=== PATIENT | female | born 1975 | race Caucasian/White ===

== ENCOUNTER 2018-11-29 16:47 | Emergency (ER) | payer OTHER, SELFPAY ==
--- NOTE | 2018-11-29 17:02 | ED.FEMALEGU ---
HPI - Female Genitourinary <Dena Teresa PA-C - Last Filed: 11/29/18 21:38> General Chief complaint: Urogenital-Female Stated complaint: possible kidney stones on right side Time Seen by Provider: 11/29/18 16:56 Source: patient Mode of arrival: ambulatory Limitations: no limitations History of Present Illness HPI Narrative: This 42-year-old female comes to ED due to worsening right flank pain since yesterday and concern for recurrent kidney stone. She had a kidney stone about a year ago which she was advised would pass on its own, and pain did resolve. She states that current pain is similar in quality. She has also had some hematuria and dysuria as well as urgency and frequency, increased for about 4 days. She states that she has known bladder prolapse with surgery pending for that. She states that she was told symptoms may very well be due to this. She is feeling a little bit nauseous now, has not had any vomiting. She has not had fever, chills, sweats. She denies pain elsewhere in the abdomen. She denies any recent change in exercise or injury. She denies any chest pain or dyspnea. She states that the pain is achy but also like a dull knife. Maybe worse with sitting and to a lesser degree standing, no other exacerbating or alleviating features. Related Data Previous Rx's Medication Instructions Recorded hydrocodone-acetaminophen [Poyen] 1 tab PO Q6H PRN #8 tab 11/29/18 tamsulosin [Flomax] 0.4 mg PO DAILY #5 cap 11/29/18 Allergies Allergy/AdvReac Type Severity Reaction Status Date / Time No Known Drug Allergies Allergy Verified 11/29/18 17:03 Review of Systems <Dena Teresa PA-C - Last Filed: 11/29/18 21:38> Review of Systems ROS Unobtainable: All systems reviewed & are unremarkable except as noted in HPI and below PFSH <Dena Teresa PA-C - Last Filed: 11/29/18 21:38> Medical History Bladder prolapse, female, acquired (Chronic) History of renal calculi (Resolved) Surgical History Status post cholecystectomy (Resolved) Status post hysterectomy (Resolved) Social History Smoking Status: Never smoker Social History Smoking Status: Never smoker Exam <Dena Teresa PA-C - Last Filed: 11/29/18 21:38> Narrative Exam Narrative: GENERAL APPEARANCE: Patient sitting comfortably, in no distress. HEENT: PERRL, EOMI, no scleral icterus NECK: Supple, no masses LUNGS: Clear to auscultation bilaterally. HEART: Rate and rhythm regular, normal S1 and S2, no S3 or S4. ABDOMEN: Soft, nondistended, bowel sounds present x 4 quadrants, no masses palpable, no hepatosplenomegaly. Tender at the R. posteriorlateral costal margin, no L. CVAT or TTP elsewhere over the abdomen EXTREMITIES: No edema, no cyanosis DERMATOLOGIC: No jaundice or exanthem NEUROLOGIC: Alert and oriented with normal speech and coordination Initial Vital Signs Initial Vital Signs: Vital Signs Temperature 98.0 F 11/29/18 17:03 Pulse Rate 83 11/29/18 17:03 Respiratory Rate 14 11/29/18 17:03 Blood Pressure 129/67 11/29/18 17:03 Pulse Oximetry 100 11/29/18 17:03 <Donell Dixon DO - Last Filed: 11/29/18 23:13> Initial Vital Signs Initial Vital Signs: Vital Signs Temperature 98.0 F 11/29/18 17:03 Pulse Rate 83 11/29/18 17:03 Respiratory Rate 14 11/29/18 17:03 Blood Pressure 129/67 11/29/18 17:03 Pulse Oximetry 100 11/29/18 17:03 Course <Dena Teresa PA-C - Last Filed: 11/29/18 21:38> Additional Information: Reviewed with patient lab findings and CT findings. She does have a tiny stone on the right side. No other acute findings Patient is feeling considerably improved after medications. She has not had any vomiting and is tolerating oral fluids. She does not feel like she needs more pain medication tonight, was given a dose of tamsulosin and has a prepack of Zofran at home. 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 She agreed to return if any acutely wo. rsening symptoms. Orders Ordered: ED Orders 11/29/18 16:57 Urinalysis and Microscopic Stat 11/29/18 17:17 CT kidney ureter bladder (KUB) Stat 11/29/18 18:05 Complete Blood Count AUTO DIFF Stat Comprehensive Metabolic Panel Stat Lipase Stat Discontinued Medications Hydrocodone Bitart/Acetaminophen (Poyen 5/325) 1 tab PO NOW ONE Stop: 11/29/18 19:08 Last Admin: 11/29/18 19:21 Dose: 1 tab Hydromorphone HCl (Dilaudid) 0.5 mg IV NOW ONE Stop: 11/29/18 20:02 Last Admin: 11/29/18 20:11 Dose: 0.5 mg Sodium Chloride (Normal Saline 0.9%) 1,000 mls @ 1,000 mls/hr IV BOLUS ONE Stop: 11/29/18 18:13 Last Infusion: 11/29/18 20:03 Dose: 0 mls/hr Admin: 11/29/18 17:51 Dose: 1,000 mls/hr Ketorolac Tromethamine (Toradol) 30 mg IV NOW ONE Stop: 11/29/18 17:18 Last Admin: 11/29/18 17:51 Dose: 30 mg Ondansetron HCl (Zofran) 4 mg IV NOW ONE Stop: 11/29/18 17:18 Last Admin: 11/29/18 17:51 Dose: 4 mg Ondansetron HCl (Zofran Odt Prepack) 1 bottle MISC SEEINSTR ONE Stop: 11/29/18 20:56 Last Admin: 11/29/18 21:03 Dose: 1 bottle Tamsulosin HCl (Flomax) 0.4 mg PO NOW ONE Stop: 11/29/18 20:14 Last Admin: 11/29/18 20:18 Dose: 0.4 mg Vital Signs - 8 hr 11/29/18 17:03 11/29/18 19:45 11/29/18 20:43 Temperature 98.0 F Pulse Rate 83 71 72 Respiratory Rate 14 17 18 Blood Pressure 129/67 Blood Pressure [Left Arm] 117/67 111/67 Pulse Oximetry 100 99 97 <Donell Dixon DO - Last Filed: 11/29/18 23:13> Orders Ordered: ED Orders 11/29/18 16:57 Urinalysis and Microscopic Stat 11/29/18 17:17 CT kidney ureter bladder (KUB) Stat 11/29/18 18:05 Complete Blood Count AUTO DIFF Stat Comprehensive Metabolic Panel Stat Lipase Stat Discontinued Medications Hydrocodone Bitart/Acetaminophen (Poyen 5/325) 1 tab PO NOW ONE Stop: 11/29/18 19:08 Last Admin: 11/29/18 19:21 Dose: 1 tab Hydromorphone HCl (Dilaudid) 0.5 mg IV NOW ONE Stop: 11/29/18 20:02 Last Admin: 11/29/18 20:11 Dose: 0.5 mg Sodium Chloride (Normal Saline 0.9%) 1,000 mls @ 1,000 mls/hr IV BOLUS ONE Stop: 11/29/18 18:13 Last Infusion: 11/29/18 20:03 Dose: 0 mls/hr Admin: 11/29/18 17:51 Dose: 1,000 mls/hr Ketorolac Tromethamine (Toradol) 30 mg IV NOW ONE Stop: 11/29/18 17:18 Last Admin: 11/29/18 17:51 Dose: 30 mg Ondansetron HCl (Zofran) 4 mg IV NOW ONE Stop: 11/29/18 17:18 Last Admin: 11/29/18 17:51 Dose: 4 mg Ondansetron HCl (Zofran Odt Prepack) 1 bottle MISC SEEINSTR ONE Stop: 11/29/18 20:56 Last Admin: 11/29/18 21:03 Dose: 1 bottle Tamsulosin HCl (Flomax) 0.4 mg PO NOW ONE Stop: 11/29/18 20:14 Last Admin: 11/29/18 20:18 Dose: 0.4 mg Vital Signs - 8 hr 11/29/18 17:03 11/29/18 19:45 11/29/18 20:43 Temperature 98.0 F Pulse Rate 83 71 72 Respiratory Rate 14 17 18 Blood Pressure 129/67 Blood Pressure [Left Arm] 117/67 111/67 Pulse Oximetry 100 99 97 MDM - Female Genitourinary <Dena Teresa PA-C - Last Filed: 11/29/18 21:38> Lab Data Result diagrams: 11/29/18 18:05 11/29/18 18:05 Lab Results 11/29/18 11/29/18 11/29/18 Range/Units 16:57 18:05 18:05 WBC 9.0 (4.5-11.0) X10^3/uL RBC 4.36 (4.0-5.2) X10^6/uL Hgb 13.4 (12.0-16.0) g/dL Hct 39.9 (36-46) % MCV 91.6 (80-100) fL MCH 30.7 (26-34) PG MCHC 33.5 (30-36) % RDW 12.8 (11.6-14.8) % Plt Count 205 (150-400) X10^3/uL Neut % (Auto) 67.3 (50-75) % Lymph % (Auto) 22.3 L (25-40) % Curry % (Auto) 6.5 (3-14) % Eos % (Auto) 3.0 (2-4) % Baso % (Auto) 0.9 (0-2) % Neut # (Auto) 6100 (5784-4760) /uL Lymph # (Auto) 2000 (7130-3033) /uL Curry # (Auto) 600 (0-900) /uL Eos # (Auto) 300 (0-450) /uL Baso # (Auto) 100 (0-100) /uL Sodium 142 (137-145) mmol/L Potassium 3.9 (3.4-5.1) mmol/L Chloride 102 (98-107) mmol/L Carbon Dioxide 28 (22-32) mmol/L BUN 15 (7-17) mg/dL Creatinine 0.80 (0.52-1.04) mg/dL Estimated GFR > 60.0 (>60) mL/min BUN/Creatinine Ratio 18.8 (6-22) Glucose 77 (70-100) mg/dL Calcium 10.0 (8.4-10.2) mg/dL Total Bilirubin 0.2 (0.2-1.3) mg/dL AST 27 (14-36) IU/L ALT 29 (9-52) IU/L Alkaline Phosphatase 66 (38-126) U/L Total Protein 8.1 (6.3-8.2) g/dL Albumin 5.0 (3.5-5.0) g/dL Globulin 3.1 (1.7-4.1) g/dL Albumin/Globulin Ratio 1.6 (1.0-2.8) Lipase 52 (23-300) U/L Urine Color Yellow Urine Appearance Clear Urine pH 7.5 (4.5-8.0) Ur Specific [place] 1.015 (1.000-1.035) Urine Protein Negative (Negative) Urine Glucose (UA) Negative (Negative) g/dL Urine Ketones Negative (NEGATIVE) Urine Occult Blood Negative (Negative) Urine Nitrate Negative (Negative) Urine Bilirubin Negative (NEGATIVE) Urine Urobilinogen 0.2 (0.2) E.U./dL Ur Leukocyte Esterase Negative (NEGATIVE) Urine RBC None seen (0-5/HPF) Urine WBC 0-1/hpf (0-5/HPF) Ur Squamous Epith Cells 1-5 /hpf Amorphous Sediment 2+ Urine Bacteria None seen (None) Ur Culture Indicated? Cult not indicated Urine Dip Bedside Urine Glucose Negative Bedside Urine Bilirubin - Negative Bedside Urine Ketone - Negative Urine Specific [place] 1.015 Bedside Urine Occult Blood - Negative Bedside Urine pH 7.5 Bedside Urine Protein - Negative Bedside Urine Urobilinogen - Negative Bedside Urine Nitrite - Negative Bedside Urine Leukocytes - Negative Esterase Imaging Data CT scan - abdomen: Radiologist's impression: [address] [address] [address] Scan Report Signed Patient: Sarah Floyd [facility]#: [id number] : 1975Acct:[id number] Age/Sex: 42 / FDate of Service: 11/29/18 Loc: ED Accession Number: [id number] Procedure: CT kidney ureter bladder (KUB) Ordering Provider: Dena Teresa P.A-C PROCEDURE: CT KIDNEY URETER BLADDER (KUB) INDICATIONS: R. flank pain, h/o stone TECHNIQUE: Noncontrast 5 mm thick sections acquired from the diaphragms to the symphysis. 5 mm thick coronal and sagittal reformats were then performed. For radiation dose reduction, the following was used: automated exposure control, adjustment of mA and/or kV according to patient size. COMPARISON: None. FINDINGS: Image quality: Excellent. Lung bases: Lung bases are clear. Heart size is normal. Urinary system: Both kidneys are normal in size. 1 mm nonobstructing stone is noted in the inferior pole of the right kidney. No hydronephrosis or perinephric fat stranding. Both ureters appear non-dilated throughout their expected courses. Bladder wall thickness is normal; no calcified bladder stones. Multiple small phleboliths noted in the lower pelvis. Other solid organs: Liver is normal in size. Gallbladder is absent. Pancreas is normal in contours. Spleen is normal in size. No adrenal nodules. Peritoneum and bowel: Unenhanced bowel loops demonstrate normal wall thickness and caliber. No free fluid or air. The appendix is normal. Nodes and vessels: No retroperitoneal or mesenteric adenopathy by size criteria. Aorta and inferior vena cava are normal in caliber. Abdominal wall: No ventral hernias. Pelvis: No free pelvic fluid. No inguinal hernias or adenopathy. The uterus is absent. Bones: No suspicious bony lesions. No vertebral body compression fractures. Spine degenerative disease and facet arthropathy noted. IMPRESSION: 1. 1 mm nonobstructing right renal stone. 2. No hydronephrosis. 3. No free fluid or free air. 4. No dilated loops of bowel. 5. The appendix is normal. Dictated by: Galilea Lopez MD, PhD on 11/29/2018 at 17:49 Approved by: Galilea Lopez MD, PhD on 11/29/2018 at 17:55 <Donell Dixon, - Last Filed: 11/29/18 23:13> Lab Data Lab Results 11/29/18 11/29/18 11/29/18 Range/Units 16:57 18:05 18:05 WBC 9.0 (4.5-11.0) X10^3/uL RBC 4.36 (4.0-5.2) X10^6/uL Hgb 13.4 (12.0-16.0) g/dL Hct 39.9 (36-46) % MCV 91.6 (80-100) fL MCH 30.7 (26-34) PG MCHC 33.5 (30-36) % RDW 12.8 (11.6-14.8) % Plt Count 205 (150-400) X10^3/uL Neut % (Auto) 67.3 (50-75) % Lymph % (Auto) 22.3 L (25-40) % Curry % (Auto) 6.5 (3-14) % Eos % (Auto) 3.0 (2-4) % Baso % (Auto) 0.9 (0-2) % Neut # (Auto) 6100 (7102-9466) /uL Lymph # (Auto) 2000 (8826-6434) /uL Curry # (Auto) 600 (0-900) /uL Eos # (Auto) 300 (0-450) /uL Baso # (Auto) 100 (0-100) /uL Sodium 142 (137-145) mmol/L Potassium 3.9 (3.4-5.1) mmol/L Chloride 102 (98-107) mmol/L Carbon Dioxide 28 (22-32) mmol/L BUN 15 (7-17) mg/dL Creatinine 0.80 (0.52-1.04) mg/dL Estimated GFR > 60.0 (>60) mL/min BUN/Creatinine Ratio 18.8 (6-22) Glucose 77 (70-100) mg/dL Calcium 10.0 (8.4-10.2) mg/dL Total Bilirubin 0.2 (0.2-1.3) mg/dL AST 27 (14-36) IU/L ALT 29 (9-52) IU/L Alkaline Phosphatase 66 (38-126) U/L Total Protein 8.1 (6.3-8.2) g/dL Albumin 5.0 (3.5-5.0) g/dL Globulin 3.1 (1.7-4.1) g/dL Albumin/Globulin Ratio 1.6 (1.0-2.8) Lipase 52 (23-300) U/L Urine Color Yellow Urine Appearance Clear Urine pH 7.5 (4.5-8.0) Ur Specific [place] 1.015 (1.000-1.035) Urine Protein Negative (Negative) Urine Glucose (UA) Negative (Negative) g/dL Urine Ketones Negative (NEGATIVE) Urine Occult Blood Negative (Negative) Urine Nitrate Negative (Negative) Urine Bilirubin Negative (NEGATIVE) Urine Urobilinogen 0.2 (0.2) E.U./dL Ur Leukocyte Esterase Negative (NEGATIVE) Urine RBC None seen (0-5/HPF) Urine WBC 0-1/hpf (0-5/HPF) Ur Squamous Epith Cells 1-5 /hpf Amorphous Sediment 2+ Urine Bacteria None seen (None) Ur Culture Indicated? Cult not indicated Urine Dip Bedside Urine Glucose Negative Bedside Urine Bilirubin - Negative Bedside Urine Ketone - Negative Urine Specific [place] 1.015 Bedside Urine Occult Blood - Negative Bedside Urine pH 7.5 Bedside Urine Protein - Negative Bedside Urine Urobilinogen - Negative Bedside Urine Nitrite - Negative Bedside Urine Leukocytes - Negative Esterase Discharge Plan Departure Patient Disposition: Home Clinical Impression: Kidney stone on right side Discharge Date/Time: 11/29/18 21:25 Interventions: ED Discharge Assessment Last Done: 11/29/18 21:25 Instructions: DI for Kidney Stones Activity Restrictions/Additional Instructions: You have a very small kidney stone on the right side that should pass on its own. You do not appear to have a urinary infection with this. Since you are feeling better you can rest at home. Drink plenty of fluids. Take ibuprofen 800 mg every 8 hr. You can take the prescription pain medicine if needed but remember it can make you drowsy and not to drive. Take another dose of tamsulosin each evening until you pass the stone (we have given you a dose tonight). 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 Return here if you have any acutely worsening symptoms, i.e. more severe pain, vomiting, fever, etc Prescriptions: New hydrocodone-acetaminophen [Poyen] 5-325 mg tablet 1 tab PO Q6H PRN (Reason: acute kidney stone pain) Qty: 8 RF: 0 tamsulosin [Flomax] 0.4 mg capsule 0.4 mg PO DAILY Qty: 5 RF: 0 <Donell Dixon DO - Last Filed: 11/29/18 23:13> Mikaela ED Attending Bhargavi Attestation: I was available for consultation during this patient's emergency department encounter
[2018-11-29 17:03] VITALS: BP 129/67; PULSE 83; RESP 14; TEMP 36.7; O2SAT 100; BMI 25.1
[2018-11-29 17:06] LABS: Bacteria Urine None Seen; RBC Urine None Seen (0-5/HPF)
[2018-11-29 17:08] LABS: Appearance Urine UA CLEAR; Bilirubin Urine UA NEGATIVE (NEGATIVE); Color Urine UA YELLOW; Glucose Urine UA NEGATIVE (Negative); Ketones Urine UA NEGATIVE (NEGATIVE); Leukocyte Esterase Urine UA NEGATIVE (NEGATIVE); Nitrite Urine UA NEGATIVE (Negative); Occult Blood Urine UA NEGATIVE (Negative); Protein Urine UA NEGATIVE (Negative); Specific Gravity Urine UA 1.015 (1.000-1.035); Urobilinogen Urine UA 0.2 E.U./dL (0.2); pH Urine UA 7.5 (4.5-8.0)
[2018-11-29 17:14] LABS: Amorphous Sediment Urine 2+; Squamous Epithelial Cell Urine 1-5 /HPF; WBC Urine 0-1/HPF (0-5/HPF)
[2018-11-29 17:15] LABS: Culture Indicated Urine Cult Not Indicated
--- NOTE | 2018-11-29 17:18 | ED_ITS ---
HPI - Female Genitourinary <Dena Teresa PA-C - Last Filed: 11/29/18 21:38> General Chief complaint: Urogenital-Female Stated complaint: possible kidney stones on right side Time Seen by Provider: 11/29/18 16:56 Source: patient Mode of arrival: ambulatory Limitations: no limitations History of Present Illness HPI Narrative: This 42-year-old female comes to ED due to worsening right flank pain since yesterday and concern for recurrent kidney stone. She had a kidney stone about a year ago which she was advised would pass on its own, and pain did resolve. She states that current pain is similar in quality. She has also had some hematuria and dysuria as well as urgency and frequency, increased for about 4 days. She states that she has known bladder prolapse with surgery pending for that. She states that she was told symptoms may very well be due to this. She is feeling a little bit nauseous now, has not had any vomiting. She has not had fever, chills, sweats. She denies pain elsewhere in the abdomen. She denies any recent change in exercise or injury. She denies any chest pain or dyspnea. She states that the pain is achy but also like a dull knife. Maybe worse with sitting and to a lesser degree standing, no other exacerbating or alleviating features. Related Data Previous Rx's Medication Instructions Recorded hydrocodone-acetaminophen [[place]] 1 tab PO Q6H PRN #8 tab 11/29/18 tamsulosin [Flomax] 0.4 mg PO DAILY #5 cap 11/29/18 Allergies Allergy/AdvReac Type Severity Reaction Status Date / Time No Known Drug Allergies Allergy Verified 11/29/18 17:03 Review of Systems <Dena Teresa PA-C - Last Filed: 11/29/18 21:38> Review of Systems ROS Unobtainable: All systems reviewed & are unremarkable except as noted in HPI and below PFSH <Dena Teresa PA-C - Last Filed: 11/29/18 21:38> Medical History Bladder prolapse, female, acquired (Chronic) History of renal calculi (Resolved) Surgical History Status post cholecystectomy (Resolved) Status post hysterectomy (Resolved) Social History Smoking Status: Never smoker Social History Smoking Status: Never smoker Exam <Dena Teresa PA-C - Last Filed: 11/29/18 21:38> Narrative Exam Narrative: GENERAL APPEARANCE: Patient sitting comfortably, in no distress. HEENT: PERRL, EOMI, no scleral icterus NECK: Supple, no masses LUNGS: Clear to auscultation bilaterally. HEART: Rate and rhythm regular, normal S1 and S2, no S3 or S4. ABDOMEN: Soft, nondistended, bowel sounds present x 4 quadrants, no masses palpable, no hepatosplenomegaly. Tender at the R. posteriorlateral costal margin, no L. CVAT or TTP elsewhere over the abdomen EXTREMITIES: No edema, no cyanosis DERMATOLOGIC: No jaundice or exanthem NEUROLOGIC: Alert and oriented with normal speech and coordination Initial Vital Signs Initial Vital Signs: Vital Signs Temperature 98.0 F 11/29/18 17:03 Pulse Rate 83 11/29/18 17:03 Respiratory Rate 14 11/29/18 17:03 Blood Pressure 129/67 11/29/18 17:03 Pulse Oximetry 100 11/29/18 17:03 <Donell Dixon DO - Last Filed: 11/29/18 23:13> Initial Vital Signs Initial Vital Signs: Vital Signs Temperature 98.0 F 11/29/18 17:03 Pulse Rate 83 11/29/18 17:03 Respiratory Rate 14 11/29/18 17:03 Blood Pressure 129/67 11/29/18 17:03 Pulse Oximetry 100 11/29/18 17:03 Course <Dena Teresa PA-C - Last Filed: 11/29/18 21:38> Additional Information: Reviewed with patient lab findings and CT findings. She does have a tiny stone on the right side. No other acute findings Patient is feeling considerably improved after medications. She has not had any vomiting and is tolerating oral fluids. She does not feel like she needs more pain medication tonight, was given a dose of tamsulosin and has a prepack of Zofran at home. 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 She agreed to return if any acutely wo. rsening symptoms. Orders Ordered: ED Orders 11/29/18 16:57 Urinalysis and Microscopic Stat 11/29/18 17:17 CT kidney ureter bladder (KUB) Stat 11/29/18 18:05 Complete Blood Count AUTO DIFF Stat Comprehensive Metabolic Panel Stat Lipase Stat Discontinued Medications Hydrocodone Bitart/Acetaminophen ([place] 5/325) 1 tab PO NOW ONE Stop: 11/29/18 19:08 Last Admin: 11/29/18 19:21 Dose: 1 tab Hydromorphone HCl (Dilaudid) 0.5 mg IV NOW ONE Stop: 11/29/18 20:02 Last Admin: 11/29/18 20:11 Dose: 0.5 mg Sodium Chloride (Normal Saline 0.9%) 1,000 mls @ 1,000 mls/hr IV BOLUS ONE Stop: 11/29/18 18:13 Last Infusion: 11/29/18 20:03 Dose: 0 mls/hr Admin: 11/29/18 17:51 Dose: 1,000 mls/hr Ketorolac Tromethamine (Toradol) 30 mg IV NOW ONE Stop: 11/29/18 17:18 Last Admin: 11/29/18 17:51 Dose: 30 mg Ondansetron HCl (Zofran) 4 mg IV NOW ONE Stop: 11/29/18 17:18 Last Admin: 11/29/18 17:51 Dose: 4 mg Ondansetron HCl (Zofran Odt Prepack) 1 bottle MISC SEEINSTR ONE Stop: 11/29/18 20:56 Last Admin: 11/29/18 21:03 Dose: 1 bottle Tamsulosin HCl (Flomax) 0.4 mg PO NOW ONE Stop: 11/29/18 20:14 Last Admin: 11/29/18 20:18 Dose: 0.4 mg Vital Signs - 8 hr 11/29/18 17:03 11/29/18 19:45 11/29/18 20:43 Temperature 98.0 F Pulse Rate 83 71 72 Respiratory Rate 14 17 18 Blood Pressure 129/67 Blood Pressure [Left Arm] 117/67 111/67 Pulse Oximetry 100 99 97 <Donell Dixon DO - Last Filed: 11/29/18 23:13> Orders Ordered: ED Orders 11/29/18 16:57 Urinalysis and Microscopic Stat 11/29/18 17:17 CT kidney ureter bladder (KUB) Stat 11/29/18 18:05 Complete Blood Count AUTO DIFF Stat Comprehensive Metabolic Panel Stat Lipase Stat Discontinued Medications Hydrocodone Bitart/Acetaminophen ([place] 5/325) 1 tab PO NOW ONE Stop: 11/29/18 19:08 Last Admin: 11/29/18 19:21 Dose: 1 tab Hydromorphone HCl (Dilaudid) 0.5 mg IV NOW ONE Stop: 11/29/18 20:02 Last Admin: 11/29/18 20:11 Dose: 0.5 mg Sodium Chloride (Normal Saline 0.9%) 1,000 mls @ 1,000 mls/hr IV BOLUS ONE Stop: 11/29/18 18:13 Last Infusion: 11/29/18 20:03 Dose: 0 mls/hr Admin: 11/29/18 17:51 Dose: 1,000 mls/hr Ketorolac Tromethamine (Toradol) 30 mg IV NOW ONE Stop: 11/29/18 17:18 Last Admin: 11/29/18 17:51 Dose: 30 mg Ondansetron HCl (Zofran) 4 mg IV NOW ONE Stop: 11/29/18 17:18 Last Admin: 11/29/18 17:51 Dose: 4 mg Ondansetron HCl (Zofran Odt Prepack) 1 bottle MISC SEEINSTR ONE Stop: 11/29/18 20:56 Last Admin: 11/29/18 21:03 Dose: 1 bottle Tamsulosin HCl (Flomax) 0.4 mg PO NOW ONE Stop: 11/29/18 20:14 Last Admin: 11/29/18 20:18 Dose: 0.4 mg Vital Signs - 8 hr 11/29/18 17:03 11/29/18 19:45 11/29/18 20:43 Temperature 98.0 F Pulse Rate 83 71 72 Respiratory Rate 14 17 18 Blood Pressure 129/67 Blood Pressure [Left Arm] 117/67 111/67 Pulse Oximetry 100 99 97 MDM - Female Genitourinary <Dena Teresa PA-C - Last Filed: 11/29/18 21:38> Lab Data Result diagrams: 11/29/18 18:05 11/29/18 18:05 Lab Results 11/29/18 11/29/18 11/29/18 Range/Units 16:57 18:05 18:05 WBC 9.0 (4.5-11.0) X10^3/uL RBC 4.36 (4.0-5.2) X10^6/uL Hgb 13.4 (12.0-16.0) g/dL Hct 39.9 (36-46) % MCV 91.6 (80-100) fL MCH 30.7 (26-34) PG MCHC 33.5 (30-36) % RDW 12.8 (11.6-14.8) % Plt Count 205 (150-400) X10^3/uL Neut % (Auto) 67.3 (50-75) % Lymph % (Auto) 22.3 L (25-40) % [place] % (Auto) 6.5 (3-14) % Eos % (Auto) 3.0 (2-4) % Baso % (Auto) 0.9 (0-2) % Neut # (Auto) 6100 (9127-9658) /uL Lymph # (Auto) 2000 (5307-1683) /uL [place] # (Auto) 600 (0-900) /uL Eos # (Auto) 300 (0-450) /uL Baso # (Auto) 100 (0-100) /uL Sodium 142 (137-145) mmol/L Potassium 3.9 (3.4-5.1) mmol/L Chloride 102 (98-107) mmol/L Carbon Dioxide 28 (22-32) mmol/L BUN 15 (7-17) mg/dL Creatinine 0.80 (0.52-1.04) mg/dL Estimated GFR > 60.0 (>60) mL/min BUN/Creatinine Ratio 18.8 (6-22) Glucose 77 (70-100) mg/dL Calcium 10.0 (8.4-10.2) mg/dL Total Bilirubin 0.2 (0.2-1.3) mg/dL AST 27 (14-36) IU/L ALT 29 (9-52) IU/L Alkaline Phosphatase 66 (38-126) U/L Total Protein 8.1 (6.3-8.2) g/dL Albumin 5.0 (3.5-5.0) g/dL Globulin 3.1 (1.7-4.1) g/dL Albumin/Globulin Ratio 1.6 (1.0-2.8) Lipase 52 (23-300) U/L Urine Color Yellow Urine Appearance Clear Urine pH 7.5 (4.5-8.0) Ur Specific [place] 1.015 (1.000-1.035) Urine Protein Negative (Negative) Urine Glucose (UA) Negative (Negative) g/dL Urine Ketones Negative (NEGATIVE) Urine Occult Blood Negative (Negative) Urine Nitrate Negative (Negative) Urine Bilirubin Negative (NEGATIVE) Urine Urobilinogen 0.2 (0.2) E.U./dL Ur Leukocyte Esterase Negative (NEGATIVE) Urine RBC None seen (0-5/HPF) Urine WBC 0-1/hpf (0-5/HPF) Ur Squamous Epith Cells 1-5 /hpf Amorphous Sediment 2+ Urine Bacteria None seen (None) Ur Culture Indicated? Cult not indicated Urine Dip Bedside Urine Glucose Negative Bedside Urine Bilirubin - Negative Bedside Urine Ketone - Negative Urine Specific [place] 1.015 Bedside Urine Occult Blood - Negative Bedside Urine pH 7.5 Bedside Urine Protein - Negative Bedside Urine Urobilinogen - Negative Bedside Urine Nitrite - Negative Bedside Urine Leukocytes - Negative Esterase Imaging Data CT scan - abdomen: Radiologist's impression: [address] [address] [address] Scan Report Signed Patient: [facility]#: [id number] : 1975Acct:[id number] Age/Sex: 42 / FDate of Service: 11/29/18 Loc: ED Accession Number: [id number] Procedure: CT kidney ureter bladder (KUB) Ordering Provider: Dena Teresa P.A-C PROCEDURE: CT KIDNEY URETER BLADDER (KUB) INDICATIONS: R. flank pain, h/o stone TECHNIQUE: Noncontrast 5 mm thick sections acquired from the diaphragms to the symphysis. 5 mm thick coronal and sagittal reformats were then performed. For radiation dose reduction, the following was used: automated exposure control, adjustment of mA and/or kV according to patient size. COMPARISON: None. FINDINGS: Image quality: Excellent. Lung bases: Lung bases are clear. Heart size is normal. Urinary system: Both kidneys are normal in size. 1 mm nonobstructing stone is noted in the inferior pole of the right kidney. No hydronephrosis or perinephric fat stranding. Both ureters appear non-dilated throughout their expected courses. Bladder wall thickness is normal; no calcified bladder stones. Multiple small phleboliths noted in the lower pelvis. Other solid organs: Liver is normal in size. Gallbladder is absent. Pancreas is normal in contours. Spleen is normal in size. No adrenal nodules. Peritoneum and bowel: Unenhanced bowel loops demonstrate normal wall thickness and caliber. No free fluid or air. The appendix is normal. Nodes and vessels: No retroperitoneal or mesenteric adenopathy by size criteria. Aorta and inferior vena cava are normal in caliber. Abdominal wall: No ventral hernias. Pelvis: No free pelvic fluid. No inguinal hernias or adenopathy. The uterus is absent. Bones: No suspicious bony lesions. No vertebral body compression fractures. Spine degenerative disease and facet arthropathy noted. IMPRESSION: 1. 1 mm nonobstructing right renal stone. 2. No hydronephrosis. 3. No free fluid or free air. 4. No dilated loops of bowel. 5. The appendix is normal. Dictated by: Galilea Lopez MD, PhD on 11/29/2018 at 17:49 Approved by: Galilea Lopez MD, PhD on 11/29/2018 at 17:55 <Donell Dixon, - Last Filed: 11/29/18 23:13> Lab Data Lab Results 11/29/18 11/29/18 11/29/18 Range/Units 16:57 18:05 18:05 WBC 9.0 (4.5-11.0) X10^3/uL RBC 4.36 (4.0-5.2) X10^6/uL Hgb 13.4 (12.0-16.0) g/dL Hct 39.9 (36-46) % MCV 91.6 (80-100) fL MCH 30.7 (26-34) PG MCHC 33.5 (30-36) % RDW 12.8 (11.6-14.8) % Plt Count 205 (150-400) X10^3/uL Neut % (Auto) 67.3 (50-75) % Lymph % (Auto) 22.3 L (25-40) % [place] % (Auto) 6.5 (3-14) % Eos % (Auto) 3.0 (2-4) % Baso % (Auto) 0.9 (0-2) % Neut # (Auto) 6100 (4888-9600) /uL Lymph # (Auto) 2000 (6656-9637) /uL [place] # (Auto) 600 (0-900) /uL Eos # (Auto) 300 (0-450) /uL Baso # (Auto) 100 (0-100) /uL Sodium 142 (137-145) mmol/L Potassium 3.9 (3.4-5.1) mmol/L Chloride 102 (98-107) mmol/L Carbon Dioxide 28 (22-32) mmol/L BUN 15 (7-17) mg/dL Creatinine 0.80 (0.52-1.04) mg/dL Estimated GFR > 60.0 (>60) mL/min BUN/Creatinine Ratio 18.8 (6-22) Glucose 77 (70-100) mg/dL Calcium 10.0 (8.4-10.2) mg/dL Total Bilirubin 0.2 (0.2-1.3) mg/dL AST 27 (14-36) IU/L ALT 29 (9-52) IU/L Alkaline Phosphatase 66 (38-126) U/L Total Protein 8.1 (6.3-8.2) g/dL Albumin 5.0 (3.5-5.0) g/dL Globulin 3.1 (1.7-4.1) g/dL Albumin/Globulin Ratio 1.6 (1.0-2.8) Lipase 52 (23-300) U/L Urine Color Yellow Urine Appearance Clear Urine pH 7.5 (4.5-8.0) Ur Specific [place] 1.015 (1.000-1.035) Urine Protein Negative (Negative) Urine Glucose (UA) Negative (Negative) g/dL Urine Ketones Negative (NEGATIVE) Urine Occult Blood Negative (Negative) Urine Nitrate Negative (Negative) Urine Bilirubin Negative (NEGATIVE) Urine Urobilinogen 0.2 (0.2) E.U./dL Ur Leukocyte Esterase Negative (NEGATIVE) Urine RBC None seen (0-5/HPF) Urine WBC 0-1/hpf (0-5/HPF) Ur Squamous Epith Cells 1-5 /hpf Amorphous Sediment 2+ Urine Bacteria None seen (None) Ur Culture Indicated? Cult not indicated Urine Dip Bedside Urine Glucose Negative Bedside Urine Bilirubin - Negative Bedside Urine Ketone - Negative Urine Specific [place] 1.015 Bedside Urine Occult Blood - Negative Bedside Urine pH 7.5 Bedside Urine Protein - Negative Bedside Urine Urobilinogen - Negative Bedside Urine Nitrite - Negative Bedside Urine Leukocytes - Negative Esterase Discharge Plan Departure Patient Disposition: Home Clinical Impression: Kidney stone on right side Discharge Date/Time: 11/29/18 21:25 Interventions: ED Discharge Assessment Last Done: 11/29/18 21:25 Instructions: DI for Kidney Stones Activity Restrictions/Additional Instructions: You have a very small kidney stone on the right side that should pass on its own. You do not appear to have a urinary infection with this. Since you are feeling better you can rest at home. Drink plenty of fluids. Take ibuprofen 800 mg every 8 hr. You can take the prescription pain medicine if needed but remember it can make you drowsy and not to drive. Take another dose of tamsulo sin each evening until you pass the stone (we have given you a dose tonight). 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 Return here if you have any acutely worsening symptoms, i.e. more severe pain, vomiting, fever, etc Prescriptions: New hydrocodone-acetaminophen [[place]] 5-325 mg tablet 1 tab PO Q6H PRN (Reason: acute kidney stone pain) Qty: 8 RF: 0 tamsulosin [Flomax] 0.4 mg capsule 0.4 mg PO DAILY Qty: 5 RF: 0 <Donell Dixon DO - Last Filed: 11/29/18 23:13> Mikaela ED Attending Bhargavi Attestation: I was available for consultation during this patient's emergency department encounter
[2018-11-29] MEDS: ONDANSETRON 4 MG/2 ML INJ IV (17:51)
[2018-11-29] MEDS: SODIUM CHLORIDE 0.9% 1,000 ML 1000 ML IV (17:51)
[2018-11-29] MEDS: KETOROLAC 60 MG/2 ML VIAL 30 MG IV (17:51)
[2018-11-29 18:13] LABS: Add Manual Diff / Slide Review NO; Basophils Absolute Auto 100 /uL (0-100); Basophils Percent Auto 0.9 % (0-2); Eosinophils Absolute Auto 300 /uL (0-450); Hematocrit 39.9 % (36-46); Hemoglobin 13.4 g/dL (12.0-16.0); Lymphocytes Absolute Auto 2000 /uL (1100-4500); Lymphocytes Percent Auto 22.3 % (25-40); Mean Corpuscular HGB Conc 33.5 % (30-36); Mean Corpuscular Hemoglobin 30.7 PG (26-34); Mean Corpuscular Volume 91.6 fL (80-100); Monocytes Absolute Auto 600 /uL (0-900); Monocytes Percent Auto 6.5 % (3-14); Neutrophils Absolute Auto 6100 /uL (1500-7000); Neutrophils Percent Auto 67.3 % (50-75); Platelet Count 205 X10^3/uL (150-400); Red Blood Cell Count 4.36 X10^6/uL (4.0-5.2); Red Cell Distribution Width 12.8 % (11.6-14.8)
[2018-11-29 18:24] LABS: Alanine Aminotransferase 29 IU/L (9-52); Albumin Globulin Ratio 1.6 (1.0-2.8); Alkaline Phosphatase 66 U/L (38-126); Aspartate Aminotransferase 27 IU/L (14-36); BUN Creatinine Ratio 18.8 (6-22); Bilirubin Total 0.2 mg/dL (0.2-1.3); Blood Urea Nitrogen 15 mg/dL (7-17); Carbon Dioxide 28 mmol/L (22-32); Chloride 102 mmol/L (98-107); Estimated Glomerular Filt Rate > 60.0 mL/min (>60); Globulin 3.1 g/dL (1.7-4.1); Glucose 77 mg/dL (70-100); HEMOLYSIS 16 (0-50); Lipase 52 U/L (23-300); Potassium 3.9 mmol/L (3.4-5.1); Sodium 142 mmol/L (137-145); Total Protein 8.1 g/dL (6.3-8.2)
[2018-11-29] MEDS: HYDROCODONE/ACET 5/325 TABLET 1 TAB PO (19:21)
[2018-11-29 19:45] VITALS: BP 117/67; PULSE 71; RESP 17; O2SAT 99
[2018-11-29] MEDS: HYDROMORPHONE 1 MG INJ 0.5 MG IV (20:11)
[2018-11-29] MEDS: TAMSULOSIN 0.4 MG CAPSULE PO (20:18)
[2018-11-29 20:43] VITALS: BP 111/67; PULSE 72; RESP 18; O2SAT 97
[2018-11-29] MEDS: ONDANSETRON 4 MG ODT PREPACK 1 BOTTLE MISC (21:03)
== END 2018-11-29 21:25 | disposition home or self-care (01) ==
PROVIDERS: Emergency Provider Internal Medicine
DX: N20.0 Calculus of kidney (principal)
CPT/HCPCS: 36591; 74176; 80053; 81001; 81003; 83690; 85025; 96361; 96374; 96375; 99283; 99284; J1170; J1885; J2405

== ENCOUNTER 2019-05-09 16:42 | Emergency (ER) | payer OTHER, SELFPAY ==
[2019-05-09 16:46] VITALS: BP 114/71; PULSE 60; RESP 20; TEMP 36.7; O2SAT 98; BMI 25.7
--- NOTE | 2019-05-09 17:24 | DI.US.S_ITS ---
PROCEDURE: US PELVIC COMPLETE INDICATIONS: RIGHT LOWER QUADRANT PAIN TECHNIQUE: Real-time scanning was performed of the pelvic organs, with image documentation. Additional endovaginal scanning was necessary due to incomplete visualization of the adnexal and endometrial structures by transabdominal scanning. COMPARISON: None. FINDINGS: Transabdominal scanning: Limited scanning through the kidneys shows no hydronephrosis. No pathologic free abdominal or pelvic fluid. Endovaginal scanning: Uterus: Status post hysterectomy Ovaries: The ovaries were not visualized on today's study. The appendix is not visualized on today's examination. No free fluid or adenopathy. IMPRESSION: Status post hysterectomy. Nonvisualization of the bilateral ovaries. Nonvisualization of the appendix. No free fluid or adenopathy seen. Dictated by: Jesus Cortez M.D. on 05/09/2019 at 18:59 Approved by: Jesus Cortez M.D. on 05/09/2019 at 19:01
--- NOTE | 2019-05-09 17:30 | ED_ITS ---
HPI - Abdominal Pain General Chief Complaint: Abdominal Pain Stated Complaint: sharp right side stomach pain couple of days Time Seen by Provider: 05/09/19 17:10 Source: patient Mode of arrival: ambulatory Limitations: no limitations History of Present Illness HPI narrative: 43-year-old female comes to the emergency department with complaint of right lower quadrant pain. Patient states it has been for a couple days it has been slowly increasing. She states it does not radiate to her flank or back. She has had some low-grade temperatures of 99 F, patient has had nausea but no vomiting. She has not been eating much in the way of food. She has not had any dysuria, new urgency or frequency. She does have some sense of frequency but had a bladder repair the year 2 ago. She states this is not new. Patient has had kidney stones in the past. She states that this does not feel the same. Patient has had a little bit of diarrhea for the last 24 hours. She states she has noted some blood but she has hemorrhoids so this is not uncommon for her. She has had a cholecystectomy. She also takes medication for fibromyalgia. Denies any allergies to medications, no tobacco, she does drink alcohol occasionally. Occasional THC. Her primary care is Dr. Encinas. Related Data Home Medications Medication Instructions Recorded Confirmed fluoxetine 40 mg PO DAILY 05/09/19 05/14/19 gabapentin 900 mg PO TID 05/09/19 05/14/19 levothyroxine 75 mcg PO DAILY 05/09/19 05/14/19 multivitamin 1 tab PO DAILY 05/09/19 05/14/19 tizanidine 4 mg PO BID 05/09/19 05/14/19 Previous Rx's Medication Instructions Recorded hydromorphone [Dilaudid] 2 mg PO Q4H PRN #20 tab 05/15/19 Allergies Allergy/AdvReac Type Severity Reaction Status Date / Time No Known Drug Allergies Allergy Verified 05/19/19 16:21 Review of Systems Review of Systems ROS Unobtainable: All systems reviewed & are unremarkable except as noted in HPI and below Constitutional Denies chills, Reports fever(s) (Ninety-nine F), Denies lethargy and Denies weakness Cardiovascular Denies chest pain and Denies dyspnea Respiratory Denies dyspnea Gastrointestinal Gastrointestinal: Reports abdominal pain (Right lower quadrant), Denies melena, Reports hematochezia (Noted with stool. Patient states hemorrhoids.), Denies change in bowel habits, Denies constipation, Reports diarrhea, Reports nausea and Denies vomiting Genitourinary Denies hematuria, Reports urinary frequency (No new change), Denies dysuria, Denies flank pain, Denies urinary incontinence and Denies urinary urgency Musculoskeletal Denies back pain Neurologic Denies weakness [facility] Medical History Bladder prolapse, female, acquired (Chronic) History of renal calculi (Resolved) Surgical History (Updated 05/19/19 @ 18:03 by Noreen Verde DO) Status post appendectomy (Acute) Status post cholecystectomy (Resolved) Status post hysterectomy (Resolved) Social History household members: spouse Smoking Status: Former smoker alcohol intake: current substance use type: marijuana Social History household members: spouse Smoking Status: Former smoker alcohol intake: current substance use type: marijuana Exam Narrative Exam Narrative: GENERAL: Alert and oriented x three, well-nourished, well-appearing female in to moderate distress. HEENT: Head normocephalic, atraumatic, EOMI, pupils reactive, face symmetric, moist mucous membranes NECK: Supple, full range of motion CARDIOVASCULAR: Regular rate and rhythm without murmurs, rubs or gallops. RESPIRATORY: Breath sounds equal bilaterally, no wheezes rales or rhonchi. ABDOMEN: Soft, positive for right lower quadrant tenderness. Normoactive bowel sounds all 4 quadrants. Mild guarding, no rebound, no rigidity, no mass. Patient does feel more comfortable holding her right lower quadrant when she tries to walk. : No CVA tenderness EXTREMITIES: Normal range of motion, no clubbing or edema. Neurovascularly intact NEUROLOGICAL: Cranial nerves II through XII grossly intact. Moving all extremities SKIN: Warm, dry, no petechiae, no rashes or lesions. Initial Vital Signs Initial Vital Signs: Vital Signs Temperature 98.1 F 05/09/19 16:46 Pulse Rate 60 05/09/19 16:46 Respiratory Rate 20 05/09/19 16:46 Blood Pressure 114/71 05/09/19 16:46 Pulse Oximetry 98 05/09/19 16:46 Course Orders Ordered: Discontinued Medications Ciprofloxacin (Cipro) 500 mg PO NOW ONE Stop: 05/09/19 19:25 Last Admin: 05/09/19 19:47 Dose: 500 mg Ketorolac Tromethamine (Toradol) 30 mg IV NOW ONE Stop: 05/09/19 18:16 Last Admin: 05/09/19 18:09 Dose: 30 mg Morphine Sulfate (Morphine) 2 mg IV NOW ONE Stop: 05/09/19 18:36 Last Admin: 05/09/19 18:43 Dose: 2 mg Ondansetron HCl (Zofran) 4 mg IV NOW ONE Stop: 05/09/19 17:35 Last Admin: 05/09/19 18:09 Dose: 4 mg Ondansetron HCl (Zofran) 4 mg IV NOW ONE Stop: 05/09/19 18:36 Last Admin: 05/09/19 18:43 Dose: 4 mg Vital Signs - 8 hr 05/09/19 16:46 05/09/19 19:07 Temperature 98.1 F Pulse Rate 60 57 L Respiratory Rate 20 Blood Pressure 114/71 Blood Pressure [Right Arm] 125/78 Pulse Oximetry 98 98 MDM - Abdominal Pain Lab Data Attestation: I reviewed the patient's lab results. Result diagrams: 05/09/19 17:11 05/09/19 17:11 Lab Results 05/09/19 05/09/19 05/09/19 Range/Units 17:11 17:11 17:11 WBC 9.5 (4.5-11.0) X10^3/uL RBC 4.11 (4.0-5.2) X10^6/uL Hgb 12.7 (12.0-16.0) g/dL Hct 38.0 (36-46) % MCV 92.3 (80-100) fL MCH 30.9 (26-34) PG MCHC 33.5 (30-36) % RDW 13.8 (11.6-14.8) % Plt Count 214 (150-400) X10^3/uL Neut % (Auto) 71.9 (50-75) % Lymph % (Auto) 18.2 L (25-40) % [place] % (Auto) 7.0 (3-14) % Eos % (Auto) 2.5 (2-4) % Baso % (Auto) 0.4 (0-2) % Neut # (Auto) 6800 (0916-6224) /uL Lymph # (Auto) 1700 (2051-5243) /uL [place] # (Auto) 700 (0-900) /uL Eos # (Auto) 200 (0-450) /uL Baso # (Auto) 0 (0-100) /uL PT 10.8 (10.1-12.7) SECONDS INR 0.9 (0.9-1.3) APTT 31 (26.4-36.2) SECONDS Sodium 141 (137-145) mmol/L Potassium 3.8 (3.4-5.1) mmol/L Chloride 106 (98-107) mmol/L Carbon Dioxide 26 (22-32) mmol/L BUN 15 (7-17) mg/dL Creatinine 0.80 (0.52-1.04) mg/dL Estimated GFR > 60.0 (>60) mL/min BUN/Creatinine Ratio 18.8 (6-22) Glucose 86 (70-100) mg/dL Calcium 9.5 (8.4-10.2) mg/dL Total Bilirubin 0.5 (0.2-1.3) mg/dL AST 32 (14-36) IU/L ALT 20 (9-52) IU/L Alkaline Phosphatase 77 (38-126) U/L Total Protein 7.6 (6.3-8.2) g/dL Albumin 4.8 (3.5-5.0) g/dL Globulin 2.8 (1.7-4.1) g/dL Albumin/Globulin Ratio 1.7 (1.0-2.8) Lipase 45 (23-300) U/L Urine RBC (0-5/HPF) Urine WBC (0-5/HPF) Ur Squamous Epith Cells (0-5/HPF) Urine Bacteria (None) Ur Culture Indicated? 05/09/19 Range/Units 17:40 WBC (4.5-11.0) X10^3/uL RBC (4.0-5.2) X10^6/uL Hgb (12.0-16.0) g/dL Hct (36-46) % MCV (80-100) fL MCH (26-34) PG MCHC (30-36) % RDW (11.6-14.8) % Plt Count (150-400) X10^3/uL Neut % (Auto) (50-75) % Lymph % (Auto) (25-40) % [place] % (Auto) (3-14) % Eos % (Auto) (2-4) % Baso % (Auto) (0-2) % Neut # (Auto) (3959-9641) /uL Lymph # (Auto) (6842-0265) /uL [place] # (Auto) (0-900) /uL Eos # (Auto) (0-450) /uL Baso # (Auto) (0-100) /uL PT (10.1-12.7) SECONDS INR (0.9-1.3) APTT (26.4-36.2) SECONDS Sodium (137-145) mmol/L Potassium (3.4-5.1) mmol/L Chloride (98-107) mmol/L Carbon Dioxide (22-32) mmol/L BUN (7-17) mg/dL Creatinine (0.52-1.04) mg/dL Estimated GFR (>60) mL/min BUN/Creatinine Ratio (6-22) Glucose (70-100) mg/dL Calcium (8.4-10.2) mg/dL Total Bilirubin (0.2-1.3) mg/dL AST (14-36) IU/L ALT (9-52) IU/L Alkaline Phosphatase (38-126) U/L Total Protein (6.3-8.2) g/dL Albumin (3.5-5.0) g/dL Globulin (1.7-4.1) g/dL Albumin/Globulin Ratio (1.0-2.8) Lipase (23-300) U/L Urine RBC 0-1/hpf (0-5/HPF) Urine WBC 10-30/hpf H (0-5/HPF) Ur Squamous Epith Cells 1-5 /hpf (0-5/HPF) Urine Bacteria Occasional (0-1) (None) Ur Culture Indicated? Specimen cultured Point of care testing: Point of Care Testing Test Results Negative Urine Dip Bedside Urine Glucose Negative Bedside Urine Bilirubin - Negative Bedside Urine Ketone - Negative Urine Specific [place] 1.010 Bedside Urine Occult Blood +/- Bedside Urine pH 6.5 Bedside Urine Protein - Negative Bedside Urine Urobilinogen - Negative Bedside Urine Nitrite - Negative Bedside Urine Leukocytes +++ [address] scan - abdomen: Radiologist's impression: ew scant colonic diverticula with minimal pericolonic stranding in the sigmoid colon. Findings may represent early inflammatory changes/diverticulitis versus volume averaging with small amount of adjacent pelvic free fluid. No organized fluid collection or free air. 2. Mild circumferential wall thickening of the distal colon favored to represent incomplete distention. Consider further evaluation with direct visualization as an outpatient to exclude underlying neoplastic process. 3. Normal appendix. 4. Status post hysterectomy. Dictated by: Jesus Cortez M.D. on 05/09/2019 19:05 Approved by: Jesus Cortez M.D. on 05/09/2019 at 19:15 MDM Narrative Medical decision making narrative: Discussed with patient I would suspect that she has possibly appendicitis, kidney stone, pyelonephritis, ovarian cyst, possibly a colitis or diverticulitis that on the right side. Discussed with patient plan for lab work. Would like to start with ultrasound to see if we can evaluate her appendix. Lab work does not show any acute changes to CBC or CMP, lipase. UA shows leuks and hematuria. Urine is negative. US was not able to identify the appendix. They were not able to visualize any other changes concerning for ovarian cyst or renal causes. I discussed with patient she is more uncomfortable after the ultrasound. She was given 2 mg of morphine and some additional Zofran as she had 1 more episode of vomiting. Patient and I discussed in CT of the abdomen pelvis was ordered. CT shows few diverticula with some stranding in the sigmoid could be early inflammatory changes/diverticulitis. No organized fluid collection or free air. Mild circumferential wall thickening of the distal colon fevers represent incomplete distention. Consider further evaluate direct visualizations outpatient exclude underlying neoplastic process. Appendix is noted normal. Discussed with patient she is feeling a little bit better after the Zofran and morphine. Patient's urine does show 10-30 WBCs with occasional bacteria and sent for culture. We discussed she could have a UTI/early pyelo. She does have some mild thickening and diverticuli but it is more on the sigmoid and distal colon which I would expect would be more centralized and left-sided pain. D iscussed with patient I would like to start her on antibiotics, we discussed doing a single antibiotic versus coverage for like colitis/diverticulitis. We discussed the risks versus benefits and she likes to start with angled type of antibiotic. Given 1st dose of antibiotics here in the department to confirm she can tolerate oral antibiotics. Discharge Plan Departure Patient Disposition: Home Clinical Impression: UTI (urinary tract infection) Discharge Date/Time: 05/09/19 20:30 Interventions: ED Discharge Assessment Last Done: 05/09/19 20:29 Instructions: DI for Urinary Tract Infection (UTI) Activity Restrictions/Additional Instructions: Follow up with primary care in the next 2-3 days for recheck if you are not feeling significantly better. Her urine is concerning for UTI your CT scan shows some mild thickening which could be a possible colitis but is not consi stent with the location of your pain. Take antibiotics until completely gone. Take zofran sublingually every 6 hours as needed for nausea. Take Noble 1 tablet every 6-8 hours as needed for pain. This medication can make you nauseous take a Zofran 20 minutes prior to taking Noble. Return to the emergency department for fevers greater than 100.4 F, worsening abdominal pain, flank pain, persistent vomiting, if you are unable to keep down your antibiotics worsening diarrhea or bloody stools or other new or concerning symptoms. Prescriptions: No Action fluoxetine 40 mg capsule 40 mg PO DAILY RF: 0 tizanidine 2 mg tablet 4 mg PO BID RF: 0 levothyroxine 75 mcg tablet 75 mcg PO DAILY RF: 0 gabapentin 300 mg capsule 900 mg PO TID RF: 0 multivitamin Tablet 1 tab PO DAILY RF: 0 hydromorphone [Dilaudid] 2 mg tablet 2 mg PO Q4H PRN (Reason: pain) Qty: 20 RF: 0
[2019-05-09 17:41] LABS: Add Manual Diff / Slide Review NO; Basophils Absolute Auto 0 /uL (0-100); Basophils Percent Auto 0.4 % (0-2); Eosinophils Absolute Auto 200 /uL (0-450); Eosinophils Percent Auto 2.5 % (2-4); Hemoglobin 12.7 g/dL (12.0-16.0); INR 0.9 (0.9-1.3); Lymphocytes Absolute Auto 1700 /uL (1100-4500); Lymphocytes Percent Auto 18.2 % (25-40); Mean Corpuscular HGB Conc 33.5 % (30-36); Mean Corpuscular Hemoglobin 30.9 PG (26-34); Mean Corpuscular Volume 92.3 fL (80-100); Monocytes Absolute Auto 700 /uL (0-900); Neutrophils Absolute Auto 6800 /uL (1500-7000); Neutrophils Percent Auto 71.9 % (50-75); Platelet Count 214 X10^3/uL (150-400); Prothrombin Time 10.8 SECONDS (10.1-12.7); Red Blood Cell Count 4.11 X10^6/uL (4.0-5.2); Red Cell Distribution Width 13.8 % (11.6-14.8); White Blood Cell Count 9.5 X10^3/uL (4.5-11.0)
[2019-05-09 17:44] LABS: PTT Partial Thromboplastin Tim 31 SECONDS (26.4-36.2)
[2019-05-09 17:45] LABS: Alanine Aminotransferase 20 IU/L (9-52); Albumin 4.8 g/dL (3.5-5.0); Albumin Globulin Ratio 1.7 (1.0-2.8); Alkaline Phosphatase 77 U/L (38-126); Aspartate Aminotransferase 32 IU/L (14-36); BUN Creatinine Ratio 18.8 (6-22); Bilirubin Total 0.5 mg/dL (0.2-1.3); Blood Urea Nitrogen 15 mg/dL (7-17); Calcium 9.5 mg/dL (8.4-10.2); Carbon Dioxide 26 mmol/L (22-32); Chloride 106 mmol/L (98-107); Estimated Glomerular Filt Rate > 60.0 mL/min (>60); Globulin 2.8 g/dL (1.7-4.1); Glucose 86 mg/dL (70-100); HEMOLYSIS < 15 (0-50); Lipase 45 U/L (23-300); Potassium 3.8 mmol/L (3.4-5.1); Sodium 141 mmol/L (137-145); Total Protein 7.6 g/dL (6.3-8.2)
[2019-05-09] MEDS: ONDANSETRON 4 MG/2 ML INJ IV ×2 (18:09→18:43)
[2019-05-09] MEDS: KETOROLAC 60 MG/2 ML VIAL 30 MG IV (18:09)
--- NOTE | 2019-05-09 18:33 | DI.CT.S_ITS ---
PROCEDURE: CT ABDOMEN PELVIS W CON INDICATIONS: RLQ pain, ? appendicitis TECHNIQUE: After the administration of intravenous contrast, 5 mm thick sections acquired from the diaphragm to the symphysis. 5 mm coronal and sagittal reformats were acquired. For radiation dose reduction, the following was used: automated exposure control, adjustment of mA and/or kV according to patient size. COMPARISON: [facility], CT, CT KIDNEY URETER BLADDER ([facility]), 11/29/2018, 17:21. FINDINGS: Image quality: Excellent. ABDOMEN: Lung bases: Mild bibasilar atelectasis. Heart size is normal. Solid organs: Liver is normal in size and enhancement. Gallbladder is not visualized as before presumably surgically removed. Biliary system is non dilated. Pancreas enhances normally. Spleen is normal in size and enhancement. No adrenal nodules. Kidneys demonstrate normal size and enhancement, without hydronephrosis. Peritoneum and bowel: The appendix is normal. No evidence for bowel obstruction. Scattered colonic diverticulosis involving the sigmoid colon with minimal pericolonic stranding possibly related to early inflammatory change versus volume averaging with small amount of adjacent pelvic free fluid. Distal colon is decompressed with mild circumferential wall thickening which is favored to represent sequela of incomplete distention. No asymmetric wall thickening. No organized fluid collection or free air. Nodes and vessels: No retroperitoneal or mesenteric adenopathy by size criteria. Aorta and inferior vena cava are normal in size. Miscellaneous: No ventral hernias. PELVIS: Genitourinary: Bladder wall thickness is normal. Status post hysterectomy. Visualized ovary/adnexa appear unremarkable in CT appearance. Miscellaneous: No inguinal hernias or adenopathy. Bones: No suspicious bony lesions. No acute vertebral body compression fractures. Multilevel spondylitic changes. IMPRESSION: 1. A few scant colonic diverticula with minimal pericolonic stranding in the sigmoid colon. Findings may represent early inflammatory changes/diverticulitis versus volume averaging with small amount of adjacent pelvic free fluid. No organized fluid collection or free air. 2. Mild circumferential wall thickening of the distal colon favored to represent incomplete distention. Consider further evaluation with direct visualization as an outpatient to exclude underlying neoplastic process. 3. Normal appendix. 4. Status post hysterectomy. Dictated by: Jesus Cortez M.D. on 05/09/2019 19:05 Approved by: Jesus Cortez M.D. on 05/09/2019 at 19:15
[2019-05-09] MEDS: MORPHINE 2 MG/ML INJ IV (18:43)
[2019-05-09 19:07] VITALS: BP 125/78; PULSE 57; O2SAT 98
[2019-05-09 19:14] LABS: Bacteria Urine Occasional (0-1); Culture Indicated Urine Specimen Cultured; RBC Urine 0-1/HPF (0-5/HPF); Squamous Epithelial Cell Urine 1-5 /HPF (0-5/HPF); WBC Urine 10-30/HPF (0-5/HPF)
[2019-05-09] MEDS: CIPROFLOXACIN 500 MG TABLET PO (19:47)
[2019-05-09 20:29] VITALS: BP 121/70; PULSE 56; RESP 12; O2SAT 99
== END 2019-05-09 20:30 | disposition home or self-care (01) ==
PROVIDERS: Emergency Provider Emergency Medicine
DX: N39.0 Urinary tract infection, site not specified (principal)
CPT/HCPCS: 36591; 74177; 76830; 76856; 80053; 81003; 81015; 81025; 83690; 85025; 85610; 85730; 87086; 93005; 93010; 96374; 96375; 96376; 99282; 99285; J1885; J2270; J2405; Q9967

== ENCOUNTER 2019-05-13 18:44 | Observation (INO) | payer OTHER, SELFPAY ==
[2019-05-13 18:51] VITALS: BP 113/63; PULSE 81; RESP 18; TEMP 37.4; O2SAT 100
[2019-05-13 19:11] LABS: Add Manual Diff / Slide Review NO; Basophils Absolute Auto 0 /uL (0-100); Basophils Percent Auto 0.4 % (0-2); Eosinophils Absolute Auto 200 /uL (0-450); Hematocrit 38.8 % (36-46); Lymphocytes Absolute Auto 2000 /uL (1100-4500); Lymphocytes Percent Auto 19.3 % (25-40); Mean Corpuscular HGB Conc 33.5 % (30-36); Mean Corpuscular Hemoglobin 30.6 PG (26-34); Mean Corpuscular Volume 91.4 fL (80-100); Monocytes Absolute Auto 600 /uL (0-900); Monocytes Percent Auto 5.7 % (3-14); Neutrophils Absolute Auto 7400 /uL (1500-7000); Neutrophils Percent Auto 72.6 % (50-75); Platelet Count 207 X10^3/uL (150-400); Red Blood Cell Count 4.25 X10^6/uL (4.0-5.2); Red Cell Distribution Width 13.9 % (11.6-14.8); White Blood Cell Count 10.2 X10^3/uL (4.5-11.0)
--- NOTE | 2019-05-13 19:15 | ED.ABDPAIN ---
HPI - Abdominal Pain General Chief Complaint: Abdominal Pain Stated Complaint: RIGHT SIDE PAIN Time Seen by Provider: 05/13/19 18:50 Source: patient and family Mode of arrival: ambulatory Limitations: no limitations History of Present Illness HPI narrative: 43-year-old female nonsmoker presents with family in the chief complaint of worsening pelvic and right lower quadrant pain over the past few days. She was initially seen in our emergency department a few days ago with right lower quadrant pain and concerns for appendicitis. She had some nausea and decreased appetite along with this pain and urinary complaints including dysuria, urgency and frequency. She had a very thorough physical examination and lab workup including ultrasound and CT. In the end she was diagnosed with a urinary tract infection and the possibility of colitis, and was placed on Cipro. She took the medications as directed and when her symptoms started worsening yesterday she went to her primary care provider's office. She started becoming increasingly nauseated and had a temporizing to 100? F. She states her pain is worse with motion and improves with rest. She denies vomiting but feels quite nauseated. She denies any vaginal bleeding but states that she has had a small amount of vaginal discharge that she had a bladder sling a few months ago. She has been using Premarin cream to help. complaint: abdominal pain Onset (ago): day(s) Pain Consistency: constant Location: RLQ Severity: severe Quality: cramping Radiation: none Migration to: no migration Relieving factors: rest Exacerbating factors: movement Associated symptoms: nausea Related Data Home Medications Medication Instructions Recorded Confirmed fluoxetine 40 mg PO DAILY 05/09/19 05/14/19 gabapentin 900 mg PO TID 05/09/19 05/14/19 levothyroxine 75 mcg PO DAILY 05/09/19 05/14/19 multivitamin 1 tab PO DAILY 05/09/19 05/14/19 tizanidine 4 mg PO BID 05/09/19 05/14/19 Previous Rx's Medication Instructions Recorded ciprofloxacin HCl 500 mg PO BID #20 tab 05/09/19 hydrocodone-acetaminophen [[place]] 1 tab PO Q6H PRN #7 tab 05/09/19 ondansetron HCl [Zofran] 4 mg PO Q6H PRN #5 tab 05/09/19 Allergies Allergy/AdvReac Type Severity Reaction Status Date / Time No Known Drug Allergies Allergy Verified 05/13/19 18:54 Review of Systems Constitutional Denies chills, Denies fever(s), Denies lethargy and Denies weakness Eyes Denies change in vision, Denies eye discharge, Denies irritation and Denies loss of vision ENT Ears, Nose, Mouth, and Throat: Denies change in voice, Denies neck pain and Denies sore throat Cardiovascular Denies chest pain, Denies irregular heart rhythm, Denies lightheadedness, Denies palpitations, Denies dyspnea, Denies dyspnea on exertion and Denies orthopnea Respiratory Denies cough, Denies dyspnea, Denies dyspnea on exertion and Denies wheezing Gastrointestinal Gastrointestinal: Reports abdominal pain, Denies change in bowel habits, Denies diarrhea, Reports nausea and Denies vomiting Genitourinary Denies hematuria, Reports pelvic pain, Denies flank pain, Denies urinary incontinence, Denies urinary urgency and Reports vaginal discharge Musculoskeletal Denies neck pain Integumentary/Breasts Denies pruritus, Denies erythema, Denies rash and Denies wounds Neurologic Denies confusion, Denies loss of vision and Denies weakness Psychiatric Denies anxiety, Denies confusion, Denies depression, Denies homicidal ideation and Denies suicidal ideation Endocrine Denies palpitations Hematologic/Lymphatic Denies easy bruising Allergic/Immunologic Denies wheezing PFSH Medical History Bladder prolapse, female, acquired (Chronic) History of renal calculi (Resolved) Surgical History Status post cholecystectomy (Resolved) Status post hysterectomy (Resolved) Social History (Updated 05/09/19 @ 17:28 by Yaneli Polanco DO) household members: spouse Smoking Status: Former smoker alcohol intake: current substance use type: marijuana Social History household members: spouse Smoking Status: Former smoker alcohol intake: current substance use type: marijuana Exam Narrative Exam Narrative: GENERAL: [43] year old patient appears stated age. Well-nourished, well-developed patient, in severe distress, obviously in significant pain, rubbing her lower abdomen, tearful, holding an emesis bag HEAD: Atraumatic. Normocephalic. EYES: Pupils equal round and reactive. Extraocular motions intact. No scleral icterus. No injection or drainage. ENT: Nose without bleeding, purulent drainage. Throat without erythema, tonsillar hypertrophy or exudate. Airway patent. NECK: Trachea midline. Non tender CARDIOVASCULAR: Regular rate and rhythm without murmurs, gallops, or rubs. RESPIRATORY: Clear to auscultation. Breath sounds equal bilaterally. No wheezes, rales, or rhonchi. GASTROINTESTINAL: Abdomen soft, tender in the right lower quadrant, nondistended. PELVIC: mild yellowish discharge from vaginal cuff with area of erythematous tissue EXTREMITIES: No edema or joint tenderness. BACK: Nontender without deformity or crepitance. No flank tenderness. NEURO: AOx3. SKIN: No rash or erythema of visible areas Initial Vital Signs Initial Vital Signs: Vital Signs Temperature 99.4 F 05/13/19 18:51 Pulse Rate 81 05/13/19 18:51 Respiratory Rate 18 05/13/19 18:51 Blood Pressure 113/63 05/13/19 18:51 Pulse Oximetry 100 05/13/19 18:51 Course Orders Ordered: ED Orders 05/13/19 21:45 Urine Chlamydia Gonorrhea PCR Stat Urine Culture Stat Urine Microscopic Stat 05/13/19 23:05 Genital Culture Stat JUANCARLOS Prep Stat Sodium Chloride (Normal Saline 0.9%) 1,000 mls @ 125 mls/hr IV CONT NAFISA Last Admin: 05/14/19 01:15 Dose: 125 mls/hr Morphine Sulfate (Morphine) 2 mg IV Q4HR PRN PRN Reason: Pain, Severe (7-10) Last Admin: 05/14/19 05:03 Dose: 2 mg Admin: 05/14/19 01:16 Dose: 2 mg Ondansetron HCl (Zofran) 4 mg IV Q4HR PRN PRN Reason: Nausea And Vomiting Last Admin: 05/14/19 01:32 Dose: 4 mg Sodium Chloride (Normal Saline 0.9% Flush) 10 ml IV PRN PRN PRN Reason: Flush Discontinued Medications Hydromorphone HCl (Dilaudid) 0.5 mg IV NOW ONE Stop: 05/13/19 19:43 Last Admin: 05/13/19 19:51 Dose: 0.5 mg Hydromorphone HCl (Dilaudid) 0.5 mg IV NOW ONE Stop: 05/13/19 20:26 Last Admin: 05/13/19 20:28 Dose: 0.5 mg Hydromorphone HCl (Dilaudid) 1 mg IV NOW ONE Stop: 05/13/19 21:05 Last Admin: 05/13/19 21:11 Dose: 1 mg Hydromorphone HCl (Dilaudid) 1 mg IV NOW ONE Stop: 05/13/19 23:54 Last Admin: 05/13/19 23:57 Dose: 1 mg Ketorolac Tromethamine (Toradol) 15 mg IV NOW ONE Stop: 05/13/19 23:08 Last Admin: 05/13/19 23:15 Dose: 15 mg Ondansetron HCl (Zofran) 4 mg IV NOW ONE Stop: 05/13/19 18:55 Last Admin: 05/13/19 19:33 Dose: 4 mg Ondansetron HCl (Zofran) 4 mg IV NOW ONE Stop: 05/13/19 20:16 Last Admin: 05/13/19 20:22 Dose: 4 mg Consultations Consultation #1: call to Dr. Bustos whom is happy to have on her service Vital Signs - 8 hr 05/13/19 22:55 05/14/19 00:00 05/14/19 00:27 Temperature 98.5 F Pulse Rate 63 54 L 57 L Respiratory Rate 18 Blood Pressure 133/66 Blood Pressure [Right Arm] 122/52 L 113/58 L Pulse Oximetry 96 96 97 05/14/19 04:40 Temperature 98.6 F Pulse Rate 57 L Respiratory Rate 18 Blood Pressure 113/70 Blood Pressure [Right Arm] Pulse Oximetry MDM - Abdominal Pain Lab Data Result diagrams: 05/13/19 19:00 05/13/19 19:00 Lab Results 05/13/19 05/13/19 05/13/19 Range/Units 19:00 19:00 19:00 WBC 10.2 (4.5-11.0) X10^3/uL RBC 4.25 (4.0-5.2) X10^6/uL Hgb 13.0 (12.0-16.0) g/dL Hct 38.8 (36-46) % MCV 91.4 (80-100) fL MCH 30.6 (26-34) PG MCHC 33.5 (30-36) % RDW 13.9 (11.6-14.8) % Plt Count 207 (150-400) X10^3/uL Neut % (Auto) 72.6 (50-75) % Lymph % (Auto) 19.3 L (25-40) % [place] % (Auto) 5.7 (3-14) % Eos % (Auto) 2.0 (2-4) % Baso % (Auto) 0.4 (0-2) % Neut # (Auto) 7400 H (1280-2717) /uL Lymph # (Auto) 2000 (5915-7910) /uL [place] # (Auto) 600 (0-900) /uL Eos # (Auto) 200 (0-450) /uL Baso # (Auto) 0 (0-100) /uL PT 10.9 (10.1-12.7) SECONDS INR 1.0 (0.9-1.3) APTT 31 (26.4-36.2) SECONDS Sodium 141 (137-145) mmol/L Potassium 3.7 (3.4-5.1) mmol/L Chloride 104 (98-107) mmol/L Carbon Dioxide 26 (22-32) mmol/L BUN 11 (7-17) mg/dL Creatinine 0.90 (0.52-1.04) mg/dL Estimated GFR > 60.0 (>60) mL/min BUN/Creatinine Ratio 12.2 (6-22) Glucose 112 H (70-100) mg/dL Calcium 10.0 (8.4-10.2) mg/dL Total Bilirubin 0.6 (0.2-1.3) mg/dL AST 27 (14-36) IU/L ALT 19 (9-52) IU/L Alkaline Phosphatase 71 (38-126) U/L Total Protein 7.9 (6.3-8.2) g/dL Albumin 4.9 (3.5-5.0) g/dL Globulin 3.0 (1.7-4.1) g/dL Albumin/Globulin Ratio 1.6 (1.0-2.8) Lipase 34 (23-300) U/L Urine RBC (0-5/HPF) Urine WBC (0-5/HPF) Ur Squamous Epith Cells (0-5/HPF) Amorphous Sediment Urine Bacteria (None) Ur Culture Indicated? Ur Chlamydia DNA (PCR) N gonorrhoeae DNA (PCR) 05/13/19 05/13/19 Range/Units 21:45 21:45 WBC (4.5-11.0) X10^3/uL RBC (4.0-5.2) X10^6/uL Hgb (12.0-16.0) g/dL Hct (36-46) % MCV (80-100) fL MCH (26-34) PG MCHC (30-36) % RDW (11.6-14.8) % Plt Count (150-400) X10^3/uL Neut % (Auto) (50-75) % Lymph % (Auto) (25-40) % [place] % (Auto) (3-14) % Eos % (Auto) (2-4) % Baso % (Auto) (0-2) % Neut # (Auto) (1511-3421) /uL Lymph # (Auto) (2910-1816) /uL [place] # (Auto) (0-900) /uL Eos # (Auto) (0-450) /uL Baso # (Auto) (0-100) /uL PT (10.1-12.7) SECONDS INR (0.9-1.3) APTT (26.4-36.2) SECONDS Sodium (137-145) mmol/L Potassium (3.4-5.1) mmol/L Chloride (98-107) mmol/L Carbon Dioxide (22-32) mmol/L BUN (7-17) mg/dL Creatinine (0.52-1.04) mg/dL Estimated GFR (>60) mL/min BUN/Creatinine Ratio (6-22) Glucose (70-100) mg/dL Calcium (8.4-10.2) mg/dL Total Bilirubin (0.2-1.3) mg/dL AST (14-36) IU/L ALT (9-52) IU/L Alkaline Phosphatase (38-126) U/L Total Protein (6.3-8.2) g/dL Albumin (3.5-5.0) g/dL Globulin (1.7-4.1) g/dL Albumin/Globulin Ratio (1.0-2.8) Lipase (23-300) U/L Urine RBC 0-1/hpf (0-5/HPF) Urine WBC 1-5/hpf (0-5/HPF) Ur Squamous Epith Cells 1-5 /hpf (0-5/HPF) Amorphous Sediment 1+ Urine Bacteria Few (2-10) H (None) Ur Culture Indicated? Specimen cultured Ur Chlamydia DNA (PCR) Not detected N gonorrhoeae DNA (PCR) Not detected Point of care testing: Urine Dip Bedside Urine Glucose Negative Bedside Urine Bilirubin - Negative Bedside Urine Ketone - Negative Urine Specific [place] 1.010 Bedside Urine Occult Blood +/- Bedside Urine pH 7.0 Bedside Urine Protein - Negative Bedside Urine Urobilinogen - Negative Bedside Urine Nitrite - Negative Bedside Urine Leukocytes + 70 Esterase Imaging Data US - abdomen: Radiologist's impression: [address] [id number] Ultrasound Report Signed Patient: Sarah Floyd [facility]#: [id number] : 1975Acct:[id number] Age/Sex: 43 / FDate of Service: 05/13/19 Loc: ED Accession Number: [id number] Procedure: US pelvic complete Ordering Provider: Donis Lawrence D.O. PROCEDURE: US PELVIC COMPLETE INDICATIONS: RIGHT PELVIC PAIN TECHNIQUE: Real-time scanning was performed of the pelvic organs, with image documentation. Additional endovaginal scanning was necessary due to incomplete visualization of the adnexal and endometrial structures by transabdominal scanning. COMPARISON: [facility], CT, CT ABDOMEN PELVIS W CON, 05/13/2019, 21:15. [facility], US, US PELVIC COMPLETE, 05/09/2019, 18:12. FINDINGS: Transabdominal scanning: Limited scanning through the kidneys shows no hydronephrosis. No pathologic free abdominal or pelvic fluid. Endovaginal scanning: Uterus: Uterus has been removed. Ovaries: Ovaries are nonvisualized. Miscellaneous: Mild fluid is noted present within the mid pelvis and right adnexal region. IMPRESSION: 1. Nonvisualization of the ovaries. 2. Mild free fluid within the lower pelvis as well as the right adnexal region. Dictated by: Anne Khan M.D. on 05/13/2019 at 21:37 Approved by: Anne Khan M.D. on 05/13/2019 at 21:41 CT scan - abdomen: Radiologist's impression: [address] [address] [address] Scan Report Signed Patient: Sarah Floyd [facility]#: [id number] : 1975Acct:[id number] Age/Sex: 43 / FDate of Service: 05/13/19 Loc: ED Accession Number: [id number] Procedure: CT abdomen pelvis w con Ordering Provider: Donis Lawrence D.O. PROCEDURE: CT ABDOMEN PELVIS W CON INDICATIONS: severe abdominal pain, sent by PCP for repeat TECHNIQUE: After the administration of intravenous contrast, 5 mm thick sections acquired from the diaphragm to the symphysis. 5 mm coronal and sagittal reformats were acquired. For radiation dose reduction, the following was used: automated exposure control, adjustment of mA and/or kV according to patient size. COMPARISON: [facility], US, US PELVIC COMPLETE, 05/13/2019, 20:39. [facility], CT, CT ABDOMEN PELVIS W CON, 05/09/2019, 18:51. FINDINGS: Image quality: Excellent. ABDOMEN: Lung bases: Lung bases are clear. Heart size is normal. Solid organs: Liver is steatosis.. Gallbladder is not visualized. Biliary system is non dilated. Pancreas enhances normally. Spleen is normal in size and enhancement. No adrenal nodules. Kidneys demonstrate normal size and enhancement, without hydronephrosis. Punctate low attenuation lower pole renal foci too small to definitively characterize likely cysts. These are unchanged. Peritoneum and bowel: Bowel loops demonstrate normal wall thickness and caliber. No free fluid or air. Appendix is unremarkable. Minimal scattered diverticula are present. Nodes and vessels: No retroperitoneal or mesenteric adenopathy by size criteria. Aorta and inferior vena cava are normal in size. Miscellaneous: No ventral hernias. PELVIS: Genitourinary: Bladder wall thickness is normal. Miscellaneous: No inguinal hernias or adenopathy. Bones: No suspicious bony lesions. No vertebral body compression fractures. IMPRESSION: 1. Stable interval exam without visualized acute abdominal or pelvic process. 2. Diverticulosis. MDM Narrative Medical decision making narrative: 43-year-old female returns for evaluation of worsening lower abdominal pain. Repeat imaging demonstrates no appendicitis or other obvious source of pain. Labs are unremarkable. Patient requires multiple doses of IV pain medication. She is unfit for discharge as her pain is not controlled and there is need for ongoing abdominal exams to further characterize her condition Discharge Plan Departure Patient Disposition: Admitted as Observation Clinical Impression: Pelvic pain Discharge Date/Time: 05/14/19 00:31 Interventions: ED Discharge Assessment Last Done: 05/14/19 00:13 Admit Date/Time: 05/13/19 23:37 Admit Provider: Surekha Bustos
[2019-05-13 19:16] LABS: Prothrombin Time 10.9 SECONDS (10.1-12.7)
[2019-05-13 19:18] LABS: PTT Partial Thromboplastin Tim 31 SECONDS (26.4-36.2)
[2019-05-13 19:20] LABS: Alanine Aminotransferase 19 IU/L (9-52); Albumin 4.9 g/dL (3.5-5.0); Albumin Globulin Ratio 1.6 (1.0-2.8); Alkaline Phosphatase 71 U/L (38-126); Aspartate Aminotransferase 27 IU/L (14-36); BUN Creatinine Ratio 12.2 (6-22); Bilirubin Total 0.6 mg/dL (0.2-1.3); Blood Urea Nitrogen 11 mg/dL (7-17); Carbon Dioxide 26 mmol/L (22-32); Chloride 104 mmol/L (98-107); Estimated Glomerular Filt Rate > 60.0 mL/min (>60); Glucose 112 mg/dL (70-100); HEMOLYSIS < 15 (0-50); Lipase 34 U/L (23-300); Potassium 3.7 mmol/L (3.4-5.1); Sodium 141 mmol/L (137-145); Total Protein 7.9 g/dL (6.3-8.2)
[2019-05-13] MEDS: ONDANSETRON 4 MG/2 ML INJ IV ×2 (19:33→20:22)
--- NOTE | 2019-05-13 19:41 | DI.US.S_ITS ---
PROCEDURE: US PELVIC COMPLETE INDICATIONS: RIGHT PELVIC PAIN TECHNIQUE: Real-time scanning was performed of the pelvic organs, with image documentation. Additional endovaginal scanning was necessary due to incomplete visualization of the adnexal and endometrial structures by transabdominal scanning. COMPARISON: [facility], CT, CT ABDOMEN PELVIS W CON, 05/13/2019, 21:15. [facility], US, US PELVIC COMPLETE, 05/09/2019, 18:12. FINDINGS: Transabdominal scanning: Limited scanning through the kidneys shows no hydronephrosis. No pathologic free abdominal or pelvic fluid. Endovaginal scanning: Uterus: Uterus has been removed. Ovaries: Ovaries are nonvisualized. Miscellaneous: Mild fluid is noted present within the mid pelvis and right adnexal region. IMPRESSION: 1. Nonvisualization of the ovaries. 2. Mild free fluid within the lower pelvis as well as the right adnexal region. Dictated by: Anne Khan M.D. on 05/13/2019 at 21:37 Approved by: Anne Khan M.D. on 05/13/2019 at 21:41
[2019-05-13] MEDS: HYDROMORPHONE 0.5 MG INJ IV ×2 (19:51→20:28)
[2019-05-13 19:52] VITALS: BP 117/61; PULSE 56; RESP 16; O2SAT 98
[2019-05-13 20:00] VITALS: BP 122/59; PULSE 55; RESP 18; O2SAT 96
--- NOTE | 2019-05-13 21:05 | DI.CT.S_ITS ---
PROCEDURE: CT ABDOMEN PELVIS W CON INDICATIONS: severe abdominal pain, sent by PCP for repeat TECHNIQUE: After the administration of intravenous contrast, 5 mm thick sections acquired from the diaphragm to the symphysis. 5 mm coronal and sagittal reformats were acquired. For radiation dose reduction, the following was used: automated exposure control, adjustment of mA and/or kV according to patient size. COMPARISON: [facility], US, US PELVIC COMPLETE, 05/13/2019, 20:39. [facility], CT, CT ABDOMEN PELVIS W CON, 05/09/2019, 18:51. FINDINGS: Image quality: Excellent. ABDOMEN: Lung bases: Lung bases are clear. Heart size is normal. Solid organs: Liver is steatosis.. Gallbladder is not visualized. Biliary system is non dilated. Pancreas enhances normally. Spleen is normal in size and enhancement. No adrenal nodules. Kidneys demonstrate normal size and enhancement, without hydronephrosis. Punctate low attenuation lower pole renal foci too small to definitively characterize likely cysts. These are unchanged. Peritoneum and bowel: Bowel loops demonstrate normal wall thickness and caliber. No free fluid or air. Appendix is unremarkable. Minimal scattered diverticula are present. Nodes and vessels: No retroperitoneal or mesenteric adenopathy by size criteria. Aorta and inferior vena cava are normal in size. Miscellaneous: No ventral hernias. PELVIS: Genitourinary: Bladder wall thickness is normal. Miscellaneous: No inguinal hernias or adenopathy. Bones: No suspicious bony lesions. No vertebral body compression fractures. IMPRESSION: 1. Stable interval exam without visualized acute abdominal or pelvic process. 2. Diverticulosis. Dictated by: Anne Khan M.D. on 05/13/2019 at 21:44 Approved by: Anne Khan M.D. on 05/13/2019 at 21:47
[2019-05-13] MEDS: HYDROMORPHONE 1 MG INJ IV (21:11)
[2019-05-13 21:12] VITALS: BP 141/76; PULSE 68; O2SAT 96
[2019-05-13 22:07] LABS: RBC Urine 0-1/HPF (0-5/HPF); Squamous Epithelial Cell Urine 1-5 /HPF (0-5/HPF); WBC Urine 1-5/HPF (0-5/HPF)
[2019-05-13 22:08] LABS: Amorphous Sediment Urine 1+; Bacteria Urine Few (2-10); Culture Indicated Urine Specimen Cultured
[2019-05-13 22:14] VITALS: BP 122/52; PULSE 85; RESP 18; O2SAT 95
[2019-05-13 22:55] VITALS: BP 122/52; PULSE 63; O2SAT 96
--- NOTE | 2019-05-13 22:56 | PC.NURSE ---
Pt c/o 07/[address] Lawrence notified. No knew orders at this time. Pt notified of waiting for pelvic exam
[2019-05-13] MEDS: KETOROLAC 60 MG/2 ML VIAL 15 MG IV (23:15)
--- NOTE | 2019-05-13 23:30 | ED_ITS ---
HPI - Abdominal Pain General Chief Complaint: Abdominal Pain Stated Complaint: RIGHT SIDE PAIN Time Seen by Provider: 05/13/19 18:50 Source: patient and family Mode of arrival: ambulatory Limitations: no limitations History of Present Illness HPI narrative: 43-year-old female nonsmoker presents with family in the chief complaint of worsening pelvic and right lower quadrant pain over the past few days. She was initially seen in our emergency department a few days ago with right lower quadrant pain and concerns for appendicitis. She had some nausea and decreased appetite along with this pain and urinary complaints including dysuria, urgency and frequency. She had a very thorough physical examination and lab workup including ultrasound and CT. In the end she was diagnosed with a urinary tract infection and the possibility of colitis, and was placed on Cipro. She took the medications as directed and when her symptoms started worsening yesterday she went to her primary care provider's office. She started becoming increasingly nauseated and had a temporizing to 100? F. She states her pain is worse with motion and improves with rest. She denies vomiting but feels quite nauseated. She denies any vaginal bleeding but states that she has had a small amount of vaginal discharge that she had a bladder sling a few months ago. She has been using Premarin cream to help. complaint: abdominal pain Onset (ago): day(s) Pain Consistency: constant Location: RLQ Severity: severe Quality: cramping Radiation: none Migration to: no migration Relieving factors: rest Exacerbating factors: movement Associated symptoms: nausea Related Data Home Medications Medication Instructions Recorded Confirmed fluoxetine 40 mg PO DAILY 05/09/19 05/14/19 gabapentin 900 mg PO TID 05/09/19 05/14/19 levothyroxine 75 mcg PO DAILY 05/09/19 05/14/19 multivitamin 1 tab PO DAILY 05/09/19 05/14/19 tizanidine 4 mg PO BID 05/09/19 05/14/19 Previous Rx's Medication Instructions Recorded ciprofloxacin HCl 500 mg PO BID #20 tab 05/09/19 hydrocodone-acetaminophen [[place]] 1 tab PO Q6H PRN #7 tab 05/09/19 ondansetron HCl [Zofran] 4 mg PO Q6H PRN #5 tab 05/09/19 Allergies Allergy/AdvReac Type Severity Reaction Status Date / Time No Known Drug Allergies Allergy Verified 05/13/19 18:54 Review of Systems Constitutional Denies chills, Denies fever(s), Denies lethargy and Denies weakness Eyes Denies change in vision, Denies eye discharge, Denies irritation and Denies loss of vision ENT Ears, Nose, Mouth, and Throat: Denies change in voice, Denies neck pain and Denies sore throat Cardiovascular Denies chest pain, Denies irregular heart rhythm, Denies lightheadedness, Denies palpitations, Denies dyspnea, Denies dyspnea on exertion and Denies orthopnea Respiratory Denies cough, Denies dyspnea, Denies dyspnea on exertion and Denies wheezing Gastrointestinal Gastrointestinal: Reports abdominal pain, Denies change in bowel habits, Denies diarrhea, Reports nausea and Denies vomiting Genitourinary Denies hematuria, Reports pelvic pain, Denies flank pain, Denies urinary incontinence, Denies urinary urgency and Reports vaginal discharge Musculoskeletal Denies neck pain Integumentary/Breasts Denies pruritus, Denies erythema, Denies rash and Denies wounds Neurologic Denies confusion, Denies loss of vision and Denies weakness Psychiatric Denies anxiety, Denies confusion, Denies depression, Denies homicidal ideation and Denies suicidal ideation Endocrine Denies palpitations Hematologic/Lymphatic Denies easy bruising Allergic/Immunologic Denies wheezing PFSH Medical History Bladder prolapse, female, acquired (Chronic) History of renal calculi (Resolved) Surgical History Status post cholecystectomy (Resolved) Status post hysterectomy (Resolved) Social History (Updated 05/09/19 @ 17:28 by Yaneli Polanco DO) household members: spouse Smoking Status: Former smoker alcohol intake: current substance use type: marijuana Social History household members: spouse Smoking Status: Former smoker alcohol intake: current substance use type: marijuana Exam Narrative Exam Narrative: GENERAL: [43] year old patient appears stated age. Well- nourished, well-developed patient, in severe distress, obviously in significant pain, rubbing her lower abdomen, tearful, holding an emesis bag HEAD: Atraumatic. Normocephalic. EYES: Pupils equal round and reactive. Extraocular motions intact. No scleral icterus. No injection or drainage. ENT: Nose without bleeding, purulent drainage. Throat without erythema, tonsillar hypertrophy or exudate. Airway patent. NECK: Trachea midline. Non tender CARDIOVASCULAR: Regular rate and rhythm without murmurs, gallops, or rubs. RESPIRATORY: Clear to auscultation. Breath sounds equal bilaterally. No wheezes, rales, or rhonchi. GASTROINTESTINAL: Abdomen soft, tender in the right lower quadrant, nondistended. PELVIC: mild yellowish discharge from vaginal cuff with area of erythematous tissue EXTREMITIES: No edema or joint tenderness. BACK: Nontender without deformity or crepitance. No flank tenderness. NEURO: AOx3. SKIN: No rash or erythema of visible areas Initial Vital Signs Initial Vital Signs: Vital Signs Temperature 99.4 F 05/13/19 18:51 Pulse Rate 81 05/13/19 18:51 Respiratory Rate 18 05/13/19 18:51 Blood Pressure 113/63 05/13/19 18:51 Pulse Oximetry 100 05/13/19 18:51 Course Orders Ordered: ED Orders 05/13/19 21:45 Urine Chlamydia Gonorrhea PCR Stat Urine Culture Stat Urine Microscopic Stat 05/13/19 23:05 Genital Culture Stat JUANCARLOS Prep Stat Sodium Chloride (Normal Saline 0.9%) 1,000 mls @ 125 mls/hr IV CONT NAFISA Last Admin: 05/14/19 01:15 Dose: 125 mls/hr Morphine Sulfate (Morphine) 2 mg IV Q4HR PRN PRN Reason: Pain, Severe (7-10) Last Admin: 05/14/19 05:03 Dose: 2 mg Admin: 05/14/19 01:16 Dose: 2 mg Ondansetron HCl (Zofran) 4 mg IV Q4HR PRN PRN Reason: Nausea And Vomiting Last Admin: 05/14/19 01:32 Dose: 4 mg Sodium Chloride (Normal Saline 0.9% Flush) 10 ml IV PRN PRN PRN Reason: Flush Discontinued Medications Hydromorphone HCl (Dilaudid) 0.5 mg IV NOW ONE Stop: 05/13/19 19:43 Last Admin: 05/13/19 19:51 Dose: 0.5 mg Hydromorphone HCl (Dilaudid) 0.5 mg IV NOW ONE Stop: 05/13/19 20:26 Last Admin: 05/13/19 20:28 Dose: 0.5 mg Hydromorphone HCl (Dilaudid) 1 mg IV NOW ONE Stop: 05/13/19 21:05 Last Admin: 05/13/19 21:11 Dose: 1 mg Hydromorphone HCl (Dilaudid) 1 mg IV NOW ONE Stop: 05/13/19 23:54 Last Admin: 05/13/19 23:57 Dose: 1 mg Ketorolac Tromethamine (Toradol) 15 mg IV NOW ONE Stop: 05/13/19 23:08 Last Admin: 05/13/19 23:15 Dose: 15 mg Ondansetron HCl (Zofran) 4 mg IV NOW ONE Stop: 05/13/19 18:55 Last Admin: 05/13/19 19:33 Dose: 4 mg Ondansetron HCl (Zofran) 4 mg IV NOW ONE Stop: 05/13/19 20:16 Last Admin: 05/13/19 20:22 Dose: 4 mg Consultations Consultation #1: call to Dr. Bustos whom is happy to have on her service Vital Signs - 8 hr 05/13/19 22:55 05/14/19 00:00 05/14/19 00:27 Temperature 98.5 F Pulse Rate 63 54 L 57 L Respiratory Rate 18 Blood Pressure 133/66 Blood Pressure [Right Arm] 122/52 L 113/58 L Pulse Oximetry 96 96 97 05/14/19 04:40 Temperature 98.6 F Pulse Rate 57 L Respiratory Rate 18 Blood Pressure 113/70 Blood Pressure [Right Arm] Pulse Oximetry MDM - Abdominal Pain Lab Data Result diagrams: 05/13/19 19:00 05/13/19 19:00 Lab Results 05/13/19 05/13/19 05/13/19 Range/Units 19:00 19:00 19:00 WBC 10.2 (4.5-11.0) X10^3/uL RBC 4.25 (4.0-5.2) X10^6/uL Hgb 13.0 (12.0-16.0) g/dL Hct 38.8 (36-46) % MCV 91.4 (80-100) fL MCH 30.6 (26-34) PG MCHC 33.5 (30-36) % RDW 13.9 (11.6-14.8) % Plt Count 207 (150-400) X10^3/uL Neut % (Auto) 72.6 (50-75) % Lymph % (Auto) 19.3 L (25-40) % [place] % (Auto) 5.7 (3-14) % Eos % (Auto) 2.0 (2-4) % Baso % (Auto) 0.4 (0-2) % Neut # (Auto) 7400 H (3923-8774) /uL Lymph # (Auto) 2000 (3151-9833) /uL [place] # (Auto) 600 (0-900) /uL Eos # (Auto) 200 (0-450) /uL Baso # (Auto) 0 (0-100) /uL PT 10.9 (10.1-12.7) SECONDS INR 1.0 (0.9-1.3) APTT 31 (26.4-36.2) SECONDS Sodium 141 (137-145) mmol/L Potassium 3.7 (3.4-5.1) mmol/L Chloride 104 (98-107) mmol/L Carbon Dioxide 26 (22-32) mmol/L BUN 11 (7-17) mg/dL Creatinine 0.90 (0.52-1.04) mg/dL Estimated GFR > 60.0 (>60) mL/min BUN/Creatinine Ratio 12.2 (6-22) Glucose 112 H (70-100) mg/dL Calcium 10.0 (8.4-10.2) mg/dL Total Bilirubin 0.6 (0.2-1.3) mg/dL AST 27 (14-36) IU/L ALT 19 (9-52) IU/L Alkaline Phosphatase 71 (38-126) U/L Total Protein 7.9 (6.3-8.2) g/dL Albumin 4.9 (3.5-5.0) g/dL Globulin 3.0 (1.7-4.1) g/dL Albumin/Globulin Ratio 1.6 (1.0-2.8) Lipase 34 (23-300) U/L Urine RBC (0-5/HPF) Urine WBC (0-5/HPF) Ur Squamous Epith Cells (0-5/HPF) Amorphous Sediment Urine Bacteria (None) Ur Culture Indicated? Ur Chlamydia DNA (PCR) N gonorrhoeae DNA (PCR) 05/13/19 05/13/19 Range/Units 21:45 21:45 WBC (4.5-11.0) X10^3/uL RBC (4.0-5.2) X10^6/uL Hgb (12.0-16.0) g/dL Hct (36-46) % MCV (80-100) fL MCH (26-34) PG MCHC (30-36) % RDW (11.6-14.8) % Plt Count (150-400) X10^3/uL Neut % (Auto) (50-75) % Lymph % (Auto) (25-40) % [place] % (Auto) (3-14) % Eos % (Auto) (2-4) % Baso % (Auto) (0-2) % Neut # (Auto) (3283-3781) /uL Lymph # (Auto) (2968-5205) /uL [place] # (Auto) (0-900) /uL Eos # (Auto) (0-450) /uL Baso # (Auto) (0-100) /uL PT (10.1-12.7) SECONDS INR (0.9-1.3) APTT (26.4-36.2) SECONDS Sodium (137-145) mmol/L Potassium (3.4-5.1) mmol/L Chloride (98-107) mmol/L Carbon Dioxide (22-32) mmol/L BUN (7-17) mg/dL Creatinine (0.52-1.04) mg/dL Estimated GFR (>60) mL/min BUN/Creatinine Ratio (6-22) Glucose (70-100) mg/dL Calcium (8.4-10.2) mg/dL Total Bilirubin (0.2-1.3) mg/dL AST (14-36) IU/L ALT (9-52) IU/L Alkaline Phosphatase (38-126) U/L Total Protein (6.3-8.2) g/dL Albumin (3.5-5.0) g/dL Globulin (1.7-4.1) g/dL Albumin/Globulin Ratio (1.0-2.8) Lipase (23-300) U/L Urine RBC 0-1/hpf (0-5/HPF) Urine WBC 1-5/hpf (0-5/HPF) Ur Squamous Epith Cells 1-5 /hpf (0-5/HPF) Amorphous Sediment 1+ Urine Bacteria Few (2-10) H (None) Ur Culture Indicated? Specimen cultured Ur Chlamydia DNA (PCR) Not detected N gonorrhoeae DNA (PCR) Not detected Point of care testing: Urine Dip Bedside Urine Glucose Negative Bedside Urine Bilirubin - Negative Bedside Urine Ketone - Negative Urine Specific [place] 1.010 Bedside Urine Occult Blood +/- Bedside Urine pH 7.0 Bedside Urine Protein - Negative Bedside Urine Urobilinogen - Negative Bedside Urine Nitrite - Negative Bedside Urine Leukocytes + 70 Esterase Imaging Data US - abdomen: Radiologist's impression: [address] [address] Ultrasound Report Signed Patient: Sarah Floyd [facility]#: [id number] : 1975Acct:[id number] Age/Sex: 43 / FDate of Service: 05/13/19 Loc: ED Accession Number: [id number] Procedure: US pelvic complete Ordering Provider: Donis Lawrence D.O. PROCEDURE: US PELVIC COMPLETE INDICATIONS: RIGHT PELVIC PAIN TECHNIQUE: Real-time scanning was performed of the pelvic organs, with image documentation. Additional endovaginal scanning was necessary due to incomplete visualization of the adnexal and endometrial structures by transabdominal scanning. COMPARISON: [facility], CT, CT ABDOMEN PELVIS W CON, 05/13/2019, 21:15. [facility], US, US PELVIC COMPLETE, 05/09/2019, 18:12. FINDINGS: Transabdominal scanning: Limited scanning through the kidneys shows no hydronephrosis. No pathologic free abdominal or pelvic fluid. Endovaginal scanning: Uterus: Uterus has been removed. Ovaries: Ovaries are nonvisualized. Miscellaneous: Mild fluid is noted present within the mid pelvis and right adnexal region. IMPRESSION: 1. Nonvisualization of the ovaries. 2. Mild free fluid within the lower pelvis as well as the right adnexal region. Dictated by: Anne Khan M.D. on 05/13/2019 at 21:37 Approved by: Anne Khan M.D. on 05/13/2019 at 21:41 CT scan - abdomen: Radiologist's impression: [address] [address] [address] Scan Report Signed Patient: Sarah Floyd [facility]#: [id number] : 1975Acct:[id number] Age/Sex: 43 / FDate of Service: 05/13/19 Loc: ED Accession Number: [id number] Procedure: CT abdomen pelvis w con Ordering Provider: Donis Lawrence D.O. PROCEDURE: CT ABDOMEN PELVIS W CON INDICATIONS: severe abdominal pain, sent by PCP for repeat TECHNIQUE: After the administration of intravenous contrast, 5 mm thick sections acquired from the diaphragm to the symphysis. 5 mm coronal and sagittal reformats were acquired. For radiation dose reduction, the following was used: automated exposure control, adjustment of mA and/or kV according to patient size. COMPARISON: [facility], US, US PELVIC COMPLETE, 05/13/2019, 20:39. [facility], CT, CT ABDOMEN PELVIS W CON, 05/09/2019, 18:51. FINDINGS: Image quality: Excellent. ABDOMEN: Lung bases: Lung bases are clear. Heart size is normal. Solid organs: Liver is steatosis.. Gallbladder is not visualized. Biliary system is non dilated. Pancreas enhances normally. Spleen is normal in size and enhancement. No adrenal nodules. Kidneys demonstrate normal size and enhancement, without hydronephrosis. Punctate low attenuation lower pole renal foci too small to definitively characterize likely cysts. These are unchanged. Peritoneum and bowel: Bowel loops demonstrate normal wall thickness and caliber. No free fluid or air. Appendix is unremarkable. Minimal scattered diverticula are present. Nodes and vessels: No retroperitoneal or mesenteric adenopathy by size criteria. Aorta and inferior vena cava are normal in size. Miscellaneous: No ventral hernias. PELVIS: Genitourinary: Bladder wall thickness is normal. Miscellaneous: No inguinal hernias or adenopathy. Bones: No suspicious bony lesions. No vertebral body compression fractures. IMPRESSION: 1. Stable interval exam without visualized acute abdominal or pelvic process. 2. Diverticulosis. MDM Narrative Medical decision making narrative: 43-year-old female returns for evaluation of worsening lower abdominal pain. Repeat imaging demonstrates no appendicitis or other obvious source of pain. Labs are unremarkable. Patient requires multiple doses of IV pain medication. She is unfit for discharge as her pain is not controlled and there is need for ongoing abdominal exams to further characterize her condition Discharge Plan Departure Patient Disposition: Admitted as Observation Clinical Impression: Pelvic pain Discharge Date/Time: 05/14/19 00:31 Interventions: ED Discharge Assessment Last Done: 05/14/19 00:13 Admit Date/Time: 05/13/19 23:37 Admit Provider: Surekha Bustos
[2019-05-13] MEDS: HYDROMORPHONE 0.5 MG INJ 1 MG IV (23:57)
[2019-05-14] VITALS (20 sets, daily range): BP systolic 89–137; BP diastolic 33–82; PULSE 51–107; RESP 16–26; TEMP 36.1–37.1; O2SAT 92–99; BMI 25.7
--- NOTE | 2019-05-14 | PATH_ITS ---
[facility] Accession Number: [id number] . 01 Material submitted: . appendix - APPENDIX . 02 Diagnosis: Appendix: Changes consistent with very early acute appendicitis. MRV/05/16/2019 . 02 Electronically signed: . Mike Yan MD, Pathologist NPI- [id number] . 01 Gross description: . Received in formalin, labeled appendix, is an intact appendix (length-6.8 cm, diameter-0.6 cm) with celis-frank smooth and shiny serosa and attached mesoappendix (up to 1.5 cm in depth). The resection margin is received stapled. The lumen contains brown solid soft material. The wall is up to 0.1 cm thick. No nodules, masses or lesions are identified. The resection margin is inked black. The appendix is serially sectioned and entirely submitted proximal to distal in cassettes A1-A3 with the tip bivalved and entirely submitted in cassette A4. ([id number]) /[facility] . 02 Microscopic: . Sections are of the appendix. The entire appendix has been embedded. In the distal portions of the appendix, there is acute inflammatory debris within the lumen and these acute inflammatory cells focally extend into the adjacent superficial appendiceal mucosa. In these areas, there is also very prominent lymphoid hyperplasia with large germinal centers with frequent mitotic figures and numerous tingible bodies. The changes are considered consistent with very early acute appendicitis. There is no evidence for neoplasm. . 02 Pathologist provided ICD-10: K35.80 . 02 CPT . 979004 Performed at: 01 [facility] [address] [place] [address], [place], [place] [id number] MD Irwin Candelario MD Phone: [phone] Performed at: 02 [facility] [place] [address] [place] [id number] MD Dayami Kapoor MD Phone: [phone]
[2019-05-14] MEDS: SODIUM CHLORIDE 0.9% 1,000 ML 125 ML IV ×2 (01:15→09:00)
[2019-05-14] MEDS: MORPHINE 2 MG/ML INJ IV ×3 (01:16→08:57)
[2019-05-14] MEDS: ONDANSETRON 4 MG/2 ML INJ IV ×5 (01:32→21:38)
--- NOTE | 2019-05-14 01:47 | PC.ADMIT ---
Addendum entered by Michael Stuart R.N. 05/14/19 02:06: Pt is still nauseated Zofran given at 0130 Addendum entered by Michael Stuart R.N. 05/14/19 02:02: Pt was NPO at 0000 Original Note: Safe handoff from ED. Pt arrived on floor at 0027. Pt arrived via wheelchair and ambulated to the bed. Pt has some lower right quadrant pain and nausea. Pt states that her pain is 8/10, medicated w/ morphine Q4. VSS except pulse is [place] in the 50's.Lung sounds clear bilaterally, pain upon palpitation of R quadrant and some guarding. Bowel sounds are hypoactive. Daughter is by the bedside and rooming in. Explained the use of call light. Bed is low and locked and pt has call light at hand. [address] Admission Note: The patient,Sarah Floyd,43 y/o, was given written information regarding hospital policies, unit procedures and contact persons. Patient's smoking status: Former smoker. Vital Signs - 8 hr 05/13/19 18:51 05/13/19 19:52 05/13/19 20:00 Temperature 99.4 F Pulse Rate 81 56 L 55 L Respiratory Rate 18 16 18 Blood Pressure 113/63 Blood Pressure [Right Arm] 117/61 122/59 L Pulse Oximetry 100 98 96 05/13/19 21:12 05/13/19 22:14 05/13/19 22:55 Temperature Pulse Rate 68 85 63 Respiratory Rate 18 Blood Pressure Blood Pressure [Right Arm] 141/76 H 122/52 L 122/52 L Pulse Oximetry 96 95 96 05/14/19 00:00 Temperature Pulse Rate 54 L Respiratory Rate Blood Pressure Blood Pressure [Right Arm] 113/58 L Pulse Oximetry 96
[2019-05-14 02:12] LABS: Urine N gonorrhoeae NOT DETECTED
[2019-05-14 02:15] LABS: Urine Chlamydia NOT DETECTED
--- NOTE | 2019-05-14 11:43 | PC.NURSE ---
DAY shift: Pt off unit per Dr Bustos instructions for 1145 appointment in office. Pt taken in WC by LING Reynolds. Pt accompanied by daughter. Pt still has nausea and pain but did not want the Zofran or Morphine because she feels it does not make anything better at this time.
--- NOTE | 2019-05-14 13:15 | PC.NURSE ---
DAY SHIFT: Pt remains off unit. Per Pt's daughter Mai the Pt is down in pre-op to try to figure things out. Mai has all Pt's person items (purse and cell phone and everything in purse).
--- NOTE | 2019-05-14 13:37 | P.CONS_ITS ---
History of Present Illness Date Patient Seen: 05/14/19 Time Patient Seen: 12:30 Chief complaint: RIGHT SIDE PAIN Reason for consult: RLQ pain Narrative: 43 yo woman HD2 admitted to [facility] service for R sided pelvic pain. PT is s/p vaginal histerectomy w/o oophorectomy presented with significant right lower quadrant pain. Pain began approximately 6 days ago was periumbilical and achy 5 days ago localized to the right lower quadrant and became much more severe there is associated nausea. She was seen in the emergency department where CT scan visualized the appendix and was not notable for inflammation or fat stranding in the area. Her UA had =10- 30 WBCs per high-power field, her urine culture ultimately was contaminated. She was started on ciprofloxacin and sent home. She did not improve. And re-presented yesterday to the hospital or repeat CT imaging again did not demonstrate dilated appendix -a my review of imaging there was small amount of free fluid within the right dependent pelvis. The appendix is not dilated there is no adjacent fat stranding and there is air within the tip of the appendix. Patient was admitted to the OBGYN service for pain control -she is status post bio prosthetic mesh placement within the pelvis -during the course of her workup there was some concern for synthetic mesh erosion -it is now clear however patient has never had synthetic mesh within her pelvis. Patient was carefully examined by [employer] which noted some granulation tissue at her vaginal cuff but no erosions into her vaginal mucosa. Patient's pain has been unchanged for the last day -still quite significant The patient has not eaten in days PFSH Medical History Bladder prolapse, female, acquired (Chronic) History of renal calculi (Resolved) Surgical History Status post cholecystectomy (Resolved) Status post hysterectomy (Resolved) Social History (Updated 05/09/19 @ 17:28 by Yaneli Polanco DO) household members: spouse Smoking Status: Former smoker alcohol intake: current substance use type: marijuana Social History household members: spouse Smoking Status: Former smoker alcohol intake: current substance use type: marijuana Meds Home Medications Medication Instructions Recorded Confirmed Type ciprofloxacin HCl 500 mg PO BID #20 tab 05/09/19 05/14/19 Rx fluoxetine 40 mg PO DAILY 05/09/19 05/14/19 History gabapentin 900 mg PO TID 05/09/19 05/14/19 History levothyroxine 75 mcg PO DAILY 05/09/19 05/14/19 History multivitamin 1 tab PO DAILY 05/09/19 05/14/19 History ondansetron HCl [Zofran] 4 mg PO Q6H PRN #5 tab 05/09/19 05/14/19 Rx tizanidine 4 mg PO BID 05/09/19 05/14/19 History Allergies Allergy/AdvReac Type Severity Reaction Status Date / Time No Known Drug Allergies Allergy Verified 05/14/19 13:40 Review of Systems Constitutional Constitutional: Denies fever(s) Eyes Eyes: Denies bulging eyes ENT Ears, Nose, Mouth, and Throat: No lip swelling Cardiovascular Cardiovascular: Denies generalize swelling Respiratory Respiratory: Denies stridor Gastrointestinal Gastrointestinal: Denies coffee ground emesis Musculoskeletal Musculoskeletal: Denies loss of height Integumentary/Breasts Skin/Breast: Denies wounds Neurologic Neurologic: Denies abnormal speech and Denies confusion Psychiatric Psychiatric: Denies confusion Endocrine Endocrine: Denies deepening of the voice Hematologic/Lymphatic Hematologic/Lymphatic: Denies lymphadenopathy Allergic/Immunologic Allergic/Immunologic: Denies lip swelling Exam Vital Signs (past 8 hours): - 05/14/19 07:53 05/14/19 11:28 05/14/19 13:25 Temperature 97.8 F 98.5 F 97.9 F Pulse Rate 53 L 51 L 55 L Respiratory Rate 16 18 16 Blood Pressure 130/77 137/73 126/65 Pulse Oximetry 97 99 99 Oxygen Delivery Method Room Air Const General: cooperative Orientation: alert [facility] Head: normal to inspection Nose: nares normal Mouth: oral mucosae normal and lip normal Eyes Eyelids: eyelids normal Conjunctivae: conjunctivae normal Sclera: sclerae normal Neck Neck: supple and other (No thyromegally) Chest Chest: other (LCTAB , regular respiratory effort) Cardio Rhythm: regular rhythm Heart Sounds: S1 normal, S2 normal, no gallops, no murmurs and no rubs GI Other: Multiple hypertrophic scars from port site incisions for lap cholecystectomy, abdomen is nondistended, bowel sounds present, minimally tender to percussion in the right lower quadrant. Tender to palpation at McBurney's point, no rebound no reflexive guarding, notably tender however Skin General: no rashes or lesions noted Neuro General: alert and awake Psych Appearance: grossly normal Affect: normal affect Objective Labs Result Diagrams: 05/13/19 19:00 05/13/19 19:00 Labs: Laboratory Results - last 24 hr 05/13/19 05/13/19 05/13/19 19:00 19:00 19:00 WBC 10.2 RBC 4.25 Hgb 13.0 Hct 38.8 MCV 91.4 MCH 30.6 MCHC 33.5 RDW 13.9 Plt Count 207 Neut % (Auto) 72.6 Lymph % (Auto) 19.3 L [place] % (Auto) 5.7 Eos % (Auto) 2.0 Baso % (Auto) 0.4 Neut # (Auto) 7400 H Lymph # (Auto) 2000 [place] # (Auto) 600 Eos # (Auto) 200 Baso # (Auto) 0 PT 10.9 INR 1.0 APTT 31 Sodium 141 Potassium 3.7 Chloride 104 Carbon Dioxide 26 BUN 11 Creatinine 0.90 Estimated GFR > 60.0 BUN/Creatinine Ratio 12.2 Glucose 112 H Calcium 10.0 Total Bilirubin 0.6 AST 27 ALT 19 Alkaline Phosphatase 71 Total Protein 7.9 Albumin 4.9 Globulin 3.0 Albumin/Globulin Ratio 1.6 Lipase 34 Urine RBC Urine WBC Ur Squamous Epith Cells Amorphous Sediment Urine Bacteria Ur Culture Indicated? Ur Chlamydia DNA (PCR) N gonorrhoeae DNA (PCR) 05/13/19 05/13/19 21:45 21:45 WBC RBC Hgb Hct MCV MCH MCHC RDW Plt Count Neut % (Auto) Lymph % (Auto) [place] % (Auto) Eos % (Auto) Baso % (Auto) Neut # (Auto) Lymph # (Auto) [place] # (Auto) Eos # (Auto) Baso # (Auto) PT INR APTT Sodium Potassium Chloride Carbon Dioxide BUN Creatinine Estimated GFR BUN/Creatinine Ratio Glucose Calcium Total Bilirubin AST ALT Alkaline Phosphatase Total Protein Albumin Globulin Albumin/Globulin Ratio Lipase Urine RBC 0-1/hpf Urine WBC 1-5/hpf Ur Squamous Epith Cells 1-5 /hpf Amorphous Sediment 1+ Urine Bacteria Few (2-10) H Ur Culture Indicated? Specimen cultured Ur Chlamydia DNA (PCR) Not detected N gonorrhoeae DNA (PCR) Not detected Assessment & Plan Assessment & Plan narrative: 43-year-old female now with 3rd presentation to medical providers for evaluation of right lower quadrant pain -the length of her course as well as a normal appendix on CT scan yesterday would be highly atypical for acute appendicitis, however the patient has significant pain in the right lower quadrant with free fluid without free air on most recent CT scan. Given diagnostic uncertainty in conjunction with [facility] [employer] I think it is reasonable to do a diagnostic laparoscopy. In this way both adnexa could be evaluated ovarian cyst, ovarian torsion, endometriosis all possible causes. Though unlikely this could also be an unusual form of appendiceal pain such as fibrous obliteration of the appendix, Given this plan to proceed with plastics spreading machine operator to the operating room for diagnostic laparoscopy, exam under anesthesia. I discussed with patient that even if her appendix appeared normal and less there was clearly other pathology I would most likely remove it -in this way it would no longer be part of a diagnostic possible, I also discussed that there can be subtle appendicitis that is not obvious grossly. Plan: To operating room as above Patient consented
[2019-05-14] MEDS: LACTATED RINGERS 1,000 ML 42 ML IV (14:04)
[2019-05-14] MEDS: HYDROMORPHONE 2 MG INJ 0.25 MG IV (14:19)
[2019-05-14] MEDS: CEFTRIAXONE 2 GM/50 ML FROZ.PIGGY IV (14:30)
[2019-05-14] MEDS: metroNIDAZOLE 500 MG/100 ML PIGGYBACK 100 MG IV (14:35)
--- NOTE | 2019-05-14 15:09 | CM.DANOTE ---
DCP Brief Assessment Patient is a 43 year old female who was admitted on 05/13/19 for Right Side Pain. Pt has [facility] for insurance and her PCP is not listed. EMR was reviewed. Per MD, pt admitted with consult by Dr. Bustos to determine source of pain and Surgeon Consulted to determine if surgical procedure needed. Per RN, pt still off the floor and in pre-op waiting to determine if surgery will need to happen today and supportive Dtr has been bedside. Plan: SW to follow in the morning to determine if pt needed surgery and her d/c planning needs when she arrives back to the Acute Care floor. JASMYNE Frazier
--- NOTE | 2019-05-14 15:23 | SUR.OPER ---
Lithotomy on padded OR bed, head on pillow, arms padded and tucked at sides. Legs secured in padded yellow fins stirrups.
[2019-05-14] MEDS: BUPIVACAINE 0.5% W/ EPI (PF) VIAL 30 ML INJ (15:39)
[2019-05-14] MEDS: SILVER NITRATE STICK 2 EACH TOP (15:40)
[2019-05-14] MEDS: SODIUM CHLORIDE 0.9% 9 ML, TRIAMCINOLONE 10 MG INJ (15:51)
[2019-05-14] MEDS: fentaNYL 100 MCG/2 ML INJ 50 MCG IV (16:44)
[2019-05-14] MEDS: METOCLOPRAMIDE 10 MG/2 ML INJ IV ×2 (16:54→22:25)
[2019-05-14] MEDS: HYDROMORPHONE 2 MG INJ 0.5 MG IV ×8 (17:04→17:55)
--- NOTE | 2019-05-14 18:58 | PM.OP.1 ---
Operative Date/Time/Diagnoses Date of procedure: 05/14/19 Time of procedure: 13:30 Pre-op diagnosis: Pelvic pain Post-op diagnosis: other (Right ovarian cyst, benign appearing serous fluid within the pelvis) Procedure & Clinicians Procedure: Diagnostic laparoscopy Laparoscopic appendectomy Fenestration of right ovarian simple cyst Pelvic washout Same procedure as scheduled: Yes Indications: 43-year-old woman presented to the emergency department with significant right lower quadrant pain this pain was persistent for 6 days diagnostically she did not appear to have acute appendicitis with a nondilated appendix visualized on CT scan without adjacent fat stranding. However patient had been started on ciprofloxacin several days or earlier and in addition had notable tenderness at McBurney's point with a history of periumbilical pain localizing to that area. In addition there was free fluid identified on CT scan within the right pelvis. Due to the diagnostic uncertainty decision was made to take patient to the operating room. Surgeon: Shaka Bejarano Color Print Inspector: Surekha Bustos Anesthesia Type: General Operative Notes Findings: Simple right ovarian cyst Fibrous scarring of appendix Clear free fluid within the pelvis on the right side Left adnexa appeared healthy Closure Type: primary Specimen(s): other (Appendix) Estimated Blood Loss (mL): 10 Procedure in detail: Patient was brought to the operating room she was intubated without incident she was prepped and draped in usual sterile fashion a time-out was completed Prior to my portion of the case radar engineering teacher performed a exam under anesthesia with identification and chemical cauterization of vaginal granulation tissue, a cystoscopy was also performed without lesions of the bladder mucosa Next we proceeded to perform the diagnostic laparoscopy. The abdomen was entered via Snider cutdown technique. A small vertically oriented incision was carried through the superior umbilical crown the subcutaneous tissues were spread of the linea alba was identified and elevated with a April clamp. Two retention sutures were placed on either side of it clamp was removed the sutures were brought taut in the linea alba was split with a scalpel. Entry into the peritoneum was facilitated via blunt clamp. An S retractor confirmed intra-abdominal placement was used to guide placement of the Snider trocar. The abdomen was insufflated without incident. Two 5 mm ports were then placed 1 the left lower quadrant and the other in the suprapubic region being careful to avoid the dome of the bladder. At this point proceeded to identify the right colon for I traced this inferiorly to identify the cecum the cecum was rotated laterally exposing the appendix which did not affect appear acutely inflamed however there was some fibrous scar tissue adjacent to it. I then proceeded to identify the terminal ileum and run the bowel from distal to proximal of for greater than 2 ft no diverticula of the small intestine were identified. Inspecting the pelvis there was clear yellow free fluid within it the sigmoid colon itself appeared healthy without active inflammation and no significant diverticular disease. There was almost no adhesions from the patient's previous hysterectomy. The right adnexa was then carefully inspected there was a moderately-sized simple cyst which was fenestrated releasing clear fluid. Some area of mild bleeding at the area of fenestration was cauterized without incident. The left ovary was then inspected and found to be normal. I then inspected the left pericolic gutter as well as the distal aspect of the left colon and found no evidence of colitis or active inflammation. Given the fibrous changes adjacent to the appendix decision was made to remove it. Mid appendix was grasped and gently retracted small window was created using a Danielle grasper and the mesoappendix at the level of the appendiceal cecal junction. A 3.5 mm blue load stapler was then used to divide the appendix taking with a small cuff perhaps 2 mm of cecum. Staple line was noted to be robust and hemostatic. A vascular 2.5 mm white load was then used to divide the mesoappendix -this required 2 firings of the stapler due to the length of the appendix. The staple line was also noted to be hemostatic. The area was then subsequently washed and suctioned dry. The site of cyst fenestration was inspected and found to be hemostatic At this point the cecum was rotated back into the anatomic position. The appendix was placed in Endo-Catch bag and later removed from the abdomen via the umbilical port site. 5 mm ports were then withdrawn under direct visualization the abdomen was deinsufflated than the Snider port was removed and with the appendix in the Endo-Catch bag. Fascia was then closed using a [id number] suture as well as tying together the [address] Bustos graciously completed the place was closing the skin in also excised patient's hypertrophic scars Please see separately dictated note by Dr. Bustos for further details Complications: none Condition: stable Disposition: PACU Plan for aftercare: To floor
[2019-05-14] MEDS: HYDROMORPHONE 2 MG TABLET PO (21:25)
[2019-05-14] MEDS: LACTATED RINGERS 1,000 ML 100 ML IV (21:25)
[2019-05-14] MEDS: DOCUSATE 250 MG CAPSULE PO (21:25)
[2019-05-14] MEDS: GABAPENTIN 300 MG CAPSULE 900 MG PO (21:45)
[2019-05-14] MEDS: TIZANIDINE 4 MG TABLET PO (21:45)
[2019-05-15] MEDS: KETOROLAC 30 MG/ML VIAL IV ×2 (00:26→05:59)
[2019-05-15 00:30] VITALS: BP 114/67; PULSE 61; RESP 20; TEMP 36.9; O2SAT 94
[2019-05-15 04:58] VITALS: BP 97/60; PULSE 56; RESP 16; TEMP 36.8; O2SAT 97
[2019-05-15 05:32] LABS: Add Manual Diff / Slide Review NO; Basophils Absolute Auto 0 /uL (0-100); Basophils Percent Auto 0.1 % (0-2); Eosinophils Absolute Auto 100 /uL (0-450); Eosinophils Percent Auto 0.8 % (2-4); Hematocrit 36.3 % (36-46); Lymphocytes Absolute Auto 900 /uL (1100-4500); Lymphocytes Percent Auto 7.4 % (25-40); Mean Corpuscular HGB Conc 33.1 % (30-36); Mean Corpuscular Hemoglobin 30.6 PG (26-34); Mean Corpuscular Volume 92.6 fL (80-100); Monocytes Absolute Auto 700 /uL (0-900); Monocytes Percent Auto 5.4 % (3-14); Neutrophils Absolute Auto 10700 /uL (1500-7000); Neutrophils Percent Auto 86.3 % (50-75); Platelet Count 185 X10^3/uL (150-400); Red Blood Cell Count 3.92 X10^6/uL (4.0-5.2); Red Cell Distribution Width 13.8 % (11.6-14.8); White Blood Cell Count 12.4 X10^3/uL (4.5-11.0)
[2019-05-15] MEDS: LACTATED RINGERS 1,000 ML 100 ML IV (06:04)
[2019-05-15 07:43] VITALS: BP 111/77; PULSE 52; RESP 18; TEMP 37.1; O2SAT 97
[2019-05-15] MEDS: LEVOTHYROXINE 75 MCG TABLET PO (09:45)
[2019-05-15] MEDS: HYDROMORPHONE 2 MG TABLET PO (09:45)
[2019-05-15] MEDS: GABAPENTIN 300 MG CAPSULE 900 MG PO (09:45)
[2019-05-15] MEDS: DOCUSATE 250 MG CAPSULE PO (09:45)
[2019-05-15] MEDS: TIZANIDINE 4 MG TABLET PO (09:45)
--- NOTE | 2019-05-15 09:57 | PC.NURSE ---
Discharge pt states pain controlled with PO dilaudid. She received a Rx for this at d/c. d/c instructions provided to pt. Aware to contact MD with any additional questions or concerns as well as for f/u apt on 05/29. pt states she took all belongings with her. PIV removed prior to d/c. lap sites mostly CDI with gauze, tegaderm and steri strips. One lap site (umbilical) with scant bloody drainage but not saturated. Pt left in w/c with [employer] escort.
--- NOTE | 2019-05-15 10:02 | CM.DPC ---
DCP Discharge Home Per Surgeon, pt is medically stable after appy surgery to d/c home with supportive family and no identified barriers to discharge. Per RN, pt has already left during Multidisciplinary rounds before SW could complete bedside assessment. Plan: Patient discharged home via family POV this morning and no SW needs at this time. JASMYNE Frazier
--- NOTE | 2019-05-15 12:32 | PC.NURSE ---
Spoke with Dr He, he would like pt to f/u with him as well in 2 weeks. Spoke with pt's mother Trinh on the phone and informed her of pt's apt with Dr He on 05/30/19 at 1045am. LM on voicemail of pt as well, per mother she was sleeping.
--- NOTE | 2019-05-28 20:35 | P.OP_ITS ---
Operative Date/Time/Diagnoses Date of procedure: 05/14/19 Time of procedure: 16:00 Pre-op diagnosis: RLQ pain Right ovarian cyst Post-op diagnosis: same Procedure: Procedures Operation Date: 05/14/19 14:00 Actual Procedures Side Surgeon sanket BERNARD Vaginal, Cystoscopy, Laparoscopic Appendectomy, fenestration of right ovarian cyst, excision of abdominal keloid scars, cauterization of vaginal granulation Surekha Bustos MD Indications: Right lower quadrant pain Right ovarian Surgeon: Shaka Bejarano [employer] Crewman: Surekha Bustos Anesthesia Type: General Operative Notes Findings: Right ovarian cyst measuring 1.5 cm Normal liver Normal left tube and ovary Normal uterus Five hypertrophic scars from previous laparoscopy Closure Type: primary Specimen(s): other (Appendix) Applied: catheter Procedure in detail: The previous appendectomy and right ovarian cyst excision were dictated by Dr. Bejarano. Closure: The hypertrophic skin incisions were excised in an elliptical fashion. A vertical 1 just above the umbilicus, 3 right upper quadrant scars, and 1 in fraumbilical scar. These incisions, in addition to the new laparoscopy incisions, were closed with 4 0 Biosyn in a subcuticular fashion. Steri-Strips, 2 x 2, and op site were placed. Complications: none Post-operative Condition: stable Disposition: PACU Plan for aftercare: To acute care after recovery
--- NOTE | 2019-05-28 20:47 | P.DS_ITS ---
History of Present Illness Date Patient Seen: 05/15/19 Time Patient Seen: 07:30 Chief complaint: RIGHT SIDE PAIN Narrative: Patient is a 43-year-old man who was admitted on 05/13/2019 for per sistent right lower quadrant pain with nausea and vomiting. She had a small right ovarian cyst measuring 1.5 cm on ultrasound. She had clear signs of appendicitis. She was taken to the operating room and underwent a laparoscopic appendectomy as well as excision of right ovarian cyst. Her postoperative course was unremarkable and on postop day # 1 she was tolerating a diet, her pain was improved, no nausea or vomiting. She was discharged home. Discharge Providers Date of admission: 05/13/19 23:37 Discharge Date: 05/15/19 Consults: General surgery Dr. Bejarano Discharge provider: Surekha Bustos MD Summary Discharge Diagnosis: Right lower quadrant pain Persistent nausea and vomiting Right ovarian cyst Suspected appendicitis Hospital Course: Patient was admitted from the emergency department on 05/13/2019 with her 3rd visit and persistent right lower quadrant pain with nausea and vomiting. She was admitted for observation. A consultation was obtained with General surgery. A decision was made to proceed with diagnostic laparoscopy with excision of right ovarian cyst and appendectomy. She underwent these procedures without complication. Her postoperative course was unremarkable and she was discharged home on 05/15/2019. Status at Discharge Cognitive/behavioral status at discharge: oriented Functional status at discharge: independent ambulation Overall status at discharge: patient is progressing back to baseline Time Spent with Patient Less than 30 minutes Exam Vital Signs (past 8 hours): Oxygen Delivery Method Room Air Oxygen Flow Rate 0 Narrative Exam Narrative: Generally: Patient is sitting up in bed, no acute distress Lungs: Clear to auscultation bilaterally Cardiovascular: Regular rate and rhythm Abdomen: Soft, good bowel sounds Incisions: Clean dry and intact with op site Extremities: Negative Homans, no edema Objective Labs Result Diagrams: 05/15/19 04:54 05/13/19 19:00 Discharge Plan Discharge Plan Patient Disposition: Home Discharge comment: Call with fever, chills or redness or drainage around the incisions Discharge Med Rec/Prescriptions Prescriptions: New hydromorphone [Dilaudid] 2 mg tablet 2 mg PO Q4H PRN (Reason: pain) Qty: 20 RF: 0 Continued fluoxetine 40 mg capsule 40 mg PO DAILY RF: 0 tizanidine 2 mg tablet 4 mg PO BID RF: 0 levothyroxine 75 mcg tablet 75 mcg PO DAILY RF: 0 gabapentin 300 mg capsule 900 mg PO TID RF: 0 multivitamin Tablet 1 tab PO DAILY RF: 0 Discontinued ciprofloxacin HCl 500 mg tablet 500 mg PO BID Qty: 20 RF: 0 ondansetron HCl [Zofran] 4 mg tablet 4 mg PO Q6H PRN (Reason: nausea and vomiting) Qty: 5 RF: 0 Follow up/Referrals: Surekha Bustos MD [Physician] - 2 Weeks (*appt:05/29 @ 3:[address] bustos [phone]) Provider Discharge Instructions Diet: Regular Skin/Wound/Dressing Care Report to your healthcare provider any signs of infection, such as:: chills, fever, increased pain, unusual drainage and unusual redness Dressing: Remove outer plastic dressings and guaze tomorrow after a shower Visit Report/Discharge Packet Instructions: Ovarian Cyst, DI for an Appendectomy, DI for Ovarian Cyst Removal, Ovarian Cyst Removal -- Laparoscopic Surgery Stand Alone Forms: Surgery Discharge Discharge Data Attending Provider: Surekha Bustos Admit Date/Time: 05/13/19 23:37 Discharges patient from system. Discharge Date/Time: 05/15/19 09:55 Quality VTE Deep Vein Thrombosis/Pulmonary Embolism Present on Admission: No
== END 2019-05-15 09:55 | disposition home or self-care (01) ==
LOC: ED 23:36 → AC 23:37
PROVIDERS: Admitting Provider Obstetrics & Gynecology; Emergency Provider Emergency Medicine; Visit Provider Obstetrics & Gynecology
PROC: (CPT 49320; principal; 2019-05-14 14:00)
DX: K35.80 Unspecified acute appendicitis (principal); R10.9 Unspecified abdominal pain; L91.0 Hypertrophic scar; A58 Granuloma inguinale; N83.291 Other ovarian cyst, right side
CPT/HCPCS: 44970; 52000; 11406; 57061; 49322; 36415; 36591; 74177; 76830; 76856; 80053; 81003; 81015; 83690; 85025; 85610; 85730; 87070; 87077; 87086; 87205; 87220; 87491; 87591; 96361; 96374; 96375; 96376; 99284; G0378; J0696; J1170; J1885; J2250; J2270; J2405; J2704; J2765; J3010; J3301

== ENCOUNTER 2019-05-19 16:11 | Emergency (ER) | payer OTHER, SELFPAY ==
[2019-05-14 00:44] VITALS: BMI 25.7
[2019-05-19 16:17] VITALS: BP 115/72; PULSE 72; RESP 16; TEMP 36.8; O2SAT 97; BMI 26.4
[2019-05-19] MEDS: ONDANSETRON 4 MG/2 ML INJ IV (16:57)
[2019-05-19] MEDS: KETOROLAC 60 MG/2 ML VIAL 30 MG IV (16:57)
[2019-05-19] MEDS: SODIUM CHLORIDE 0.9% 1,000 ML 1000 ML IV (16:58)
[2019-05-19] MEDS: HYDROMORPHONE 1 MG INJ IV (16:58)
[2019-05-19 17:05] LABS: Add Manual Diff / Slide Review NO; Basophils Absolute Auto 0 /uL (0-100); Basophils Percent Auto 0.6 % (0-2); Eosinophils Absolute Auto 300 /uL (0-450); Eosinophils Percent Auto 3.6 % (2-4); Hematocrit 37.6 % (36-46); Hemoglobin 12.6 g/dL (12.0-16.0); Lymphocytes Absolute Auto 1200 /uL (1100-4500); Mean Corpuscular HGB Conc 33.6 % (30-36); Mean Corpuscular Hemoglobin 30.8 PG (26-34); Mean Corpuscular Volume 91.8 fL (80-100); Monocytes Absolute Auto 700 /uL (0-900); Monocytes Percent Auto 8.9 % (3-14); Neutrophils Absolute Auto 5700 /uL (1500-7000); Neutrophils Percent Auto 71.9 % (50-75); Platelet Count 211 X10^3/uL (150-400); Red Cell Distribution Width 14.2 % (11.6-14.8); White Blood Cell Count 7.9 X10^3/uL (4.5-11.0)
[2019-05-19 17:08] VITALS: BP 121/64; PULSE 70; RESP 14; O2SAT 92
[2019-05-19 17:13] LABS: Alanine Aminotransferase 9 IU/L (9-52); Albumin 4.3 g/dL (3.5-5.0); Albumin Globulin Ratio 1.4 (1.0-2.8); Alkaline Phosphatase 50 U/L (38-126); Aspartate Aminotransferase 29 IU/L (14-36); BUN Creatinine Ratio 11.3 (6-22); Bilirubin Total 0.4 mg/dL (0.2-1.3); Blood Urea Nitrogen 9 mg/dL (7-17); Calcium 9.1 mg/dL (8.4-10.2); Carbon Dioxide 28 mmol/L (22-32); Chloride 105 mmol/L (98-107); Estimated Glomerular Filt Rate > 60.0 mL/min (>60); Glucose 93 mg/dL (70-100); HEMOLYSIS 39 (0-50); Lipase 19 U/L (23-300); Potassium 4.6 mmol/L (3.4-5.1); Sodium 140 mmol/L (137-145); Total Protein 7.3 g/dL (6.3-8.2)
--- NOTE | 2019-05-19 17:13 | ED_ITS ---
HPI - Abdominal Pain General Chief Complaint: Abdominal Pain Stated Complaint: thinks she has kidney stones Time Seen by Provider: 05/19/19 16:13 Source: patient and old records reviewed Mode of arrival: ambulatory Limitations: no limitations History of Present Illness HPI narrative: Patient is a 43-year-old female who presents with right flank pain. She has a history of kidney stones and this feels similar. It started last evening. She actually thinks she passed at least 2 at home. However the pain has continued. She actually had surgery 5 days ago. She was found have an ovarian cyst, at the time of surgery her appendix also noted to be fibrous was removed. Postop patient overall felt significantly better. She is passing stool she has not been nauseous or vomiting. Pain really started in her right flank similar to previous kidney stones. She actually had 2 CAT scans this month already and neither which noted any sort of kidney stone. She was pre initially placed on Cipro for probable UTI however she only received about 3 days of Cipro and it was stopped. MD complaint: flank pain (Right) Related Data Home Medications Medication Instructions Recorded Confirmed fluoxetine 40 mg PO DAILY 05/09/19 05/14/19 gabapentin 900 mg PO TID 05/09/19 05/14/19 levothyroxine 75 mcg PO DAILY 05/09/19 05/14/19 multivitamin 1 tab PO DAILY 05/09/19 05/14/19 tizanidine 4 mg PO BID 05/09/19 05/14/19 Previous Rx's Medication Instructions Recorded hydromorphone [Dilaudid] 2 mg PO Q4H PRN #20 tab 05/15/19 Allergies Allergy/AdvReac Type Severity Reaction Status Date / Time No Known Drug Allergies Allergy Verified 05/19/19 16:21 Review of Systems Review of Systems GENERAL: Denies chills, fatigue, malaise, fever, sweats, travel HEENT: Denies sinus pain, ear pain, sore throat, difficulty swallowing, neck pain RESPIRATORY: Denies dyspnea, cough, wheezing, hemoptysis, sputum. CARDIOVASCULAR: Denies chest pain, palpitations, orthopnea, edema GASTROINTESTINAL: Denies nausea, vomiting, abdominal pain, diarrhea, constipation, melena. : See HPI MUSCULOSKELETAL: Denies weakness, joint pain, or bony pain SKIN: No rash, no erythema, no pruritus NEUROLOGIC: Denies weakness, dizziness, headache, numbness, change in speech, confusion PSYCHIATRIC: No concerning psychosocial issues. 12 point review of systems is negative except for those stated above and HPI [facility] Medical History Bladder prolapse, female, acquired (Chronic) History of renal calculi (Resolved) Surgical History (Updated 05/19/19 @ 18:03 by Noreen Verde DO) Status post appendectomy (Acute) Status post cholecystectomy (Resolved) Status post hysterectomy (Resolved) Social History household members: spouse Smoking Status: Former smoker alcohol intake: current substance use type: marijuana Social History household members: spouse Smoking Status: Former smoker alcohol intake: current substance use type: marijuana Exam Initial Vital Signs Initial Vital Signs: Vital Signs Temperature 98.2 F 05/19/19 16:17 Pulse Rate 72 05/19/19 16:17 Respiratory Rate 16 05/19/19 16:17 Blood Pressure 115/72 05/19/19 16:17 Pulse Oximetry 97 05/19/19 16:17 GENERAL: Well-appearing, well-nourished and in no acute distress. HEENT: Head atraumatic,EOMI, pupils reactive, face symmetric, moist mucous membranes CARDIOVASCULAR: Regular rate and rhythm without murmurs, rubs or gallops. RESPIRATORY: Breath sounds equal bilaterally, no wheezes rales or rhonchi. ABDOMEN: Soft, nontender. Normoactive bowel sounds all 4 quadrants. No guarding or rebound. Incision sites noted clean and dry no erythema appear to be healing Steri-Strips in place : Right CVA tenderness EXTREMITIES: Normal range of motion, no clubbing or edema. Neurovascularly intact NEUROLOGICAL: Alert and oriented x4.Normal gait and speech. SKIN: Warm, dry, no laceration, no petechiae, no rashes or lesions. Course Orders Ordered: ED Orders 05/19/19 16:55 Complete Blood Count AUTO DIFF Stat Comprehensive Metabolic Panel Stat Lipase Stat Sodium Chloride (Normal Saline 0.9%) 1,000 mls @ 1,000 mls/hr IV CONT NAFISA Last Admin: 05/19/19 16:58 Dose: 1,000 mls/hr Discontinued Medications Hydromorphone HCl (Dilaudid) 1 mg IV NOW ONE Stop: 05/19/19 16:45 Last Admin: 05/19/19 16:58 Dose: 1 mg Ketorolac Tromethamine (Toradol) 30 mg IV NOW ONE Stop: 05/19/19 16:32 Last Admin: 05/19/19 16:57 Dose: 30 mg Ondansetron HCl (Zofran) 4 mg IV NOW ONE Stop: 05/19/19 16:32 Last Admin: 05/19/19 16:57 Dose: 4 mg Phenazopyridine HCl (Pyridium 100mg Prepack) 1 bottle MISC SEEINSTR ONE Stop: 05/19/19 17:53 Vital Signs - 8 hr 05/19/19 16:17 05/19/19 17:08 05/19/19 17:37 Temperature 98.2 F Pulse Rate 72 70 61 Respiratory Rate 16 14 Blood Pressure 115/72 Blood Pressure [Right Arm] 121/64 127/71 Pulse Oximetry 97 92 95 MDM - Abdominal Pain Lab Data Attestation: I reviewed the patient's lab results. Result diagrams: 05/19/19 16:55 05/19/19 16:55 Lab Results 05/19/19 05/19/19 Range/Units 16:55 16:55 WBC 7.9 (4.5-11.0) X10^3/uL RBC 4.10 (4.0-5.2) X10^6/uL Hgb 12.6 (12.0-16.0) g/dL Hct 37.6 (36-46) % MCV 91.8 (80-100) fL MCH 30.8 (26-34) PG MCHC 33.6 (30-36) % RDW 14.2 (11.6-14.8) % Plt Count 211 (150-400) X10^3/uL Neut % (Auto) 71.9 (50-75) % Lymph % (Auto) 15.0 L (25-40) % [place] % (Auto) 8.9 (3-14) % Eos % (Auto) 3.6 (2-4) % Baso % (Auto) 0.6 (0-2) % Neut # (Auto) 5700 (8892-7654) /uL Lymph # (Auto) 1200 (8813-8944) /uL [place] # (Auto) 700 (0-900) /uL Eos # (Auto) 300 (0-450) /uL Baso # (Auto) 0 (0-100) /uL Sodium 140 (137-145) mmol/L Potassium 4.6 (3.4-5.1) mmol/L Chloride 105 (98-107) mmol/L Carbon Dioxide 28 (22-32) mmol/L BUN 9 (7-17) mg/dL Creatinine 0.80 (0.52-1.04) mg/dL Estimated GFR > 60.0 (>60) mL/min BUN/Creatinine Ratio 11.3 (6-22) Glucose 93 (70-100) mg/dL Calcium 9.1 (8.4-10.2) mg/dL Total Bilirubin 0.4 (0.2-1.3) mg/dL AST 29 (14-36) IU/L ALT 9 (9-52) IU/L Alkaline Phosphatase 50 (38-126) U/L Total Protein 7.3 (6.3-8.2) g/dL Albumin 4.3 (3.5-5.0) g/dL Globulin 3.0 (1.7-4.1) g/dL Albumin/Globulin Ratio 1.4 (1.0-2.8) Lipase 19 L (23-300) U/L Point of care testing: Urine Dip Bedside Urine Glucose Negative Bedside Urine Bilirubin - Negative Bedside Urine Ketone - Negative Urine Specific [place] 1.015 Bedside Urine Occult Blood - Negative Bedside Urine pH 8.0 Bedside Urine Protein - Negative Bedside Urine Urobilinogen - Negative Bedside Urine Nitrite - Negative Bedside Urine Leukocytes - Negative Esterase MDM Narrative Medical decision making narrative: At this time patient does not have a UTI she has had 2 CT scans last week I do not feel it is appropriate to have another CAT scan. She is having right flank pain with painful urination. Her abdomen is overall soft nontender. She passed 2 kidney stones at home this is likely a kidney stone however she is complaining of significant burning sensation when she urinates. There is no leukocytes or nitrates in her urine at this time. Possible irritation will place her on Pyridium. However recommended that she is continuing to have symptoms she should have a repeat UA. She has pain medication and nausea medication at home from her most recent surgery. Discharge Plan Departure Patient Disposition: Home Clinical Impression: Cystitis Instructions: DI for Interstitial Cystitis Activity Restrictions/Additional Instructions: *You have been diagnosed with cystitis painful urination *What to do: At this time there is no sign of infection. Possible kidney stones however to CTs from last week did not show kidney stones. *Continue to take medications as directed Pyridium 100 mg 3 times a day only needed for painful urination for 2 days *Follow up with your primary care provider in 2-3 days *Return to ER if you should have persistent painful frequent urination increasing flank pain, inability to tolerate fluids or any new, worsening or concerning symptoms Prescriptions: No Action fluoxetine 40 mg capsule 40 mg PO DAILY RF: 0 tizanidine 2 mg tablet 4 mg PO BID RF: 0 levothyroxine 75 mcg tablet 75 mcg PO DAILY RF: 0 gabapentin 300 mg capsule 900 mg PO TID RF: 0 multivitamin Tablet 1 tab PO DAILY RF: 0 hydromorphone [Dilaudid] 2 mg tablet 2 mg PO Q4H PRN (Reason: pain) Qty: 20 RF: 0
[2019-05-19 17:37] VITALS: BP 127/71; PULSE 61; O2SAT 95
[2019-05-19] MEDS: PHENAZOPYRIDINE 100 MG PREPACK 1 BOTTLE MISC (18:13)
[2019-05-19 18:17] VITALS: BP 129/71; PULSE 70; RESP 18; O2SAT 95
== END 2019-05-19 18:23 | disposition home or self-care (01) ==
PROVIDERS: Emergency Provider Emergency Medicine
DX: N30.90 Cystitis, unspecified without hematuria (principal)
CPT/HCPCS: 36591; 80053; 81003; 83690; 85025; 96361; 96374; 96375; 99283; 99284; J1170; J1885; J2405

== ENCOUNTER 2019-07-17 12:12 | Emergency (ER) | payer OTHER, SELFPAY ==
[2019-05-14 00:44] VITALS: BMI 25.7
[2019-07-17] VITALS (7 sets, daily range): BP systolic 112–139; BP diastolic 56–90; PULSE 62–76; RESP 12–18; TEMP 36.8; O2SAT 96–100
--- NOTE | 2019-07-17 13:02 | ED.FEVER ---
HPI - Fever General Chief Complaint: Fever Stated Complaint: thinks she has meningitis Time Seen by Provider: 07/17/19 12:29 Source: patient Mode of arrival: Ambulatory Limitations: no limitations History of Present Illness HPI Narrative: Patient comes emergency department complaining of headache for 3 days, as well as muscular neck stiffness. She states it started with an upper respiratory type infection, with rhinorrhea, cough, and mild sore throat. Patient states that she developed the headache quite early in the course of illness. She states that yesterday, she also began to have vomiting. Patient states she has had temperatures up to 99 orally. Patient states she took some ibuprofen before coming here, but this has not helped. She has also taken her migraine medication at home, but this is also been unhelpful. Patient states she does have body aches, but that this is not unusual for her. She denies any abdominal or chest pain. No shortness of breath. She denies any dysuria. No back pain. No other complaints at this time. She has not been exposed to anybody with meningitis, but she is concerned that she may have meningitis, because a nurse friend told her this was a possibility. Patient states that she had a lumbar puncture about 15 years ago, and had a post tap headache which was quite bad. Patient states this headache is similar to that 1. She is concerned about the possibility of having a lumbar puncture again because of this. Related Data Home Medications Medication Instructions Recorded Confirmed fluoxetine 40 mg PO DAILY 05/09/19 07/17/19 gabapentin 900 mg PO TID 05/09/19 07/17/19 levothyroxine 75 mcg PO DAILY 05/09/19 07/17/19 multivitamin 1 tab PO DAILY 05/09/19 07/17/19 tizanidine 4 mg PO BID 05/09/19 07/17/19 rizatriptan 10 mg PO .ONCE 07/17/19 07/17/19 Previous Rx's Medication Instructions Recorded hydrocodone-acetaminophen [[place]] 1 tab PO Q4-6H PRN #14 tab 07/17/19 prochlorperazine [Compazine] 25 mg OK Q12H PRN #12 each 07/17/19 prochlorperazine maleate 10 mg PO Q6H PRN #14 tab 07/17/19 [Compazine] Allergies Allergy/AdvReac Type Severity Reaction Status Date / Time No Known Drug Allergies Allergy Verified 05/30/19 11:01 Review of Systems Constitutional Constitutional: Denies chills, Denies fatigue, Denies fever(s), Denies frequent falls, Reports headache(s), Denies lethargy and Denies weakness Eyes Eyes: Denies change in vision, Denies eye discharge, Denies irritation and Denies loss of vision ENT Ears, Nose, Mouth, and Throat: Denies change in voice, Denies dizziness, Reports headache(s), Reports nasal congestion, Denies neck pain, Reports sore throat and Denies throat swelling Cardiovascular Cardiovascular: Denies chest pain, Denies irregular heart rhythm, Denies lightheadedness, Denies palpitations, Denies dyspnea, Denies dyspnea on exertion and Denies orthopnea Respiratory Respiratory: Reports cough, Denies dyspnea, Denies dyspnea on exertion and Denies wheezing Gastrointestinal Gastrointestinal: Denies abdominal pain, Denies change in bowel habits, Denies diarrhea, Reports nausea and Reports vomiting Genitourinary Genitourinary: Denies hematuria, Denies flank pain, Denies urinary incontinence and Denies urinary urgency Musculoskeletal Musculoskeletal: Denies back pain, Denies muscle weakness, Denies neck pain, Denies numbness and Denies tingling Integumentary/Breasts Skin/Breast: Denies pruritus, Denies erythema, Denies rash and Denies wounds Neurologic Neurologic: Denies behavioral changes, Denies confusion, Denies dizziness, Denies frequent falls, Reports headache(s), Denies loss of vision, Denies numbness, Denies tingling and Denies weakness Psychiatric Psychiatric: Denies anxiety, Denies behavioral changes, Denies confusion, Denies depression, Denies homicidal ideation and Denies suicidal ideation Endocrine Endocrine: Denies fatigue, Denies flushing and Denies palpitations Hematologic/Lymphatic Hematologic/Lymphatic: Denies easy bruising Allergic/Immunologic Allergic/Immunologic: Denies urticaria, Denies throat swelling and Denies wheezing Patient History Medical History Bladder prolapse, female, acquired (Chronic) History of renal calculi (Resolved) Surgical History History of laparoscopy (Acute ~05/13/19) Status post appendectomy (Acute) Status post cholecystectomy (Resolved) Status post hysterectomy (Resolved) Social History household members: spouse Smoking Status: Former smoker alcohol intake: current substance use type: marijuana Social History household members: spouse Smoking Status: Former smoker alcohol intake: current substance use type: marijuana alcohol intake frequency: holidays/special occasions only Substance Use Type: marijuana Exam Initial Vital Signs Initial Vital Signs: Vital Signs Temperature 98.3 F 07/17/19 12:20 Pulse Rate 64 07/17/19 12:20 Respiratory Rate 18 07/17/19 12:20 Blood Pressure 139/76 07/17/19 12:20 Pulse Oximetry 99 07/17/19 12:20 Const General: cooperative and well developed Nutritional Appearance: well nourished Orientation: alert, awake, oriented x3 and not confused HENMT Head: normocephalic, atraumatic and other (Tenderness over bilateral temples and at base of skull) Ears: external ears normal Nose: external nose normal and No nasal discharge Face and sinus: face symmetric and No dry mucous membranes Mouth: oral mucosae normal and moist mucous membranes Teeth and gingiva: dentition normal Eyes General: appearance normal, both eyes and all related structures Eyelids: eyelids normal Conjunctivae: conjunctivae normal Sclera: sclerae normal Pupils: PERRL EOM: EOM intact bilaterally Neck Neck: normal visual inspection, no meningeal signs, trachea midline, No lymphadenopathy, No midline deformity, No positive Brudzinski's sign, No positive Kernig's sign and No JVD Lymphatic: No lymphedema Other: Patient has tenderness at the origins of her cervical paraspinal musculature bilaterally at the base of the skull. She has somewhat limited range of motion of her neck with flexion, though she is able to flex approximately 50% of normal expected flexion. Chest Chest: normal inspection of the chest Resp Effort & Inspection: normal respiratory effort, able to speak in complete sentences, no respiratory distress and no use of accessory muscles Auscultation: clear to auscultation bilaterally, no rales, no rhonchi and no wheezes Cardio Rate: regular rate Rhythm: regular rhythm Heart Sounds: no click, no gallops, no murmurs and no rubs Pulses: normal peripheral pulses GI Inspection: non-distended Palpation: soft, no hepatosplenomegaly, No guarding, No pulsatile mass and No tender Auscultation: normal bowel sounds Back/Spine/Pelvis Back: No CVA tenderness Cervical Spine: cervical ROM normal and No pain with cervical ROM Thoracic/Lumbar Spine: thoracic and lumbar spine normal to inspection Skin General: no rashes or lesions noted, No jaundice and No petechiae Neuro General: alert, oriented x3, gait normal and no focal motor deficits Speech: speech normal Extrem General: full ROM, no clubbing, cyanosis or edema, no pedal edema and no calf tenderness Psych Appearance: well kempt Mental Status: mental status grossly normal Attitude: cooperative Thought Content: normal and suicidality Judgment: judgment good Course Course Course Narrative: I discussed with the patient that at this point in time, I do not find clear cut evidence of meningitis. The patient reports a bad headache, but her neck stiffness seems to be more muscular than meningeal. Patient has had upper respiratory symptoms and body aches, which indicate a possible flu or flu-like illness, with which headache would be common. I have discussed with the patient that we will start with IV fluids and symptomatic treatment, as well as influenza testing and blood work. Following this, we can discuss whether lumbar puncture is something we should go forward with. The patient's workup was unremarkable, and patient was found to be feeling better after treatment IV fluids and nonnarcotic medication. I discussed with her that the white blood cell count is normal, and the patient does not have meningeal signs. It is a possibility that the patient has a viral meningitis, which could be diagnosed via LP, though even the suggestion of viral meningitis on CSF studies would not foreign exchange trader at this point in time. Patient states she really prefers not to have the lumbar puncture, which I have offered to do. She states she would prefer to manage the symptoms at home. We have discussed the usual indications for return, including changing her mind about the lumbar puncture. Orders Ordered: Discontinued Medications Dexamethasone (Decadron) 10 mg IV NOW ONE Stop: 07/17/19 13:01 Last Admin: 07/17/19 13:22 Dose: 10 mg Documented by: HEMALATHA Diphenhydramine HCl (Benadryl) 12.5 mg IV NOW ONE Stop: 07/17/19 14:18 Last Admin: 07/17/19 14:25 Dose: 12.5 mg Documented by: HOMA Hydromorphone HCl (Dilaudid) 0.5 mg IV NOW ONE Stop: 07/17/19 16:17 Last Admin: 07/17/19 16:21 Dose: 0.5 mg Documented by: BUZZ Sodium Chloride (Normal Saline 0.9%) 1,000 mls @ 1,000 mls/hr IV BOLUS ONE Stop: 07/17/19 13:34 Last Infusion: 07/17/19 14:20 Dose: 0 mls/hr Documented by: Admin: 07/17/19 13:20 Dose: 1,000 mls/hr Documented by: HEMALATHA Sodium Chloride (Normal Saline 0.9%) 1,000 mls @ 1,000 mls/hr IV BOLUS ONE Stop: 07/17/19 13:59 Last Infusion: 07/17/19 15:34 Dose: 0 mls/hr Documented by: Admin: 07/17/19 14:27 Dose: 1,000 mls/hr Documented by: HOMA Ketorolac Tromethamine (Toradol) 30 mg IV NOW ONE Stop: 07/17/19 12:36 Last Admin: 07/17/19 13:21 Dose: 30 mg Documented by: HEMALATHA Ondansetron HCl (Zofran) 4 mg IV NOW ONE Stop: 07/17/19 12:35 Last Admin: 07/17/19 13:23 Dose: 4 mg Documented by: HEMALATHA Prochlorperazine (Compazine) 10 mg IV NOW ONE Stop: 07/17/19 14:18 Last Admin: 07/17/19 14:24 Dose: 10 mg Documented by: HOMA Vital Signs Vital signs: Vital Signs - 8 hr 07/17/19 12:20 Temperature 98.3 F Pulse Rate 64 Respiratory Rate 18 Blood Pressure 139/76 Pulse Oximetry 99 MDM - Fever Medical Records Attestation: I reviewed the patient's medical records. Lab Data Attestation: I reviewed the patient's lab results. Result diagrams: 07/17/19 13:03 07/17/19 13:03 Labs: Lab Results 07/17/19 07/17/19 07/17/19 Range/Units 13:03 13:03 13:03 WBC 8.9 (4.5-11.0) X10^3/uL RBC 4.71 (4.0-5.2) X10^6/uL Hgb 14.4 (12.0-16.0) g/dL Hct 43.2 (36-46) % MCV 91.8 (80-100) fL MCH 30.7 (26-34) PG MCHC 33.4 (30-36) % RDW 13.4 (11.6-14.8) % Plt Count 219 (150-400) X10^3/uL Neut % (Auto) 72.9 (50-75) % Lymph % (Auto) 17.7 L (25-40) % Mcdonald % (Auto) 6.0 (3-14) % Eos % (Auto) 2.9 (2-4) % Baso % (Auto) 0.5 (0-2) % Neut # (Auto) 6500 (5431-5536) /uL Lymph # (Auto) 1600 (1597-2786) /uL Mcdonald # (Auto) 500 (0-900) /uL Eos # (Auto) 300 (0-450) /uL Baso # (Auto) 0 (0-100) /uL PT 10.9 (10.1-12.7) SECONDS INR 1.0 (0.9-1.3) APTT 33 D (26.4-36.2) SECONDS Sodium 142 (137-145) mmol/L Potassium 4.3 (3.4-5.1) mmol/L Chloride 104 (98-107) mmol/L Carbon Dioxide 29 (22-32) mmol/L BUN 15 (7-17) mg/dL Creatinine 0.80 (0.52-1.04) mg/dL Estimated GFR > 60.0 (>60) mL/min BUN/Creatinine Ratio 18.8 (6-22) Glucose 93 (70-100) mg/dL Calcium 10.2 (8.4-10.2) mg/dL Total Bilirubin 0.5 (0.2-1.3) mg/dL AST 27 (14-36) IU/L ALT 18 (9-52) IU/L Alkaline Phosphatase 85 (38-126) U/L Total Protein 8.2 (6.3-8.2) g/dL Albumin 5.0 (3.5-5.0) g/dL Globulin 3.2 (1.7-4.1) g/dL Albumin/Globulin Ratio 1.6 (1.0-2.8) Lipase 68 (23-300) U/L Influenza A & B (PCR) (Negative) 07/17/19 Range/Units 13:03 WBC (4.5-11.0) X10^3/uL RBC (4.0-5.2) X10^6/uL Hgb (12.0-16.0) g/dL Hct (36-46) % MCV (80-100) fL MCH (26-34) PG MCHC (30-36) % RDW (11.6-14.8) % Plt Count (150-400) X10^3/uL Neut % (Auto) (50-75) % Lymph % (Auto) (25-40) % Mcdonald % (Auto) (3-14) % Eos % (Auto) (2-4) % Baso % (Auto) (0-2) % Neut # (Auto) (7331-2247) /uL Lymph # (Auto) (7046-2607) /uL Mcdonald # (Auto) (0-900) /uL Eos # (Auto) (0-450) /uL Baso # (Auto) (0-100) /uL PT (10.1-12.7) SECONDS INR (0.9-1.3) APTT (26.4-36.2) SECONDS Sodium (137-145) mmol/L Potassium (3.4-5.1) mmol/L Chloride (98-107) mmol/L Carbon Dioxide (22-32) mmol/L BUN (7-17) mg/dL Creatinine (0.52-1.04) mg/dL Estimated GFR (>60) mL/min BUN/Creatinine Ratio (6-22) Glucose (70-100) mg/dL Calcium (8.4-10.2) mg/dL Total Bilirubin (0.2-1.3) mg/dL AST (14-36) IU/L ALT (9-52) IU/L Alkaline Phosphatase (38-126) U/L Total Protein (6.3-8.2) g/dL Albumin (3.5-5.0) g/dL Globulin (1.7-4.1) g/dL Albumin/Globulin Ratio (1.0-2.8) Lipase (23-300) U/L Influenza A & B (PCR) Negative (Negative) Urine Dip Bedside Urine Glucose Negative Bedside Urine Bilirubin - Negative Bedside Urine Ketone - Negative Urine Specific [place] 1.010 Bedside Urine Occult Blood - Negative Bedside Urine pH 6.0 Bedside Urine Protein - Negative Bedside Urine Urobilinogen - Negative Bedside Urine Nitrite - Negative Bedside Urine Leukocytes - Negative Esterase Imaging Data CT scan - head: Radiologist's impression: PROCEDURE: CT HEAD/BRAIN WO CON INDICATIONS: headache TECHNIQUE: Noncontrast 4.5 mm thick angled axial sections acquired from the foramen magnum to the vertex, with coronal and sagittal reformats. For radiation dose reduction, the following was used: automated exposure control, adjustment of mA and/or kV according to patient size. COMPARISON: None. FINDINGS: Image quality: Excellent. CSF spaces: Basal cisterns are patent. No extra-axial fluid collections. Ventricles are normal in size and shape. Brain: No midline shift. No intracranial masses or hemorrhage. Keys-white matter interface is normal. Skull and face: Calvarium and visualized facial bones are intact, without suspicious lesions. Sinuses: Visualized sinuses and mastoids are clear. IMPRESSION: Normal intracranial study. No acute intracranial hemorrhage is seen. No masses or mass effect. Dictated by: Shan Collier M.D. on 07/17/2019 at 12:43 Approved by: Shan Collier M.D. on 07/17/2019 at 12:44 Discharge Plan Departure Patient Disposition: Home Clinical Impression: Acute viral syndrome Headache Qualifiers: Headache type: unspecified Headache chronicity pattern: acute headache Intractability: not intractable Qualified Code(s): R51 - Headache Vomiting Qualifiers: Vomiting type: unspecified Vomiting Intractability: non-intractable Nausea presence: with nausea Qualified Code(s): R11.2 - Nausea with vomiting, unspecified Discharge Date/Time: 07/17/19 16:56 Instructions: DI for Viral Syndrome, DI for Vomiting -- Adult, DI for Headache Activity Restrictions/Additional Instructions: Your labs look good. Your white blood cell count is normal. Your CT scan of the also is normal. Influenza testing is negative. As we have discussed, your symptoms may be due to one many flu-like viruses that go around at the same time as influenza. It is possible that you do have viral meningitis, which can cause a bad headache and vomiting, as well as low-grade fever. Like all viruses, the source virus must be subdued by the body itself, and antibiotics are not helpful. You do not have any signs of bacterial meningitis at this time. As we have discussed, lumbar puncture is the only definitive test to determine whether not you have meningitis. At this point in time, you have declined to have this test done. If you change your mind, you may return to the emergency department and discuss the possibility of lumbar puncture with the emergency physician on duty at that time. Prescriptions: New prochlorperazine maleate [Compazine] 10 mg tablet 10 mg PO Q6H PRN (Reason: nausea and vomiting) Qty: 14 RF: 0 prochlorperazine [Compazine] 25 mg suppository 25 mg OK Q12H PRN (Reason: nausea and vomiting) Qty: 12 RF: 0 hydrocodone-acetaminophen [[place]] 5-325 mg tablet 1 tab PO Q4-6H PRN (Reason: pain) Qty: 14 RF: 0 No Action fluoxetine 40 mg capsule 40 mg PO DAILY RF: 0 tizanidine 2 mg tablet 4 mg PO BID RF: 0 levothyroxine 75 mcg tablet 75 mcg PO DAILY RF: 0 gabapentin 300 mg capsule 900 mg PO TID RF: 0 multivitamin Tablet 1 tab PO DAILY RF: 0 rizatriptan 10 mg tablet,disintegrating 10 mg PO .ONCE RF: 0 Referrals: Aroldo Hernandez DO [Primary Care Provider] -
--- NOTE | 2019-07-17 13:09 | DI.CT.S_ITS ---
PROCEDURE: CT HEAD/BRAIN WO CON INDICATIONS: headache TECHNIQUE: Noncontrast 4.5 mm thick angled axial sections acquired from the foramen magnum to the vertex, with coronal and sagittal reformats. For radiation dose reduction, the following was used: automated exposure control, adjustment of mA and/or kV according to patient size. COMPARISON: None. FINDINGS: Image quality: Excellent. CSF spaces: Basal cisterns are patent. No extra-axial fluid collections. Ventricles are normal in size and shape. Brain: No midline shift. No intracranial masses or hemorrhage. Keys-white matter interface is normal. Skull and face: Calvarium and visualized facial bones are intact, without suspicious lesions. Sinuses: Visualized sinuses and mastoids are clear. IMPRESSION: Normal intracranial study. No acute intracranial hemorrhage is seen. No masses or mass effect. Dictated by: Shan Collier M.D. on 07/17/2019 at 12:43 Approved by: Shan Collier M.D. on 07/17/2019 at 12:44
--- NOTE | 2019-07-17 13:09 | PC.NURSE ---
patient reports worse headache of her life. Has history of migraines but this doesn't feel like that. patient pain is worse with movement of neck. Saw doctor yesterday tried zofran at home with minimal to no relief. Patient has some range of motion but pain does get worse. Sensitive to light.
[2019-07-17 13:14] LABS: Add Manual Diff / Slide Review NO; Basophils Absolute Auto 0 /uL (0-100); Basophils Percent Auto 0.5 % (0-2); Eosinophils Absolute Auto 300 /uL (0-450); Eosinophils Percent Auto 2.9 % (2-4); Hematocrit 43.2 % (36-46); Hemoglobin 14.4 g/dL (12.0-16.0); Lymphocytes Absolute Auto 1600 /uL (1100-4500); Lymphocytes Percent Auto 17.7 % (25-40); Mean Corpuscular HGB Conc 33.4 % (30-36); Mean Corpuscular Hemoglobin 30.7 PG (26-34); Mean Corpuscular Volume 91.8 fL (80-100); Monocytes Absolute Auto 500 /uL (0-900); Neutrophils Absolute Auto 6500 /uL (1500-7000); Neutrophils Percent Auto 72.9 % (50-75); Platelet Count 219 X10^3/uL (150-400); Red Blood Cell Count 4.71 X10^6/uL (4.0-5.2); Red Cell Distribution Width 13.4 % (11.6-14.8); White Blood Cell Count 8.9 X10^3/uL (4.5-11.0)
[2019-07-17] MEDS: SODIUM CHLORIDE 0.9% 1,000 ML 1000 ML IV ×2 (13:20→14:27)
[2019-07-17 13:21] LABS: Prothrombin Time 10.9 SECONDS (10.1-12.7)
[2019-07-17] MEDS: KETOROLAC 60 MG/2 ML VIAL 30 MG IV (13:21)
[2019-07-17] MEDS: DEXAMETHASONE 10 MG/ML VIAL IV (13:22)
[2019-07-17] MEDS: ONDANSETRON 4 MG/2 ML INJ IV (13:23)
[2019-07-17 13:24] LABS: PTT Partial Thromboplastin Tim 33 SECONDS (26.4-36.2)
[2019-07-17 13:29] LABS: Influenza A and B by PCR Rapid Negative (Negative)
[2019-07-17 13:31] LABS: Alanine Aminotransferase 18 IU/L (9-52); Albumin Globulin Ratio 1.6 (1.0-2.8); Alkaline Phosphatase 85 U/L (38-126); Aspartate Aminotransferase 27 IU/L (14-36); BUN Creatinine Ratio 18.8 (6-22); Bilirubin Total 0.5 mg/dL (0.2-1.3); Blood Urea Nitrogen 15 mg/dL (7-17); Calcium 10.2 mg/dL (8.4-10.2); Carbon Dioxide 29 mmol/L (22-32); Chloride 104 mmol/L (98-107); Estimated Glomerular Filt Rate > 60.0 mL/min (>60); Globulin 3.2 g/dL (1.7-4.1); Glucose 93 mg/dL (70-100); HEMOLYSIS < 15 (0-50); Lipase 68 U/L (23-300); Potassium 4.3 mmol/L (3.4-5.1); Sodium 142 mmol/L (137-145); Total Protein 8.2 g/dL (6.3-8.2)
[2019-07-17] MEDS: PROCHLORPERAZINE 10 MG/2 ML VIAL IV (14:24)
[2019-07-17] MEDS: diphenhydrAMINE 50 MG/ML VIAL 12.5 MG IV (14:25)
[2019-07-17] MEDS: HYDROMORPHONE 0.5 MG INJ IV (16:21)
== END 2019-07-17 16:56 | disposition home or self-care (01) ==
PROVIDERS: Emergency Provider Emergency Medicine; PCP Family Medicine
DX: B34.9 Viral infection, unspecified (principal); R51 Headache; R11.2 Nausea with vomiting, unspecified
CPT/HCPCS: 36415; 70450; 80053; 81003; 83690; 85025; 85610; 85730; 87400; 87502; 96361; 96374; 96375; 99283; 99284; J0780; J1100; J1170; J1200; J1885; J2405

== ENCOUNTER 2019-08-14 12:17 | Emergency (ER) | payer OTHER, SELFPAY ==
[2019-05-14 00:44] VITALS: BMI 25.7
[2019-08-14 12:24] VITALS: BP 127/70; PULSE 70; RESP 18; TEMP 36.6; O2SAT 97
--- NOTE | 2019-08-14 13:59 | ED_ITS ---
HPI - Weakness General Chief complaint: Weakness Stated complaint: left side numbness all limbs have disc problems Time Seen by Provider: 08/14/19 13:37 Source: patient Mode of arrival: Ambulatory Limitations: no limitations History of Present Illness HPI Narrative: Patient is a 43-year-old female with known degenerative disc disease. Has been told several years ago that she needed surgery on her neck. She does have left-sided radiculopathy which has worsened over the past 2 weeks. Has seen her primary provider. Is scheduled to have an MRI on Monday of her cervical spine. Is currently taking medications for this. Does have an appointment with orthopedic spine after the MRI. She has also had a history of lumbar spinal stenosis. She states that 2 weeks ago she started having worsening pain radiating down her left leg. She also reports that she has numbness in the general area. Also has problems controlling her urine. Also has weakness in her left lower extremity. This also has been going on for the past 2 weeks. No fevers. No specific trauma to start the symptoms. Related Data Home Medications Medication Instructions Recorded Confirmed fluoxetine 40 mg PO DAILY 05/09/19 07/17/19 gabapentin 900 mg PO TID 05/09/19 07/17/19 levothyroxine 75 mcg PO DAILY 05/09/19 07/17/19 multivitamin 1 tab PO DAILY 05/09/19 07/17/19 tizanidine 4 mg PO BID 05/09/19 07/17/19 rizatriptan 10 mg PO .ONCE 07/17/19 07/17/19 Previous Rx's Medication Instructions Recorded hydrocodone-acetaminophen [[place]] 1 tab PO Q4-6H PRN #14 tab 07/17/19 prochlorperazine [Compazine] 25 mg TX Q12H PRN #12 each 07/17/19 prochlorperazine maleate 10 mg PO Q6H PRN #14 tab 07/17/19 [Compazine] cyclobenzaprine 10 mg PO TID PRN #12 tab 08/14/19 meloxicam [Mobic] 15 mg PO DAILY #30 tab 08/14/19 prednisone 40 mg PO DAILY 5 Days #10 tab 08/14/19 Allergies Allergy/AdvReac Type Severity Reaction Status Date / Time No Known Drug Allergies Allergy Verified 05/30/19 11:01 Review of Systems Constitutional Constitutional: Denies fatigue and Denies frequent falls ENT Ears, Nose, Mouth, and Throat: Reports neck pain Cardiovascular Cardiovascular: Denies chest pain and Denies dyspnea Respiratory Respiratory: Denies dyspnea Gastrointestinal Gastrointestinal: Denies abdominal pain, Denies nausea and Denies vomiting Genitourinary Genitourinary: Reports difficulty voiding, Denies dysuria, Reports urinary incontinence and Denies vaginal discharge Musculoskeletal Musculoskeletal: Reports back pain and Reports neck pain Neurologic Neurologic: Denies frequent falls Endocrine Endocrine: Denies fatigue Hematologic/Lymphatic Hematologic/Lymphatic: Denies easy bleeding and Denies easy bruising Patient History Medical History Bladder prolapse, female, acquired (Chronic) History of renal calculi (Resolved) Social History household members: spouse Smoking Status: Former smoker alcohol intake: current substance use type: marijuana tobacco type: cigarettes alcohol intake frequency: holidays/special occasions only Alcohol type: wine Substance Use Type: marijuana Exam Initial Vital Signs Initial Vital Signs: Vital Signs Temperature 98 F 08/14/19 12:24 Pulse Rate 70 08/14/19 12:24 Respiratory Rate 18 08/14/19 12:24 Blood Pressure 127/70 08/14/19 12:24 Pulse Oximetry 97 08/14/19 12:24 Const General: cooperative and comfortable Resp Effort & Inspection: normal respiratory effort Auscultation: clear to auscultation bilaterally Cardio Rate: regular rate Rhythm: regular rhythm GI Inspection: non-distended Palpation: soft Skin Lesions: no lesions Rashes: no rashes Neuro General: alert, awake and oriented x3 Cognition: normal cognition Speech: speech normal Other: 3/5 strength left upper extremity 5/5 right upper extremity, 3/5 strength with plantar flexion left lower extremity 5/5 with dorsiflexion. 5/5 plantar and dorsiflexion right lower extremity. Sensory deficits left upper extremity consistent with C5-C6. Left lower extremity does not follow specific nerve root pattern. Extrem General: normal to inspection and capillary refill normal Psych Appearance: grossly normal and well kempt Course Orders Ordered: ED Orders 08/14/19 14:00 MR cervical spine wo con Stat MR lumbar spine wo con Stat Discontinued Medications Hydrocodone Bitart/Acetaminophen ([place] 5/325) 1 tab PO NOW ONE Stop: 08/14/19 14:43 Last Admin: 08/14/19 14:49 Dose: 1 tab Documented by: BUZZ Vital Signs Vital signs: Vital Signs - 8 hr 08/14/19 12:24 08/14/19 17:44 Temperature 98 F Pulse Rate 70 57 L Respiratory Rate 18 16 Blood Pressure 127/70 Blood Pressure [Right Arm] 115/79 Pulse Oximetry 97 100 MDM - Weakness Imaging Data MRI cervical spine: Radiologist's impression: [address] [address] Magnetic Resonance Report Signed Patient: Sarah Floyd JMR#: [id number] : 1975Acct:[id number] Age/Sex: 43 / FDate of Service: 08/14/19 Loc: ED Accession Number: [id number] Procedure: MR cervical spine wo con Ordering Provider: Donell Dixon D.O. PROCEDURE: MR CERVICAL SPINE WO CON INDICATIONS: Left-sided numbness TECHNIQUE: Noncontrast sagittal T1 spin echo and T2 fast spin echo, sagittal STIR, foraminal oblique sagittal T2 fast spin echo, and axial gradient echo or T2 fast spin echo through the cervical spine. COMPARISON: [facility], MR, MR LUMBAR SPINE WO CON, 08/14/2019, 15:22. FINDINGS: Image quality: Diagnostic Alignment and Curvature: There is reversal of the normal cervical lordosis, with the apex at C5-C6. Bone Marrow: Marrow demonstrates normal overall signal. Spinal Cord: Visualized spinal cord has normal size and signal. No cerebellar tonsillar herniation. Paraspinous Soft Tissues: No paravertebral masses. Prevertebral soft tissues are normal in thickness. C2-C3: Normal appearance. C3-C4: The disc height is well-preserved. Loss of disc signal is seen at this level. A mild degree of generalized disc osteophyte complex is seen. There is a minimal central disc osteophyte protrusion seen. There is mild right-sided and no left-sided neural foraminal narrowing seen. Minimal central canal narrowing is seen. C4-C5: Mild loss of disc height is seen. Loss of disc signal is seen. There is mild to moderate right-sided and mild to moderate left-sided neural foraminal narrowing seen. No significant central canal narrowing is seen. C5-C6: Mild loss of disc height is seen. Loss of disc signal is seen. There is moderate to severe left-sided and minimal right-sided neural foraminal narrowing seen. Mild to moderate central canal narrowing is seen. C6-C7: Mild loss of disc height is seen. Loss of disc signal is seen. There is at least moderate left-sided and minimal right-sided neural foraminal narrowing seen. [id number] central canal narrowing is seen, with associated mass effect upon the ventral spinal cord. C7-T1: Normal appearance. IMPRESSION: Cervical spine degenerative changes are seen, which are most prominent at C5-C6, where there is moderate to severe left-sided neural foraminal narrowing. Reversal of the normal cervical lordosis is seen. This is commonly observed in patients with muscular spasm. Reversal of the normal cervical lordosis is seen. This is commonly observed in patients with muscular spasm. Dictated by: Shan Collier M.D. on 08/14/2019 at 14:51 Approved by: Shan Collier M.D. on 08/14/2019 at 14:5 MRI lumbar spine: Radiologist's impression: [place] [address] Magnetic Resonance Report Signed Patient: Sarah Floyd JMR#: [id number] : 1975Acct:[id number] Age/Sex: 43 / FDate of Service: 08/14/19 Loc: ED Accession Number: [id number] Procedure: MR lumbar spine wo con Ordering Provider: Donell Dixon D.O. PROCEDURE: MR LUMBAR SPINE WO CON INDICATIONS: Left-sided numbness, eval for cauda equina TECHNIQUE: Noncontrast sagittal T1 spin echo and T2 fast echo, sagittal STIR, axial T1 and T2 fast spin echo through the lumbar spine. In cases with scoliosis, additional coronal T2 fast spin echo may be performed. COMPARISON: [facility], CT, CT ABDOMEN PELVIS W CON, 05/09/2019, 18:51. FINDINGS: Image quality: Excellent. Alignment and Curvature: There is trace L4-L5 and L5-S1 retrolisthesis. Bones: Based on prior CT scans of the abdomen and pelvis there appears to be 6 lumbar type nonrib-bearing vertebral bodies with non-rudimentary S1-S2 disc. For purposes of this dictation the 6 lumbar type nonrib-bearing vertebral bodies will be designated L1-S1 with the last non-rudimentary disc designated S1-S2. Mild reactive endplate change is noted just at the L5-S1 disc. No acute vertebral body compression fractures. Spinal Cord: Conus medullaris terminates at the S1-2 disc level. Visualized cord demonstrates normal signal and size. Paraspinous Soft Tissues: No paravertebral masses. L1-L2: Loss of disc signal and height. Mild, diffuse disc bulge. No central stenosis. No neural foraminal narrowing. No neural compression. L2-L3: Normal appearance. L3-L4: Loss of disc signal and slight loss of disc height. Mild, diffuse disc bulge. Mild narrowing of the central canal. Mild bilateral neural foraminal narrowing. No neural compression. L4-L5: Loss of disc signal and slight loss of disc height. Mild diffuse disc bulge. Mild narrowing of the central canal. Mild bilateral neural foraminal narrowing. No neural compression. L5-S1: Loss of disc signal and height. Mild, diffuse disc bulge with small central disc protrusion. Mild bilateral facet hypertrophy. Mild to moderate narrowing of the central canal. Moderate right and mild left neural foraminal narrowing. No neural compression. S1-S2: Disc has a normal appearance. Moderate bilateral facet hypertrophy. No central stenosis. Mild bilateral neural foraminal narrowing. No neural compression. IMPRESSION: 1. Probable transitional anatomy with 6 lumbar-type [id number] vertebral bodies in non-rudimentary S1-S2 disc. Prior injury or surgical intervention correlation with plain film radiographs to confirm lumbar spine numbering is recommended. 2. Multilevel degenerative disc disease. 3. Multilevel facet arthropathy. 4. Mild L3-L4 and L4-L5 central canal narrowing. Mild to moderate L5-S1 central canal narrowing. 5. Moderate right and mild left L5-S1 neural foraminal narrowing. Mild bilateral L3-L4 and L4-L5 neural foraminal narrowing. 6. No neural compression. Dictated by: Galilea Lopez MD, PhD on 08/14/2019 at 15:48 Approved by: Galilea Lopez MD, PhD on 08/14/2019 at 16:06 [facility] Narrative Medical decision making narrative: Patient's MRI does show some degenerative disc disease however no signs of cauda equina. The cervical spine does show signs of what appears to be muscle spasm. Will send home with a short course of prednisone. Will have Mobic for after this. Also sent home with muscle rela xers. She has a follow-up with Orthopedic Spine already. No emergent consultation needed. I discussed all the findings with the patient. We discussed return precautions. She expressed understanding and agreement plan Discharge Plan Departure Patient Disposition: Home Clinical Impression: Cervical radiculopathy, Left lumbar radiculopathy Discharge Date/Time: 08/14/19 17:46 Instructions: DI for Cervical Radiculopathy, DI for Lumbar Radiculopathy Activity Restrictions/Additional Instructions: Keep all of your scheduled medical appointments. Take the medications as directed. Return to the emergency department for any new or worsening symptoms Prescriptions: New prednisone 20 mg tablet 40 mg PO DAILY 5 Days Qty: 10 RF: 0 meloxicam [Mobic] 15 mg tablet 15 mg PO DAILY Qty: 30 RF: 0 cyclobenzaprine 10 mg tablet 10 mg PO TID PRN (Reason: muscle spasm) Qty: 12 RF: 0 No Action fluoxetine 40 mg capsule 40 mg PO DAILY RF: 0 tizanidine 2 mg tablet 4 mg PO BID RF: 0 levothyroxine 75 mcg tablet 75 mcg PO DAILY RF: 0 gabapentin 300 mg capsule 900 mg PO TID RF: 0 multivitamin Tablet 1 tab PO DAILY RF: 0 rizatriptan 10 mg tablet,disintegrating 10 mg PO .ONCE RF: 0 prochlorperazine maleate [Compazine] 10 mg tablet 10 mg PO Q6H PRN (Reason: nausea and vomiting) Qty: 14 RF: 0 prochlorperazine [Compazine] 25 mg suppository 25 mg TX Q12H PRN (Reason: nausea and vomiting) Qty: 12 RF: 0 hydrocodone-acetaminophen [[place]] 5-325 mg tablet 1 tab PO Q4-6H PRN (Reason: pain) Qty: 14 RF: 0 Referrals: Aroldo Hernandez DO [Primary Care Provider] -
[2019-08-14] MEDS: HYDROCODONE/ACET 5/325 TABLET 1 TAB PO (14:49)
--- NOTE | 2019-08-14 15:57 | PC.NURSE ---
reports weakness in left lower leg, increase difficulty contorlling bladder, some numbness in genital region. Suppose to have MRI next week for these symptoms. Has been getting worse over the last two weeks
[2019-08-14 17:44] VITALS: BP 115/79; PULSE 57; RESP 16; O2SAT 100
== END 2019-08-14 17:46 | disposition home or self-care (01) ==
PROVIDERS: Emergency Provider Emergency Medicine; PCP Family Medicine
DX: M54.12 Radiculopathy, cervical region (principal); M54.16 Radiculopathy, lumbar region
CPT/HCPCS: 72141; 72148; 99282; 99283

== ENCOUNTER 2019-11-01 11:03 | Emergency (ER) | payer OTHER, SELFPAY ==
[2019-05-14 00:44] VITALS: BMI 25.7
[2019-11-01] VITALS (12 sets, daily range): BP systolic 85–148; BP diastolic 46–73; PULSE 29–58; RESP 14–24; TEMP 36.7; O2SAT 95–100; BMI 20.2
--- NOTE | 2019-11-01 11:16 | DI.RAD.S_ITS ---
PROCEDURE: XR CHEST 1V INDICATIONS: chest pain TECHNIQUE: One view of the chest was acquired. COMPARISON: None. FINDINGS: Surgical changes and devices: None. Lungs and pleura: Lungs are clear. No pleural effusions or pneumothorax. Mediastinum: Mediastinal contours appear normal. Heart size is normal. Bones and chest wall: No suspicious bony lesions. Overlying soft tissues appear unremarkable. IMPRESSION: No acute cardiopulmonary abnormality. Dictated by: Dave Nuñez M.D. on 11/01/2019 at 12:01 Approved by: Dave Nuñez M.D. on 11/01/2019 at 12:02
[2019-11-01] MEDS: SODIUM CHLORIDE 0.9% 1,000 ML 1000 ML IV (11:20)
--- NOTE | 2019-11-01 11:33 | DI.CT.S_ITS ---
PROCEDURE: CT ANGIO CHEST PE PROTOCOL INDICATIONS: so with recent neck surgery TECHNIQUE: After the administration of intravenous contrast, 2 mm thick sections acquired from the pulmonary apices to the posterior costophrenic angles. 3-dimensional maximum intensity projection (MIP) coronal and sagittal reformats were then acquired through the thorax. For radiation dose reduction, the following was used: automated exposure control, adjustment of mA and/or kV according to patient size. COMPARISON: [facility], CT, CT ABDOMEN PELVIS W CON, 05/13/2019, 21:15. FINDINGS: Image quality: Excellent. Diagnostic to the level of the subsegmental pulmonary arteries. Pulmonary arteries: Pulmonary arteries are normal in size, and demonstrate no intraluminal filling defects to suggest pulmonary embolism. Lungs and pleura: Minimal dependent atelectasis. No significant acute airspace opacity. 3 mm pulmonary nodule along the left major fissure, (5/22) likely a small intrapulmonary lymph node. No pleural effusions or pneumothorax. Central and peripheral airways are patent. Mediastinum: Heart size is normal, without pericardial effusion. No mediastinal or hilar adenopathy. Thoracic aorta is normal in caliber and enhancement. Esophagus is normal in caliber, without hiatal hernia. Bones and chest wall: ACDF. No suspicious bony lesions. Ribs and thoracic spine appear intact throughout. Thyroid gland is unremarkable. No axillary or supraclavicular adenopathy. Abdomen: Visualized upper abdominal solid organs appear normal in the early arterial phase of enhancement. Probable hepatic steatosis. IMPRESSION: 1. No pulmonary embolism. 2. No significant acute airspace opacity. Dictated by: Dave Nuñez M.D. on 11/01/2019 at 13:01 Approved by: Dave Nuñez M.D. on 11/01/2019 at 13:07
[2019-11-01 11:41] LABS: Add Manual Diff / Slide Review NO; Basophils Absolute Auto 100 /uL (0-100); Basophils Percent Auto 0.7 % (0-2); Eosinophils Absolute Auto 100 /uL (0-450); Eosinophils Percent Auto 1.9 % (2-4); Hematocrit 36.8 % (36-46); Hemoglobin 12.5 g/dL (12.0-16.0); Lymphocytes Absolute Auto 1700 /uL (1100-4500); Lymphocytes Percent Auto 22.5 % (25-40); Mean Corpuscular HGB Conc 33.9 % (30-36); Mean Corpuscular Volume 91.6 fL (80-100); Monocytes Absolute Auto 400 /uL (0-900); Neutrophils Absolute Auto 5100 /uL (1500-7000); Neutrophils Percent Auto 68.9 % (50-75); Platelet Count 218 X10^3/uL (150-400); Red Blood Cell Count 4.02 X10^6/uL (4.0-5.2); Red Cell Distribution Width 12.8 % (11.6-14.8); White Blood Cell Count 7.4 X10^3/uL (4.5-11.0)
--- NOTE | 2019-11-01 11:41 | ED.CHESTPAIN ---
HPI - Chest Pain General Chief Complaint: Chest Pain Stated Complaint: low HR, dizziness, SOB- Sent by PCP Time Seen by Provider: 11/01/19 11:21 Source: patient Mode of arrival: Ambulatory Limitations: no limitations History of Present Illness HPI narrative: Patient is a 43-year-old female who presents from a PCP office for dizziness lightheadedness and heart rate 30-40 ongoing for last 3-4 days. His actually postoperative cervical fusion about 1 month. He has been doing well she does take hydrocodone daily but has for a while. She says she feels little dizzy and lightheaded every time she stands up. She has not passed out she denies chest pain or heart palpitations no weakness numbness or tingling. She is noted have initial blood pressure 85/46 and heart rate 51 however that does decrease into the 30s. She says she is starting to feel little bit better now in the emergency department. Related Data Home Medications Medication Instructions Recorded Confirmed fluoxetine 40 mg PO DAILY 05/09/19 11/01/19 gabapentin 900 mg PO TID 05/09/19 11/01/19 levothyroxine 75 mcg PO DAILY 05/09/19 11/01/19 multivitamin 1 tab PO DAILY 05/09/19 11/01/19 tizanidine 4 mg PO BID 05/09/19 11/01/19 rizatriptan 10 mg PO .ONCE 07/17/19 11/01/19 estradiol 1 mg PO QPM 11/01/19 11/01/19 hydrocodone-acetaminophen 1 tab PO Q4H PRN 11/01/19 11/01/19 naproxen 500 mg PO BID PRN 11/01/19 11/01/19 Allergies Allergy/AdvReac Type Severity Reaction Status Date / Time No Known Drug Allergies Allergy Verified 11/01/19 11:16 Review of Systems Review of Systems ROS Unobtainable: All systems reviewed & are unremarkable except as noted in HPI and below Constitutional Constitutional: Denies chills, Denies fever(s), Denies lethargy and Denies weakness Eyes Eyes: Denies change in vision, Denies eye discharge, Denies irritation and Denies loss of vision Cardiovascular Cardiovascular: Denies chest pain, Denies irregular heart rhythm, Reports lightheadedness, Denies dyspnea and Denies dyspnea on exertion Respiratory Respiratory: Denies cough, Denies dyspnea, Denies dyspnea on exertion and Denies wheezing Gastrointestinal Gastrointestinal: Denies abdominal pain, Denies change in bowel habits, Denies diarrhea, Denies nausea and Denies vomiting Genitourinary Genitourinary: Denies hematuria, Denies flank pain, Denies urinary incontinence and Denies urinary urgency Musculoskeletal Musculoskeletal: Denies back pain, Denies muscle weakness, Denies numbness and Denies tingling Integumentary/Breasts Skin/Breast: Denies pruritus, Denies erythema, Denies rash and Denies wounds Neurologic Neurologic: Denies loss of vision, Denies numbness, Denies tingling and Denies weakness Allergic/Immunologic Allergic/Immunologic: Denies wheezing Patient History Medical History Bladder prolapse, female, acquired (Chronic) History of renal calculi (Resolved) Surgical History History of laparoscopy (Acute ~05/13/19) Status post appendectomy (Acute) Status post cholecystectomy (Resolved) Status post hysterectomy (Resolved) Social History household members: spouse Smoking Status: Former smoker alcohol intake: current substance use type: marijuana Smoking Status: Former smoker tobacco type: cigarettes alcohol intake frequency: holidays/special occasions only Alcohol type: wine Substance Use Type: marijuana Exam Initial Vital Signs Initial Vital Signs: Vital Signs Temperature 98.0 F 11/01/19 11:16 Pulse Rate 51 L 11/01/19 11:16 Respiratory Rate 16 11/01/19 11:16 Blood Pressure 85/46 L 11/01/19 11:16 Pulse Oximetry 99 11/01/19 11:16 GENERAL: Well-appearing, well-nourished and in no acute distress. HEENT: Head atraumatic,EOMI, pupils reactive, face symmetric, moist mucous membranes CARDIOVASCULAR: Regular rate and rhythm without murmurs, rubs or gallops. RESPIRATORY: Breath sounds equal bilaterally, no wheezes rales or rhonchi. ABDOMEN: Soft, nontender. Normoactive bowel sounds all 4 quadrants. No guarding or rebound. EXTREMITIES: Normal range of motion, no clubbing or edema. Neurovascularly intact NEUROLOGICAL: Alert and oriented x4.Normal gait and speech. Cranial nerves II through XII grossly intact. Good [id number], good [id number], strength equal bilaterally, no dysarthria or aphasia, sensation in tact to soft touch bilaterally, no visual changes, no facial droop SKIN: Warm, dry, no laceration, no petechiae, no rashes or lesions. Course Orders Ordered: ED Orders 11/01/19 11:15 Lactate (Lactic Acid) Stat 11/01/19 11:16 XR chest 1V Stat EKG-12 Lead Stat 11/01/19 11:20 Complete Blood Count AUTO DIFF Stat Comprehensive Metabolic Panel Stat D Dimer Stat Lipase Stat NT-proBNP (BNP-Adult 18+) Stat Partial Thromboplastin Time Stat Test Serum,Qual Stat Prothrombin Time INR Stat Thyroid Stimulating Hormone Stat Troponin & CK Cardiac Panel Stat 11/01/19 11:22 Urine Drug Screen, Rapid Stat 11/01/19 11:30 Blood Culture Stat 11/01/19 11:33 CT angio chest PE protocol Stat Sodium Chloride (Normal Saline 0.9%) 1,000 mls @ 100 mls/hr IV BOLUS ONE Stop: 11/01/19 23:37 Last Infusion: 11/01/19 15:22 Dose: 0 mls/hr Documented by: Admin: 11/01/19 13:40 Dose: 100 mls/hr Documented by: HEMALATHA Discontinued Medications Atropine Sulfate (Atropine) 0.5 mg IV NOW ONE Stop: 11/01/19 13:26 Last Admin: 11/01/19 13:27 Dose: 0.5 mg Documented by: HEMALATHA Sodium Chloride (Normal Saline 0.9%) 1,000 mls @ 1,000 mls/hr IV BOLUS ONE Stop: 11/01/19 12:20 Last Infusion: 11/01/19 12:29 Dose: 0 mls/hr Documented by: Admin: 11/01/19 11:20 Dose: 1,000 mls/hr Documented by: HEMALATHA Consultations Consultation #1: Dr. Gray cardiology updated on patient's symptoms test results , agrees with transfer to [facility] for evaluation for possible pacemaker Time: 13:32 Consultation #2: Dr. Hurt, hospitalist at [facility] updated patient's symptoms test results cardiology recommendations agrees with transfer Vital Signs Vital signs: Vital Signs - 8 hr 11/01/19 11:16 11/01/19 11:30 11/01/19 11:40 Temperature 98.0 F Pulse Rate 51 L 43 L 33 L Respiratory Rate 16 16 18 Blood Pressure 85/46 L Blood Pressure [Left Arm] 107/55 L 99/52 L Pulse Oximetry 99 100 100 11/01/19 11:50 11/01/19 12:00 11/01/19 12:15 Temperature Pulse Rate 34 L 33 L 33 L Respiratory Rate 14 16 18 Blood Pressure Blood Pressure [Left Arm] 109/57 L 107/57 L 104/55 L Pulse Oximetry 100 95 11/01/19 12:30 11/01/19 12:45 11/01/19 13:00 Temperature Pulse Rate 33 L 37 L 32 L Respiratory Rate 24 24 22 Blood Pressure Blood Pressure [Left Arm] 110/55 L 109/65 115/55 L Pulse Oximetry 96 95 95 11/01/19 13:21 11/01/19 13:36 11/01/19 15:17 Temperature Pulse Rate 29 L 58 L 44 L Respiratory Rate 15 16 22 Blood Pressure Blood Pressure [Left Arm] 100/59 L 148/73 H 139/63 Pulse Oximetry 96 96 97 MDM - Chest Pain Lab Data Attestation: I reviewed the patient's lab results. Result diagrams: 11/01/19 11:20 11/01/19 11:20 Labs: Lab Results 11/01/19 11/01/19 11/01/19 Range/Units 11:15 11:20 11:20 WBC 7.4 (4.5-11.0) X10^3/uL RBC 4.02 (4.0-5.2) X10^6/uL Hgb 12.5 (12.0-16.0) g/dL Hct 36.8 (36-46) % MCV 91.6 (80-100) fL MCH 31.0 (26-34) PG MCHC 33.9 (30-36) % RDW 12.8 (11.6-14.8) % Plt Count 218 (150-400) X10^3/uL Neut % (Auto) 68.9 (50-75) % Lymph % (Auto) 22.5 L (25-40) % Phelps % (Auto) 6.0 (3-14) % Eos % (Auto) 1.9 L (2-4) % Baso % (Auto) 0.7 (0-2) % Neut # (Auto) 5100 (6542-9267) /uL Lymph # (Auto) 1700 (8357-9018) /uL Phelps # (Auto) 400 (0-900) /uL Eos # (Auto) 100 (0-450) /uL Baso # (Auto) 100 (0-100) /uL PT 11.2 (10.1-12.7) SECONDS INR 1.0 (0.9-1.3) APTT 31 D (26.4-36.2) SECONDS D-Dimer 314 H (<230) ng/mL Sodium (137-145) mmol/L Potassium (3.4-5.1) mmol/L Chloride (98-107) mmol/L Carbon Dioxide (22-32) mmol/L BUN (7-17) mg/dL Creatinine (0.52-1.04) mg/dL Estimated GFR (>60) mL/min BUN/Creatinine Ratio (6-22) Glucose (70-100) mg/dL Lactate 0.9 (0.7-2.1) mmol/L Calcium (8.4-10.2) mg/dL Total Bilirubin (0.2-1.3) mg/dL AST (14-36) IU/L ALT (<35) IU/L Alkaline Phosphatase (38-126) U/L Total Creatine Kinase (30-135) U/L CK-MB (CK-2) CK-MB (CK-2) Rel Index Troponin I (0.01-0.034) ng/mL NT-Pro-B Natriuret Pep (<125) pg/mL Total Protein (6.3-8.2) g/dL Albumin (3.5-5.0) g/dL Globulin (1.7-4.1) g/dL Albumin/Globulin Ratio (1.0-2.8) Lipase (23-300) U/L TSH (0.47-4.68) uIU/mL Serum , Qual (Negative) 11/01/19 11/01/19 11/01/19 Range/Units 11:20 11:20 11:20 WBC (4.5-11.0) X10^3/uL RBC (4.0-5.2) X10^6/uL Hgb (12.0-16.0) g/dL Hct (36-46) % MCV (80-100) fL MCH (26-34) PG MCHC (30-36) % RDW (11.6-14.8) % Plt Count (150-400) X10^3/uL Neut % (Auto) (50-75) % Lymph % (Auto) (25-40) % Phelps % (Auto) (3-14) % Eos % (Auto) (2-4) % Baso % (Auto) (0-2) % Neut # (Auto) (3524-2112) /uL Lymph # (Auto) (9940-6892) /uL Phelps # (Auto) (0-900) /uL Eos # (Auto) (0-450) /uL Baso # (Auto) (0-100) /uL PT (10.1-12.7) SECONDS INR (0.9-1.3) APTT (26.4-36.2) SECONDS D-Dimer (<230) ng/mL Sodium 136 L (137-145) mmol/L Potassium 4.6 (3.4-5.1) mmol/L Chloride 100 (98-107) mmol/L Carbon Dioxide 25 (22-32) mmol/L BUN 14 (7-17) mg/dL Creatinine 0.70 (0.52-1.04) mg/dL Estimated GFR > 60.0 (>60) mL/min BUN/Creatinine Ratio 20.0 (6-22) Glucose 93 (70-100) mg/dL Lactate (0.7-2.1) mmol/L Calcium 10.0 (8.4-10.2) mg/dL Total Bilirubin 0.4 (0.2-1.3) mg/dL AST 30 (14-36) IU/L ALT 20 (<35) IU/L Alkaline Phosphatase 60 (38-126) U/L Total Creatine Kinase 43 (30-135) U/L CK-MB (CK-2) TNP CK-MB (CK-2) Rel Index TNP Troponin I < 0.012 (0.01-0.034) ng/mL NT-Pro-B Natriuret Pep 433 H (<125) pg/mL Total Protein 8.0 (6.3-8.2) g/dL Albumin 4.8 (3.5-5.0) g/dL Globulin 3.2 (1.7-4.1) g/dL Albumin/Globulin Ratio 1.5 (1.0-2.8) Lipase 26 (23-300) U/L TSH 1.51 (0.47-4.68) uIU/mL Serum , Qual (Negative) 11/01/19 Range/Units 11:20 WBC (4.5-11.0) X10^3/uL RBC (4.0-5.2) X10^6/uL Hgb (12.0-16.0) g/dL Hct (36-46) % MCV (80-100) fL MCH (26-34) PG MCHC (30-36) % RDW (11.6-14.8) % Plt Count (150-400) X10^3/uL Neut % (Auto) (50-75) % Lymph % (Auto) (25-40) % Phelps % (Auto) (3-14) % Eos % (Auto) (2-4) % Baso % (Auto) (0-2) % Neut # (Auto) (5044-6407) /uL Lymph # (Auto) (7517-2048) /uL Phelps # (Auto) (0-900) /uL Eos # (Auto) (0-450) /uL Baso # (Auto) (0-100) /uL PT (10.1-12.7) SECONDS INR (0.9-1.3) APTT (26.4-36.2) SECONDS D-Dimer (<230) ng/mL Sodium (137-145) mmol/L Potassium (3.4-5.1) mmol/L Chloride (98-107) mmol/L Carbon Dioxide (22-32) mmol/L BUN (7-17) mg/dL Creatinine (0.52-1.04) mg/dL Estimated GFR (>60) mL/min BUN/Creatinine Ratio (6-22) Glucose (70-100) mg/dL Lactate (0.7-2.1) mmol/L Calcium (8.4-10.2) mg/dL Total Bilirubin (0.2-1.3) mg/dL AST (14-36) IU/L ALT (<35) IU/L Alkaline Phosphatase (38-126) U/L Total Creatine Kinase (30-135) U/L CK-MB (CK-2) CK-MB (CK-2) Rel Index Troponin I (0.01-0.034) ng/mL NT-Pro-B Natriuret Pep (<125) pg/mL Total Protein (6.3-8.2) g/dL Albumin (3.5-5.0) g/dL Globulin (1.7-4.1) g/dL Albumin/Globulin Ratio (1.0-2.8) Lipase (23-300) U/L TSH (0.47-4.68) uIU/mL Serum , Qual Negative (Negative) Imaging Data Chest x-ray: Radiologist's Impression: PROCEDURE: XR CHEST 1V INDICATIONS: chest pain TECHNIQUE: One view of the chest was acquired. COMPARISON: None. FINDINGS: Surgical changes and devices: None. Lungs and pleura: Lungs are clear. No pleural effusions or pneumothorax. Mediastinum: Mediastinal contours appear normal. Heart size is normal. Bones and chest wall: No suspicious bony lesions. Overlying soft tissues appear unremarkable. IMPRESSION: No acute cardiopulmonary abnormality. Dictated by: Dave Nuñez M.D. on 11/01/2019 at 12:01 CT scan - chest: Radiologist's Impression: PROCEDURE: CT ANGIO CHEST PE PROTOCOL INDICATIONS: so with recent neck surgery TECHNIQUE: After the administration of intravenous contrast, 2 mm thick sections acquired from the pulmonary apices to the posterior costophrenic angles. 3-dimensional maximum intensity projection (MIP) coronal and sagittal reformats were then acquired through the thorax. For radiation dose reduction, the following was used: automated exposure control, adjustment of mA and/or kV according to patient size. COMPARISON: [facility], CT, CT ABDOMEN PELVIS W CON, 05/13/2019, 21:15. FINDINGS: Image quality: Excellent. Diagnostic to the level of the subsegmental pulmonary arteries. Pulmonary arteries: Pulmonary arteries are normal in size, and demonstrate no intraluminal filling defects to suggest pulmonary embolism. Lungs and pleura: Minimal dependent atelectasis. No significant acute airspace opacity. 3 mm pulmonary nodule along the left major fissure, (5/22) likely a small intrapulmonary lymph node. No pleural effusions or pneumothorax. Central and peripheral airways are patent. Mediastinum: Heart size is normal, without pericardial effusion. No mediastinal or hilar adenopathy. Thoracic aorta is normal in caliber and enhancement. Esophagus is normal in caliber, without hiatal hernia. Bones and chest wall: ACDF. No suspicious bony lesions. Ribs and thoracic spine appear intact throughout. Thyroid gland is unremarkable. No axillary or supraclavicular adenopathy. Abdomen: Visualized upper abdominal solid organs appear normal in the early arterial phase of enhancement. Probable hepatic steatosis. IMPRESSION: 1. No pulmonary embolism. 2. No significant acute airspace opacity. Dictated by: Dave Nuñez M.D. on 11/01/2019 at 13:01 ECG Data Attestation: I personally reviewed and interpreted this ECG as follows: Prior ECG tracings: not available for review Interpretation: Normal sinus rhythm rate 42 p.r. interval 201 QRS [address] elevation depression 1st degree AV block noted MDM Narrative Medical decision making narrative: Patient persistently heart rate 29 does 35. Blood pressure did improve after IV fluids. CT is negative for any pulmonary embolism. The patient continues to be symptomatic she is given 0.5 mg of atropine heart rate improved up to 51 in symptoms also improved. She appears to have a first-degree AV block only it does not appear to be a higher block. She is currently not on any medications to cause bradycardia. Repeat EKG continues to show first-degree AV block. Patient complains of pounding headache after atrophy. Patient transferred to [facility] Critical Care Time Critical Care Time Critical Care Time: Yes Total Critical Care Time: 45 Attestation: The high probability of a clinically significant, sudden or life threatening deterioration of the [cardiovascular] system(s) required my full and direct attention, intervention and personal management. The aggregate critical care time was [45] minutes. This time is in addition to time spent performing reported procedures but includes the following: [x] Data Review and interpretation [x] Patient assessment and monitoring of vital signs [x] Documentation [x] Medication orders and management Discharge Plan Departure Patient Disposition: [facility] Clinical Impression: Symptomatic bradycardia Prescriptions: No Action fluoxetine 40 mg capsule 40 mg PO DAILY RF: 0 tizanidine 2 mg tablet 4 mg PO BID RF: 0 levothyroxine 75 mcg tablet 75 mcg PO DAILY RF: 0 gabapentin 300 mg capsule 900 mg PO TID RF: 0 multivitamin Tablet 1 tab PO DAILY RF: 0 rizatriptan 10 mg tablet,disintegrating 10 mg PO .ONCE RF: 0 hydrocodone-acetaminophen 5-325 mg tablet 1 tab PO Q4H PRN (Reason: Pain, Severe) RF: 0 estradiol 1 mg tablet 1 mg PO QPM RF: 0 naproxen 500 mg tablet,delayed release (DR/EC) 500 mg PO BID PRN (Reason: PAIN) RF: 0 Referrals: Aroldo Hernandez DO [Primary Care Provider] -
--- NOTE | 2019-11-01 11:44 | PC.NURSE ---
c/o shortness of breath, light headed and dizzy I have to hold onto mallory to walk x 3 days. Apple watch alarming that her heart rate was below 40. Went to doctor today who sent to ED for further evaluation.
[2019-11-01 11:53] LABS: Lactate (Lactic Acid) 0.9 mmol/L (0.7-2.1)
[2019-11-01 11:54] LABS: Alanine Aminotransferase 20 IU/L (<35); Albumin 4.8 g/dL (3.5-5.0); Albumin Globulin Ratio 1.5 (1.0-2.8); Alkaline Phosphatase 60 U/L (38-126); Aspartate Aminotransferase 30 IU/L (14-36); Bilirubin Total 0.4 mg/dL (0.2-1.3); Blood Urea Nitrogen 14 mg/dL (7-17); Carbon Dioxide 25 mmol/L (22-32); Chloride 100 mmol/L (98-107); Creatine Kinase 43 U/L (30-135); Estimated Glomerular Filt Rate > 60.0 mL/min (>60); Globulin 3.2 g/dL (1.7-4.1); Glucose 93 mg/dL (70-100); HEMOLYSIS 20 (0-50); Lipase 26 U/L (23-300); Potassium 4.6 mmol/L (3.4-5.1); Sodium 136 mmol/L (137-145)
[2019-11-01 11:56] LABS: Prothrombin Time 11.2 SECONDS (10.1-12.7)
[2019-11-01 11:59] LABS: D Dimer 314 ng/mL (<230); PTT Partial Thromboplastin Tim 31 SECONDS (26.4-36.2)
[2019-11-01 12:03] LABS: NT-proBNP (BNP-Adult 18+) 433 pg/mL (<125)
[2019-11-01 12:05] LABS: Troponin I < 0.012 ng/mL (0.01-0.034)
[2019-11-01 12:33] LABS: Thyroid Stimulating Hormone 1.51 uIU/mL (0.47-4.68)
[2019-11-01 13:02] LABS: Pregnancy Test Serum,Qual Negative (Negative)
[2019-11-01] MEDS: ATROPINE 1 MG/10 ML SYRINGE 0.5 MG IV (13:27)
[2019-11-01] MEDS: SODIUM CHLORIDE 0.9% 1,000 ML 100 ML IV (13:40)
== END 2019-11-01 15:31 | disposition short-term general hospital (02) ==
PROVIDERS: Emergency Provider Emergency Medicine; PCP Family Medicine
DX: R00.1 Bradycardia, unspecified (principal); R07.9 Chest pain, unspecified
CPT/HCPCS: 36415; 71045; 71275; 80053; 82550; 83605; 83690; 83880; 84443; 84484; 84703; 85025; 85379; 85610; 85730; 87040; 93005; 96361; 96374; 99285; 99291; J0461

== ENCOUNTER → 2020-04-07 16:12 | Outpatient (CLI) | payer BC, SELFPAY ==
[2019-05-14 00:44] VITALS: BMI 25.7
[2020-04-10 18:11] LABS: COVID19 Sendout Not Detected (Not Detected)
== END ==
PROVIDERS: PCP Family Medicine; Visit Provider Physician Assistant
DX: R05 Cough (principal); R51 Headache
CPT/HCPCS: 87635

== ENCOUNTER → 2020-05-23 11:34 | Outpatient (CLI) | payer BC, SELFPAY ==
[2020-05-23 10:37] VITALS: BMI 25.7
[2020-05-26 07:36] LABS: COVID19 Sendout Not Detected (Not Detected)
== END ==
PROVIDERS: PCP Family Medicine; Visit Provider Nurse Practitioner
DX: R06.02 Shortness of breath (principal); R50.9 Fever, unspecified; R52 Pain, unspecified
CPT/HCPCS: 87635

== ENCOUNTER 2020-05-27 14:58 | Emergency (ER) | payer BC, SELFPAY ==
[2020-05-23 10:37] VITALS: BMI 25.7
[2020-05-27] VITALS (7 sets, daily range): BP systolic 104–131; BP diastolic 53–60; PULSE 66–80; RESP 14–24; TEMP 36.9; O2SAT 94–100; BMI 21.2
[2020-05-27] MEDS: SODIUM CHLORIDE 0.9% 1,000 ML 1000 ML IV (16:00)
[2020-05-27] MEDS: METOCLOPRAMIDE 10 MG/2 ML INJ IV (16:00)
[2020-05-27] MEDS: KETOROLAC 60 MG/2 ML VIAL 30 MG IV (16:00)
[2020-05-27] MEDS: diphenhydrAMINE 50 MG/ML VIAL 25 MG IV (16:01)
--- NOTE | 2020-05-27 16:02 | ED_ITS ---
HPI - Neuro Symptoms/Deficit <DENYS RajputBC - Last Filed: 05/27/20 19:25> General Chief Complaint: Neuro Symptoms/Deficit Stated Complaint: migraine past wk, thinks she had a stroke Time Seen by Provider: 05/27/20 15:27 Source: patient Mode of arrival: Ambulatory Limitations: no limitations History of Present Illness HPI Narrative: The patient is a 44-year-old female former smoker with history of chronic pain who presents with a chief complaint of a migraine for the past week. She states it started on , gradual onset, no thunderclap sensation. She took her Triptan on , but has not take and it since. She has tried p.o. Dilaudid. She complains of photophobia and phonophobia, she states she feels as though it is ?hard to think,and that her vision is off. She denies focal weakness. Denies any slurred speech but states that sometimes she feels like she is talking slow. She does have a history of migraines and feels as though this is a bad one. She states she called her primary care provider to be seen, was told that he would not see her without a coronavirus test, so she was tested at the respiratory clinic and then got the negative result today. She states she called her PCM back, but he said he is concerned she is having a stroke. On Anticoagulants: No Related Data Home Medications Medication Instructions Recorded Confirmed fluoxetine 40 mg PO DAILY 05/09/19 11/01/19 gabapentin 900 mg PO TID 05/09/19 11/01/19 levothyroxine 75 mcg PO DAILY 05/09/19 11/01/19 multivitamin 1 tab PO DAILY 05/09/19 11/01/19 tizanidine 4 mg PO BID 05/09/19 11/01/19 rizatriptan 10 mg PO .ONCE 07/17/19 11/01/19 estradiol 1 mg PO QPM 11/01/19 11/01/19 hydrocodone-acetaminophen 1 tab PO Q4H PRN 11/01/19 11/01/19 naproxen 500 mg PO BID PRN 11/01/19 11/01/19 Allergies Allergy/AdvReac Type Severity Reaction Status Date / Time dopamine Allergy Verified 05/27/20 15:29 Review of Systems <CASTRO Rajput - Last Filed: 05/27/20 19:25> Review of Systems Narrative: GENERAL: Denies chills, fatigue, malaise, fever, sweats. HEENT: Denies sinus pain, ear pain, sore throat, difficulty swallowing, dizziness. RESPIRATORY: Denies dyspnea, cough, wheezing, hemoptysis, sputum. CARDIOVASCULAR: Denies chest pain, palpitations, orthopnea, edema, GASTROINTESTINAL: Denies nausea, vomiting, abdominal pain, diarrhea, constipation, melena. : Denies dysuria, frequency, incontinence, hematuria, urinary retention. MUSCULOSKELETAL: denies weakness, joint pain, or bony pain SKIN: Denies rash, skin lesions, or other NEUROLOGIC: See HPI PSYCHIATRIC: No concerning psychosocial issues. 12 point review of systems is negative except for those stated above Patient History <CASTRO Rajput - Last Filed: 05/27/20 19:25> Medical History Bladder prolapse, female, acquired (Chronic) History of renal calculi (Resolved) Surgical History History of laparoscopy (Acute ~05/13/19) Status post appendectomy (Acute) Status post cholecystectomy (Resolved) Status post hysterectomy (Resolved) Social History household members: spouse Smoking Status: Former smoker alcohol intake: current substance use type: marijuana Smoking Status: Former smoker tobacco type: cigarettes alcohol intake frequency: holidays/special occasions only Alcohol type: wine Substance Use Type: marijuana Exam <CASTRO Rajput - Last Filed: 05/27/20 19:25> Narrative Exam Narrative: GENERAL: This is a well-nourished, well-developed patient, no acute distress HEAD: Atraumatic. Normocephalic. No temporal or scalp tenderness. EYES: Pupils equal round and reactive. Extraocular motions intact. No scleral icterus. No injection or drainage. No nystagmus noted. ENT: Nose without bleeding, purulent drainage or septal hematoma. Throat without erythema, tonsillar hypertrophy or exudate. Uvula midline. Airway patent. NECK: Trachea midline. No JVD or lymphadenopathy. Supple, nontender, no meningeal signs. CARDIOVASCULAR: Regular rate and rhythm RESPIRATORY: Clear to auscultation. Breath sounds equal bilaterally. No wheezes, rales, or rhonchi. No cough. No increased respiratory effort. No accessory m uscle use. GASTROINTESTINAL: Abdomen soft, non-tender, nondistended. No hepato- splenomegaly, or palpable masses. No guarding. EXTREMITIES: No clubbing, cyanosis, or edema. No joint tenderness, effusion, or edema noted. Strength is equal upper lower extremities bilaterally. Positive pedal pulses. BACK: Nontender without deformity or crepitance. No flank tenderness. NEURO: AOx3. Clear speech. No gross cranial nerve deficit. NIH of 0. GCS 15 following commands, no ataxia noted, stable gait SKIN: No rash or erythema. Initial Vital Signs Initial Vital Signs: Vital Signs Temperature 98.5 F 05/27/20 15:23 Pulse Rate 72 05/27/20 15:23 Respiratory Rate 14 05/27/20 15:23 Blood Pressure 131/60 05/27/20 15:23 Pulse Oximetry 100 05/27/20 15:23 <Noreen Verde DO - Last Filed: 05/28/20 10:27> Initial Vital Signs Initial Vital Signs: Vital Signs Temperature 98.5 F 05/27/20 15:23 Pulse Rate 72 05/27/20 15:23 Respiratory Rate 14 05/27/20 15:23 Blood Pressure 131/60 05/27/20 15:23 Pulse Oximetry 100 05/27/20 15:23 Scores <DC Rajput-BC - Last Filed: 05/27/20 19:25> GCS Atkinson coma scale eye opening: Spontaneous Mike coma scale verbal response: Orientated Atkinson coma scale motor response: Obey commands Mike coma scale total score: 15 NIH Stroke Scale Level of Conciousness: Alert, keenly responsive Ask month/age: Answers both questions correctly. Open/close eyes, close hand: Performs both tasks correctly Best gaze horizontal: Normal Visual alfaro: No visual loss Facial palsy: Normal symetrical movement Left arm drift: No drift for full 10 sec Right arm drift: No drift for full 10 sec Left leg drift: No drift for full 10 sec Right leg drift: No drift for full 10 sec Limb ataxia: Absent Sensory on face/arms/legs: Normal, no sensory loss Best language: No aphasia, normal Dysarthria: Normal Extinction or inattention: No abnormality Total NIH Stroke scale score: 0 Course <DC Rajput-BC - Last Filed: 05/27/20 19:25> Orders Ordered: Discontinued Medications Diphenhydramine HCl (Benadryl) 25 mg IV NOW ONE Stop: 05/27/20 15:54 Last Admin: 05/27/20 16:01 Dose: 25 mg Documented by: TEDDY Sodium Chloride (Normal Saline 0.9%) 1,000 mls @ 1,000 mls/hr IV BOLUS ONE Stop: 05/27/20 16:51 Last Infusion: 05/27/20 17:24 Dose: 0 mls/hr Documented by: Admin: 05/27/20 16:00 Dose: 1,000 mls/hr Documented by: TEDDY Ketorolac Tromethamine (Toradol) 30 mg IV NOW ONE Stop: 05/27/20 15:54 Last Admin: 05/27/20 16:00 Dose: 30 mg Documented by: TEDDY Metoclopramide HCl (Reglan) 10 mg IV NOW ONE Stop: 05/27/20 15:54 Last Admin: 05/27/20 16:00 Dose: 10 mg Documented by: TEDDY Consultations Consultation #1: The patient does have an Tracey report, which was consulted. She received 8 2 mg hydromorphone tablets on 05/25, 224 tablets of 5-325mg of hydrocodone/acetaminophen on 05/23,, 120 tablets of 1 mg lorazepam on 05/21, 30 tablets of 10 mg zolpidem on 05/06, 168 tablets of 5/325 hydrocodone/acetaminophen on 05/01, 120 tablets of 1 mg lorazepam on 04/26. Time: 16:04 Vital Signs Vital signs: Vital Signs - 8 hr 05/27/20 15:23 05/27/20 17:10 05/27/20 17:30 Temperature 98.5 F Pulse Rate 72 77 74 Respiratory Rate 14 18 18 Blood Pressure 131/60 104/53 L Pulse Oximetry 100 100 98 05/27/20 18:00 05/27/20 18:30 05/27/20 18:54 Temperature Pulse Rate 66 67 80 Respiratory Rate 14 17 24 Blood Pressure 109/57 L Pulse Oximetry 99 100 97 05/27/20 18:59 Temperature Pulse Rate 80 Respiratory Rate Blood Pressure 109/57 L Pulse Oximetry 94 <Noreen Verde DO - Last Filed: 05/28/20 10:27> Orders Ordered: Discontinued Medications Diphenhydramine HCl (Benadryl) 25 mg IV NOW ONE Stop: 05/27/20 15:54 Last Admin: 05/27/20 16:01 Dose: 25 mg Documented by: TEDDY Sodium Chloride (Normal Saline 0.9%) 1,000 mls @ 1,000 mls/hr IV BOLUS ONE Stop: 05/27/20 16:51 Last Infusion: 05/27/20 17:24 Dose: 0 mls/hr Documented by: Admin: 05/27/20 16:00 Dose: 1,000 mls/hr Documented by: TEDDY Ketorolac Tromethamine (Toradol) 30 mg IV NOW ONE Stop: 05/27/20 15:54 Last Admin: 05/27/20 16:00 Dose: 30 mg Documented by: TEDDY Metoclopramide HCl (Reglan) 10 mg IV NOW ONE Stop: 05/27/20 15:54 Last Admin: 05/27/20 16:00 Dose: 10 mg Documented by: TEDDY Vital Signs Vital signs: Vital Signs - 8 hr 05/27/20 15:23 05/27/20 17:10 05/27/20 17:30 Temperature 98.5 F Pulse Rate 72 77 74 Respiratory Rate 14 18 18 Blood Pressure 131/60 104/53 L Pulse Oximetry 100 100 98 05/27/20 18:00 05/27/20 18:30 05/27/20 18:54 Temperature Pulse Rate 66 67 80 Respiratory Rate 14 17 24 Blood Pressure 109/57 L Pulse Oximetry 99 100 97 05/27/20 18:59 Temperature Pulse Rate 80 Respiratory Rate Blood Pressure 109/57 L Pulse Oximetry 94 MDM - Neuro Symptoms/Deficit <CASTRO Rajput - Last Filed: 05/27/20 19:25> Lab Data Result diagrams: 05/27/20 15:28 05/27/20 15:28 Labs: Lab Results 05/27/20 05/27/20 05/27/20 Range/Units 15:28 15:28 15:28 WBC 5.5 (4.5-11.0) X10^3/uL RBC 4.43 (4.0-5.2) X10^6/uL Hgb 14.1 (12.0-16.0) g/dL Hct 41.4 (36-46) % MCV 93.4 (80-100) fL MCH 31.8 (26-34) PG MCHC 34.0 (30-36) % RDW 12.7 (11.6-14.8) % Plt Count 256 (150-400) X10^3/uL Neut % (Auto) 57.8 (50-75) % Lymph % (Auto) 28.4 (25-40) % [place] % (Auto) 9.1 (3-14) % Eos % (Auto) 3.9 (2-4) % Baso % (Auto) 0.8 (0-2) % Neut # (Auto) 3100 (2228-1644) /uL Lymph # (Auto) 1600 (5806-6874) /uL [place] # (Auto) 500 (0-900) /uL Eos # (Auto) 200 (0-450) /uL Baso # (Auto) 0 (0-100) /uL PT 11.7 (10.1-12.7) SECONDS INR 1.0 (0.9-1.3) APTT 36 D (26.4-36.2) SECONDS Sodium 138 (137-145) mmol/L Potassium 4.0 (3.4-5.1) mmol/L Chloride 100 (98-107) mmol/L Carbon Dioxide 28 (22-32) mmol/L BUN 19 H (7-17) mg/dL Creatinine 0.80 (0.52-1.04) mg/dL Estimated GFR > 60.0 (>60) mL/min BUN/Creatinine Ratio 23.8 H (6-22) Glucose 133 H (70-100) mg/dL Calcium 10.1 (8.4-10.2) mg/dL Total Bilirubin 0.5 (0.2-1.3) mg/dL AST 27 (14-36) IU/L ALT 14 (<35) IU/L Alkaline Phosphatase 69 (38-126) U/L Total Protein 8.3 H (6.3-8.2) g/dL Albumin 5.1 H (3.5-5.0) g/dL Globulin 3.2 (1.7-4.1) g/dL Albumin/Globulin Ratio 1.6 (1.0-2.8) U Opiates 300ng/mL cut (Negative) Ur Oxycodone Screen (Negative) Urine Methadone Screen (Negative) Ur Barbiturates Screen (Negative) U Tricyclic Antidepress (Negative) Ur Phencyclidine Scrn (Negative) Ur Amphetamines Screen (Negative) U Methamphetamines Scrn (Negative) Ur MDMA Scrn (Ecstasy) (Negative) U Benzodiazepines Scrn (Negative) Urine Cocaine Screen (Negative) U Marijuana (THC) Screen (Negative) 05/27/20 Range/Units 16:49 WBC (4.5-11.0) X10^3/uL RBC (4.0-5.2) X10^6/uL Hgb (12.0-16.0) g/dL Hct (36-46) % MCV (80-100) fL MCH (26-34) PG MCHC (30-36) % RDW (11.6-14.8) % Plt Count (150-400) X10^3/uL Neut % (Auto) (50-75) % Lymph % (Auto) (25-40) % [place] % (Auto) (3-14) % Eos % (Auto) (2-4) % Baso % (Auto) (0-2) % Neut # (Auto) (7781-5793) /uL Lymph # (Auto) (2839-2491) /uL [place] # (Auto) (0-900) /uL Eos # (Auto) (0-450) /uL Baso # (Auto) (0-100) /uL PT (10.1-12.7) SECONDS INR (0.9-1.3) APTT (26.4-36.2) SECONDS Sodium (137-145) mmol/L Potassium (3.4-5.1) mmol/L Chloride (98-107) mmol/L Carbon Dioxide (22-32) mmol/L BUN (7-17) mg/dL Creatinine (0.52-1.04) mg/dL Estimated GFR (>60) mL/min BUN/Creatinine Ratio (6-22) Glucose (70-100) mg/dL Calcium (8.4-10.2) mg/dL Total Bilirubin (0.2-1.3) mg/dL AST (14-36) IU/L ALT (<35) IU/L Alkaline Phosphatase (38-126) U/L Total Protein (6.3-8.2) g/dL Albumin (3.5-5.0) g/dL Globulin (1.7-4.1) g/dL Albumin/Globulin Ratio (1.0-2.8) U Opiates 300ng/mL cut Positive H (Negative) Ur Oxycodone Screen Negative (Negative) Urine Methadone Screen Negative (Negative) Ur Barbiturates Screen Negative (Negative) U Tricyclic Antidepress Negative (Negative) Ur Phencyclidine Scrn Negative (Negative) Ur Amphetamines Screen Negative (Negative) U Methamphetamines Scrn Negative (Negative) Ur MDMA Scrn (Ecstasy) Negative (Negative) U Benzodiazepines Scrn Negative (Negative) Urine Cocaine Screen Negative (Negative) U Marijuana (THC) Screen Negative (Negative) Urine Dip Bedside Urine Glucose Negative Bedside Urine Bilirubin + 1 Bedside Urine Ketone +/- 5 Urine Specific [place] 1.025 Bedside Urine Occult Blood - Negative Bedside Urine pH 5.0 Bedside Urine Protein +/- 15 Bedside Urine Urobilinogen +/- 1mg Bedside Urine Nitrite - Negative Bedside Urine Leukocytes - Negative Esterase MDM Narrative Medical decision making narrative: The patient is a 44-year-old female who presents with a chief complaint of migraine symptoms for 1 week. She feels much improved after the above-stated therapies, states that her pain is decreased into like to go home and sleep. Given the patient's concerns of stroke, any chest was performed by myself and nursing, and we both received stroke scores of 0. I discussed the possibility of doing a CT, but patient elected to hold off at this point time given that the patient is feeling better, any chest of 0 etcetera. I did discuss at length the importance of follow-up with primary care provider for re-evaluation and that they can come back to the emergency department for any acute concerns such as concern of heart attack, stroke. I did discuss with the patient and her that if they were concerned about stroke the patient needs to be seen immediately rather than 1 week after symptoms started. However the fact that the patient's symptoms improved greatly after administration of headache cocktail is reassuring, her photophobia and phonophobia recovered, she felt as though her vision was improved and that she was thinking quicker and more accurately. Additionally reassuring that her headache was gradual onset. Of note I did review the patient's tracey report, illustrating dispenses of zolpidem, lorazepam, hydrocodone/acetaminophen and hydromorphone recently. The patient only tested positive for opiates today. However these medications could be leading to a feeling of being sluggish etcetera. I discussed at length coming back to the emergency department the importance of follow-up with primary care provider in the next 24-48 hours. Patient and have no questions or concerns upon discharge and state understanding of return precautions as well as follow-up care. <Noreen Verde, DO - Last Filed: 05/28/20 10:27> Lab Data Labs: Lab Results 05/27/20 05/27/20 05/27/20 Range/Units 15:28 15:28 15:28 WBC 5.5 (4.5-11.0) X10^3/uL RBC 4.43 (4.0-5.2) X10^6/uL Hgb 14.1 (12.0-16.0) g/dL Hct 41.4 (36-46) % MCV 93.4 (80-100) fL MCH 31.8 (26-34) PG MCHC 34.0 (30-36) % RDW 12.7 (11.6-14.8) % Plt Count 256 (150-400) X10^3/uL Neut % (Auto) 57.8 (50-75) % Lymph % (Auto) 28.4 (25-40) % [place] % (Auto) 9.1 (3-14) % Eos % (Auto) 3.9 (2-4) % Baso % (Auto) 0.8 (0-2) % Neut # (Auto) 3100 (4247-5214) /uL Lymph # (Auto) 1600 (3652-4934) /uL [place] # (Auto) 500 (0-900) /uL Eos # (Auto) 200 (0-450) /uL Baso # (Auto) 0 (0-100) /uL PT 11.7 (10.1-12.7) SECONDS INR 1.0 (0.9-1.3) APTT 36 D (26.4-36.2) SECONDS Sodium 138 (137-145) mmol/L Potassium 4.0 (3.4-5.1) mmol/L Chloride 100 (98-107) mmol/L Carbon Dioxide 28 (22-32) mmol/L BUN 19 H (7-17) mg/dL Creatinine 0.80 (0.52-1.04) mg/dL Estimated GFR > 60.0 (>60) mL/min BUN/Creatinine Ratio 23.8 H (6-22) Glucose 133 H (70-100) mg/dL Calcium 10.1 (8.4-10.2) mg/dL Total Bilirubin 0.5 (0.2-1.3) mg/dL AST 27 (14-36) IU/L ALT 14 (<35) IU/L Alkaline Phosphatase 69 (38-126) U/L Total Protein 8.3 H (6.3-8.2) g/dL Albumin 5.1 H (3.5-5.0) g/dL Globulin 3.2 (1.7-4.1) g/dL Albumin/Globulin Ratio 1.6 (1.0-2.8) U Opiates 300ng/mL cut (Negative) Ur Oxycodone Screen (Negative) Urine Methadone Screen (Negative) Ur Barbiturates Screen (Negative) U Tricyclic Antidepress (Negative) Ur Phencyclidine Scrn (Negative) Ur Amphetamines Screen (Negative) U Methamphetamines Scrn (Negative) Ur MDMA Scrn (Ecstasy) (Negative) U Benzodiazepines Scrn (Negative) Urine Cocaine Screen (Negative) U Marijuana (THC) Screen (Negative) 05/27/20 Range/Units 16:49 WBC (4.5-11.0) X10^3/uL RBC (4.0-5.2) X10^6/uL Hgb (12.0-16.0) g/dL Hct (36-46) % MCV (80-100) fL MCH (26-34) PG MCHC (30-36) % RDW (11.6-14.8) % Plt Count (150-400) X10^3/uL Neut % (Auto) (50-75) % Lymph % (Auto) (25-40) % [place] % (Auto) (3-14) % Eos % (Auto) (2-4) % Baso % (Auto) (0-2) % Neut # (Auto) (7654-7022) /uL Lymph # (Auto) (9887-8923) /uL [place] # (Auto) (0-900) /uL Eos # (Auto) (0-450) /uL Baso # (Auto) (0-100) /uL PT (10.1-12.7) SECONDS INR (0.9-1.3) APTT (26.4-36.2) SECONDS Sodium (137-145) mmol/L Potassium (3.4-5.1) mmol/L Chloride (98-107) mmol/L Carbon Dioxide (22-32) mmol/L BUN (7-17) mg/dL Creatinine (0.52-1.04) mg/dL Estimated GFR (>60) mL/min BUN/Creatinine Ratio (6-22) Glucose (70-100) mg/dL Calcium (8.4-10.2) mg/dL Total Bilirubin (0.2-1.3) mg/dL AST (14-36) IU/L ALT (<35) IU/L Alkaline Phosphatase (38-126) U/L Total Protein (6.3-8.2) g/dL Albumin (3.5-5.0) g/dL Globulin (1.7-4.1) g/dL Albumin/Globulin Ratio (1.0-2.8) U Opiates 300ng/mL cut Positive H (Negative) Ur Oxycodone Screen Negative (Negative) Urine Methadone Screen Negative (Negative) Ur Barbiturates Screen Negative (Negative) U Tricyclic Antidepress Negative (Negative) Ur Phencyclidine Scrn Negative (Negative) Ur Amphetamines Screen Negative (Negative) U Methamphetamines Scrn Negative (Negative) Ur MDMA Scrn (Ecstasy) Negative (Negative) U Benzodiazepines Scrn Negative (Negative) Urine Cocaine Screen Negative (Negative) U Marijuana (THC) Screen Negative (Negative) Urine Dip Bedside Urine Glucose Negative Bedside Urine Bilirubin + 1 Bedside Urine Ketone +/- 5 Urine Specific [place] 1.025 Bedside Urine Occult Blood - Negative Bedside Urine pH 5.0 Bedside Urine Protein +/- 15 Bedside Urine Urobilinogen +/- 1mg Bedside Urine Nitrite - Negative Bedside Urine Leukocytes - Negative Esterase Discharge Plan Departure Patient Disposition: Home Clinical Impression: Migraine Qualifiers: Migraine type: unspecified Status migrainosus presence: without status migrainosus Intractability: not intractable Qualified Code(s): G43.909 - Migraine, unspecified, not intractable, without status migrainosus Discharge Date/Time: 05/27/20 19:01 Instructions: DI for Migraine, DI for Headache Activity Restrictions/Additional Instructions: Thank you for trusting us with your care today. As I discussed we treated you for migraine today. Please go home and rest. As discussed, please follow-up with primary care provider in the next few days. Please rest and push fluids. As discussed, please come back to emergency department for any acute concerns. Prescriptions: No Action fluoxetine 40 mg capsule 40 mg PO DAILY RF: 0 tizanidine 2 mg tablet 4 mg PO BID RF: 0 levothyroxine 75 mcg tablet 75 mcg PO DAILY RF: 0 gabapentin 300 mg capsule 900 mg PO TID RF: 0 multivitamin Tablet 1 tab PO DAILY RF: 0 rizatriptan 10 mg tablet,disintegrating 10 mg PO .ONCE RF: 0 hydrocodone-acetaminophen 5-325 mg tablet 1 tab PO Q4H PRN (Reason: Pain, Severe) RF: 0 estradiol 1 mg tablet 1 mg PO QPM RF: 0 naproxen 500 mg tablet,delayed release (DR/EC) 500 mg PO BID PRN (Reason: PAIN) RF: 0 Referrals: Aroldo Hernandez DO [Primary Care Provider] - Stand Alone Forms: Work Release Note <Noreen Verde DO - Last Filed: 05/28/20 10:27> Cosign ED Attending Bhargavi Attestation: I was immediately available in the department for consultation. Documentation has been reviewed. I agree with assessment and plan.
[2020-05-27 16:03] LABS: Prothrombin Time 11.7 SECONDS (10.1-12.7)
[2020-05-27 16:05] LABS: PTT Partial Thromboplastin Tim 36 SECONDS (26.4-36.2)
[2020-05-27 16:07] LABS: Alanine Aminotransferase 14 IU/L (<35); Albumin 5.1 g/dL (3.5-5.0); Albumin Globulin Ratio 1.6 (1.0-2.8); Alkaline Phosphatase 69 U/L (38-126); Aspartate Aminotransferase 27 IU/L (14-36); BUN Creatinine Ratio 23.8 (6-22); Bilirubin Total 0.5 mg/dL (0.2-1.3); Blood Urea Nitrogen 19 mg/dL (7-17); Calcium 10.1 mg/dL (8.4-10.2); Carbon Dioxide 28 mmol/L (22-32); Chloride 100 mmol/L (98-107); Estimated Glomerular Filt Rate > 60.0 mL/min (>60); Globulin 3.2 g/dL (1.7-4.1); Glucose 133 mg/dL (70-100); HEMOLYSIS < 15 (0-50); Sodium 138 mmol/L (137-145); Total Protein 8.3 g/dL (6.3-8.2)
[2020-05-27 16:10] LABS: Add Manual Diff / Slide Review NO; Basophils Absolute Auto 0 /uL (0-100); Basophils Percent Auto 0.8 % (0-2); Eosinophils Absolute Auto 200 /uL (0-450); Eosinophils Percent Auto 3.9 % (2-4); Hematocrit 41.4 % (36-46); Hemoglobin 14.1 g/dL (12.0-16.0); Lymphocytes Absolute Auto 1600 /uL (1100-4500); Lymphocytes Percent Auto 28.4 % (25-40); Mean Corpuscular Hemoglobin 31.8 PG (26-34); Mean Corpuscular Volume 93.4 fL (80-100); Monocytes Absolute Auto 500 /uL (0-900); Monocytes Percent Auto 9.1 % (3-14); Neutrophils Absolute Auto 3100 /uL (1500-7000); Neutrophils Percent Auto 57.8 % (50-75); Platelet Count 256 X10^3/uL (150-400); Red Blood Cell Count 4.43 X10^6/uL (4.0-5.2); Red Cell Distribution Width 12.7 % (11.6-14.8); White Blood Cell Count 5.5 X10^3/uL (4.5-11.0)
[2020-05-27 17:14] LABS: Ur Creatinine Normal (Normal); Ur Specific Gravity Normal (Normal); Urine Cocaine Negative (Negative); Urine Tetrahydrocannabinol Negative (Negative); Urine pH Normal (Normal)
[2020-05-27 17:15] LABS: UR Morphine/Opiate cutoff 300 Positive (Negative); Urine Amphetamines Negative (Negative); Urine Barbiturates Negative (Negative); Urine Benzodiazepines Negative (Negative); Urine MDMA Negative (Negative); Urine Methadone Negative (Negative); Urine Methamphetamines Negative (Negative); Urine Oxycodone Negative (Negative); Urine Phencyclidine Negative (Negative); Urine Tricyclic Antidepressant Negative (Negative)
== END 2020-05-27 19:01 | disposition home or self-care (01) ==
PROVIDERS: Emergency Provider Nurse Practitioner Family; PCP Family Medicine
DX: G43.909 Migraine, unspecified, not intractable, without status migrainosus (principal)
CPT/HCPCS: 80053; 80305; 81003; 85025; 85610; 85730; 96361; 96374; 96375; 99283; 99284; J1200; J1885; J2765

== ENCOUNTER 2021-01-26 12:40 | Emergency (ER) | payer BC, SELFPAY ==
[2020-05-23 10:37] VITALS: BMI 25.7
[2021-01-26 12:47] VITALS: BP 112/53; PULSE 83; RESP 14; TEMP 36.8; O2SAT 98; BMI 22.3
--- NOTE | 2021-01-26 13:53 | PC.NURSE ---
patient amblitory into the ED today with spouse. patient reports having rlq pain. reports difficulties sleeping last night due to pain. states she has no gallbaldder or apendix. States additionaly she is feeling weak and having difficulties with coordination. states she has Lupus and a recent pacemaker related to lupus. She reports recent addiditon of ativan to her medications. she takes ativan and oxycodone on schedule. she speaks in a slow monotone voice.
[2021-01-26 13:54] LABS: Add Manual Diff / Slide Review NO; Basophils Absolute Auto 0 /uL (0-100); Basophils Percent Auto 0.7 % (0-2); Eosinophils Absolute Auto 200 /uL (0-450); Eosinophils Percent Auto 2.6 % (2-4); Hemoglobin 13.5 g/dL (12.0-16.0); Lymphocytes Absolute Auto 1100 /uL (1100-4500); Lymphocytes Percent Auto 18.8 % (25-40); Mean Corpuscular HGB Conc 34.5 % (30-36); Mean Corpuscular Hemoglobin 31.3 PG (26-34); Mean Corpuscular Volume 90.8 fL (80-100); Monocytes Absolute Auto 500 /uL (0-900); Monocytes Percent Auto 8.6 % (3-14); Neutrophils Absolute Auto 4100 /uL (1500-7000); Neutrophils Percent Auto 69.3 % (50-75); Platelet Count 200 X10^3/uL (150-400); Red Cell Distribution Width 13.4 % (11.6-14.8)
[2021-01-26 14:01] LABS: Acetaminophen < 10 ug/mL (10-30); Alanine Aminotransferase 14 IU/L (<35); Albumin 4.6 g/dL (3.5-5.0); Albumin Globulin Ratio 1.6 (1.0-2.8); Alkaline Phosphatase 66 U/L (38-126); Aspartate Aminotransferase 28 IU/L (14-36); BUN Creatinine Ratio 17.6 (6-22); Bilirubin Total 0.4 mg/dL (0.2-1.3); Blood Urea Nitrogen 12 mg/dL (7-17); Calcium 9.5 mg/dL (8.4-10.2); Carbon Dioxide 26 mmol/L (22-32); Chloride 107 mmol/L (98-107); Estimated Glomerular Filt Rate > 60.0 mL/min (>60); Ethanol (ETOH) < 10 mg/dL; Globulin 2.8 g/dL (1.7-4.1); Glucose 76 mg/dL (70-100); HEMOLYSIS < 15 (0-50); Lipase 36 U/L (23-300); Potassium 3.7 mmol/L (3.4-5.1); Salicylate < 1.0 mg/dL (<20); Sodium 142 mmol/L (137-145); Total Protein 7.4 g/dL (6.3-8.2)
--- NOTE | 2021-01-26 14:25 | ED_ITS ---
HPI - Neuro Symptoms/Deficit General Chief Complaint: Neuro Symptoms/Deficit Stated Complaint: PAIN RT SIDE TOWARDS BACK DELUSIONAL Time Seen by Provider: 01/26/21 13:35 Source: patient and family Mode of arrival: Ambulatory Limitations: no limitations History of Present Illness HPI Narrative: 45-year-old female with multiple medical problems to include lupus and a pacemaker secondary to bradycardia here for evaluation of multiple symptoms. She states she has a migraine headache. She has a history of migraines. Her current headache has been going on for 3 days. She takes a monthly intramuscular injection for her headaches which she states is the only medication that helps. She states that the pharmacy was out of the medication and so she has not been able to receive it. She was told that she was going to be would receive a L this evening. She also has right-sided flank pain that has been worsening over the past 24 hours. She has had a history of kidney stones. She thinks that this potentially feels like prior kidney stone but not exactly. She also feels like she is having ?electrical shocks? from her pacemaker going across the front of her chest. This has been going on since the rate was increased to 70 from 60. She has seen her stator winder about this and was told that this was a potential issue. Her rate was increased because she was continuing to have fatigue. She also reported low-grade fever at home. She she feels like that she is declining in health. Also has had some episodes of blurry vision. On Anticoagulants: Yes (ASA 81 mg daily) Related Data Home Medications Medication Instructions Recorded Confirmed fluoxetine 40 mg PO DAILY 05/09/19 11/01/19 gabapentin 900 mg PO TID 05/09/19 11/01/19 levothyroxine 75 mcg PO DAILY 05/09/19 11/01/19 multivitamin 1 tab PO DAILY 05/09/19 11/01/19 tizanidine 4 mg PO BID 05/09/19 11/01/19 rizatriptan 10 mg PO .ONCE 07/17/19 11/01/19 estradiol 1 mg PO QPM 11/01/19 11/01/19 hydrocodone-acetaminophen 1 tab PO Q4H PRN 11/01/19 11/01/19 naproxen 500 mg PO BID PRN 11/01/19 11/01/19 Allergies Allergy/AdvReac Type Severity Reaction Status Date / Time acetaminophen [From Tylenol] Allergy Intermediate Hives Verified 01/26/21 13:02 dopamine Allergy Verified 01/26/21 13:02 Review of Systems Constitutional Constitutional: Reports chills, Reports fatigue, Reports fever(s), Reports headache(s), Reports lethargy, Reports malaise and Reports weakness Eyes Eyes: Reports blurry vision ENT Ears, Nose, Mouth, and Throat: Denies vertigo, Reports dizziness, Reports headache(s), Reports disequilibrium and Denies sore throat Cardiovascular Cardiovascular: Denies chest pain and Denies dyspnea Respiratory Respiratory: Denies dyspnea Gastrointestinal Gastrointestinal: Reports abdominal pain, Denies nausea and Denies vomiting Genitourinary Genitourinary: Denies dysuria Genitourinary: Denies dysuria Musculoskeletal Comments: Right flank pain Integumentary/Breasts Skin/Breast: Denies rash Neurologic Neurologic: Reports behavioral changes, Denies vertigo, Reports dizziness, Reports headache(s), Reports disequilibrium and Reports weakness Psychiatric Psychiatric: Reports behavioral changes Endocrine Endocrine: Reports fatigue Hematologic/Lymphatic On Anticoagulants: Yes (ASA 81 mg daily) Allergic/Immunologic Allergic/Immunologic: Denies urticaria Patient History Medical History Bladder prolapse, female, acquired History of renal calculi Lupus Surgical History History of laparoscopy (~05/13/19) Status post appendectomy Status post cholecystectomy Status post hysterectomy Social History household members: spouse Smoking Status: Former smoker alcohol intake: current substance use type: marijuana Smoking Status: Former smoker tobacco type: cigarettes alcohol intake frequency: holidays/special occasions only Alcohol type: wine Substance Use Type: marijuana Exam Initial Vital Signs Initial Vital Signs: Vital Signs Temperature 98.2 F 01/26/21 12:47 Pulse Rate 83 01/26/21 12:47 Respiratory Rate 14 01/26/21 12:47 Blood Pressure 112/53 L 01/26/21 12:47 Pulse Oximetry 98 01/26/21 12:47 Const General: cooperative, comfortable and well developed HENMT Head: normal to inspection and normocephalic Eyes Pupils: PERRL Chest Chest: No tenderness Resp Effort & Inspection: normal respiratory effort Auscultation: clear to auscultation bilaterally Cardio Rate: regular rate Rhythm: regular rhythm GI Inspection: non-distended Palpation: soft Skin Lesions: no lesions Rashes: no rashes Neuro General: patient alert, patient awake and patient oriented x3 Cognition: normal cognition Speech: speech normal Extrem General: normal to inspection and capillary refill normal Psych Appearance: grossly normal and well kempt Scores GCS Mike coma scale eye opening: Spontaneous Lambert coma scale verbal response: Orientated Mike coma scale motor response: Obey commands Mike coma scale total score: 15 Course Orders Ordered: Discontinued Medications Sodium Chloride (Normal Saline 0.9%) 1,000 mls @ 1,000 mls/hr IV BOLUS ONE Stop: 01/26/21 14:36 Last Infusion: 01/26/21 15:44 Dose: 0 mls/hr Documented by: Admin: 01/26/21 14:38 Dose: 1,000 mls/hr Documented by: JAYLA Vital Signs Vital signs: Vital Signs - 8 hr 01/26/21 12:47 01/26/21 14:40 01/26/21 14:41 Temperature 98.2 F Pulse Rate 83 70 Respiratory Rate 14 Blood Pressure 112/53 L 108/61 Pulse Oximetry 98 98 100 01/26/21 15:00 01/26/21 17:37 Temperature Pulse Rate 72 70 Respiratory Rate Blood Pressure 109/74 136/75 Pulse Oximetry 99 98 MDM - Neuro Symptoms/Deficit Lab Data Attestation: I reviewed the patient's lab results. Result diagrams: 01/26/21 13:44 01/26/21 13:44 Labs: Lab Results 01/26/21 01/26/21 01/26/21 Range/Units 13:44 13:44 13:44 WBC 6.0 (4.5-11.0) X10^3/uL RBC 4.30 (4.0-5.2) X10^6/uL Hgb 13.5 (12.0-16.0) g/dL Hct 39.0 (36-46) % MCV 90.8 (80-100) fL MCH 31.3 (26-34) PG MCHC 34.5 (30-36) % RDW 13.4 (11.6-14.8) % Plt Count 200 (150-400) X10^3/uL Neut % (Auto) 69.3 (50-75) % Lymph % (Auto) 18.8 L (25-40) % [place] % (Auto) 8.6 (3-14) % Eos % (Auto) 2.6 (2-4) % Baso % (Auto) 0.7 (0-2) % Neut # (Auto) 4100 (6376-1225) /uL Lymph # (Auto) 1100 (0592-7506) /uL [place] # (Auto) 500 (0-900) /uL Eos # (Auto) 200 (0-450) /uL Baso # (Auto) 0 (0-100) /uL Sodium 142 (137-145) mmol/L Potassium 3.7 (3.4-5.1) mmol/L Chloride 107 (98-107) mmol/L Carbon Dioxide 26 (22-32) mmol/L BUN 12 (7-17) mg/dL Creatinine 0.68 (0.52-1.04) mg/dL Estimated GFR > 60.0 (>60) mL/min BUN/Creatinine Ratio 17.6 (6-22) Glucose 76 (70-100) mg/dL Calcium 9.5 (8.4-10.2) mg/dL Total Bilirubin 0.4 (0.2-1.3) mg/dL AST 28 (14-36) IU/L ALT 14 (<35) IU/L Alkaline Phosphatase 66 (38-126) U/L Total Protein 7.4 (6.3-8.2) g/dL Albumin 4.6 (3.5-5.0) g/dL Globulin 2.8 (1.7-4.1) g/dL Albumin/Globulin Ratio 1.6 (1.0-2.8) Lipase 36 (23-300) U/L TSH 0.081 L (0.47-4.68) uIU/mL Salicylates < 1.0 (<20) mg/dL Acetaminophen < 10 L (10-30) ug/mL Ethyl Alcohol < 10 ( - 10) mg/dL SARS-CoV-2 (PCR) (Negative) 01/26/21 Range/Units 15:22 WBC (4.5-11.0) X10^3/uL RBC (4.0-5.2) X10^6/uL Hgb (12.0-16.0) g/dL Hct (36-46) % MCV (80-100) fL MCH (26-34) PG MCHC (30-36) % RDW (11.6-14.8) % Plt Count (150-400) X10^3/uL Neut % (Auto) (50-75) % Lymph % (Auto) (25-40) % [place] % (Auto) (3-14) % Eos % (Auto) (2-4) % Baso % (Auto) (0-2) % Neut # (Auto) (6704-8460) /uL Lymph # (Auto) (1545-2981) /uL [place] # (Auto) (0-900) /uL Eos # (Auto) (0-450) /uL Baso # (Auto) (0-100) /uL Sodium (137-145) mmol/L Potassium (3.4-5.1) mmol/L Chloride (98-107) mmol/L Carbon Dioxide (22-32) mmol/L BUN (7-17) mg/dL Creatinine (0.52-1.04) mg/dL Estimated GFR (>60) mL/min BUN/Creatinine Ratio (6-22) Glucose (70-100) mg/dL Calcium (8.4-10.2) mg/dL Total Bilirubin (0.2-1.3) mg/dL AST (14-36) IU/L ALT (<35) IU/L Alkaline Phosphatase (38-126) U/L Total Protein (6.3-8.2) g/dL Albumin (3.5-5.0) g/dL Globulin (1.7-4.1) g/dL Albumin/Globulin Ratio (1.0-2.8) Lipase (23-300) U/L TSH (0.47-4.68) uIU/mL Salicylates (<20) mg/dL Acetaminophen (10-30) ug/mL Ethyl Alcohol ( - 10) mg/dL SARS-CoV-2 (PCR) Negative (Negative) Urine Dip Bedside Urine Glucose Negative Bedside Urine Bilirubin - Negative Bedside Urine Ketone - Negative Urine Specific Kress 1.015 Bedside Urine Occult Blood - Negative Bedside Urine pH 6 Bedside Urine Protein - Negative Bedside Urine Urobilinogen - Negative Bedside Urine Nitrite - Negative Bedside Urine Leukocytes - Negative Esterase Imaging Data CT scan - abdomen/pelvis: Radiologist's Impression: [facility] [place] [id number] Scan ReportSigned Patient: Sarah Floyd JMR#: [id number]: 1975Acct:[id number]/Sex: 45 / FDate of Service: 01/26/21Loc: EDAccession Number: [id number] Procedure: CT kidney ureter bladder (KUB) Ordering Provider: Donell Dixon D.O. PROCEDURE: CT KIDNEY URETER BLADDER (KUB) INDICATIONS: Right-sided flank pain eval for stone TECHNIQUE: Noncontrast 5 mm thick sections acquired from the diaphragms to the symphysis. 5 mm thick coronal and sagittal reformats were then performed. For radiation dose reduction, the following was used: automated exposure control, adjustment of mA and/or kV according to patient size. COMPARISON: [facility], CT, CT KIDNEY URETER BLADDER (KUB), 11/29/2018, 17:21. FINDINGS: Image quality: Excellent. Lung bases: Lung bases are clear. Heart size is normal. Urinary system: Both kidneys are normal in size. Nonobstructing 2 mm calculus within the right interpolar kidney posteriorly. Nonobstructing 2 mm calculus within the inferior pole left kidney. No hydronephrosis or perinephric fat stranding. Both ureters appear non-dilated throughout their expected courses. Bladder wall thickness is normal; no calcified bladder stones. Other solid organs: Liver is normal in size. Gallbladder is surgically absent . Pancreas is normal in contours. Spleen is normal in size. No adrenal nodules. Peritoneum and bowel: Unenhanced bowel loops demonstrate normal wall thickness and caliber. No free fluid or air. Appendix is not seen. No evidence of appendicitis. Nodes and vessels: No retroperitoneal or mesenteric adenopathy by size criteria. Aorta and inferior vena cava are normal in caliber. Abdominal wall: No ventral hernias. Pelvis: No free pelvic fluid. No inguinal hernias or adenopathy. Bones: No suspicious bony lesions. No vertebral body compression fractures. IMPRESSION: 1. Nonobstructing bilateral renal calculi. No evidence of ureteral calcification, nor obstruction. 2. Appendix not seen. No evidence of appendicitis. Dictated by: Conner Kat M.D. on 01/26/2021 at 14:50 Approved by: Conner Kat M.D. on 01/26/2021 at 14:52 CT scan - head: Radiologist's Impression: [address] [id number] Scan ReportSigned Patient: Sarah Floyd JMR#: [id number]: 1975Acct:[id number]/Sex: 45 / FDate of Service: 01/26/21Loc: EDAccession Number: [id number] Procedure: CT head/brain wo con Ordering Provider: Donell Dixon D.O. PROCEDURE: CT HEAD/BRAIN WO CON INDICATIONS: Headache, vision changes TECHNIQUE: Noncontrast 4.5 mm thick angled axial sections acquired from the foramen magnum to the vertex, with coronal and sagittal reformats. For radiation dose reduction, the following was used: automated exposure control, adjustment of mA and/or kV according to patient size. COMPARISON: [facility], CT, CT HEAD/BRAIN WO CON, 07/17/2019, 13:27. FINDINGS: Image quality: Excellent. CSF spaces: Basal cisterns are patent. No extra-axial fluid collections. Ventricles are normal in size and shape. Brain: No midline shift. No intracranial masses or hemorrhage. Keys-white matter interface is normal. Skull and face: Calvarium and visualized facial bones are intact, without suspicious lesions. Sinuses: Visualized sinuses and mastoids are clear. IMPRESSION: Normal for age, source of current headache symptoms is not seen. Dictated by: Tom Arguello M.D. on 01/26/2021 at 15:15 Approved by: Tom Arguello M.D. on 01/26/2021 at 15:16 ECG Data Attestation: I personally reviewed and interpreted this ECG as follows: Prior ECG tracings: not available for review Interpretation: Atrially paced Ventricular rate is 70 MO interval [address] T wave changes MDM Narrative Medical decision making narrative: It appears that the patient's symptoms today are chronic however just worsening. She stated that the only medicine that helps with her headache is the IM injection that she gets once a month. I contacted our pharmacy and we do not have that medicine here in the emergency department/Hospital. Her head CT is normal. Her abdominal CT shows no signs of acute pathology. The rest of her labs and urinalysis are unremarkable. Low suspicion for an acute infectious etiology. No signs of any surgical issues. Informed patient that she needs to talk with her primary doctor about further workup get in to see her testing shaking shipping and her neurologist. Informed her that I do not give opioid pain medication for headaches and that she needed to contact the pharmacy in order to get her injection of her medications. Patient was given return precautions. Discharge Plan Departure Patient Disposition: Home Clinical Impression: Headache, Abdominal pain Instructions: DI for Headache Activity Restrictions/Additional Instructions: I recommend that you follow-up with the pharmacy in order to get your does of your migraine medication. Contact your primary doctor for a follow-up. Your workup here in the emergency department is reassuring. There is no signs of any infections or surgical issues. Return to the emergency department for any new or worsening symptoms Prescriptions: No Action fluoxetine 40 mg capsule 40 mg PO DAILY RF: 0 tizanidine 2 mg tablet 4 mg PO BID RF: 0 levothyroxine 75 mcg tablet 75 mcg PO DAILY RF: 0 gabapentin 300 mg capsule 900 mg PO TID RF: 0 multivitamin Tablet 1 tab PO DAILY RF: 0 rizatriptan 10 mg tablet,disintegrating 10 mg PO .ONCE RF: 0 hydrocodone-acetaminophen 5-325 mg tablet 1 tab PO Q4H PRN (Reason: Pain, Severe) RF: 0 estradiol 1 mg tablet 1 mg PO QPM RF: 0 naproxen 500 mg tablet,delayed release (DR/EC) 500 mg PO BID PRN (Reason: PAIN) RF: 0 Referrals: Aroldo Hernandez DO [Primary Care Provider] -
--- NOTE | 2021-01-26 14:35 | DI.CT.S_ITS ---
PROCEDURE: CT HEAD/BRAIN WO CON INDICATIONS: Headache, vision changes TECHNIQUE: Noncontrast 4.5 mm thick angled axial sections acquired from the foramen magnum to the vertex, with coronal and sagittal reformats. For radiation dose reduction, the following was used: automated exposure control, adjustment of mA and/or kV according to patient size. COMPARISON: [facility], CT, CT HEAD/BRAIN WO CON, 07/17/2019, 13:27. FINDINGS: Image quality: Excellent. CSF spaces: Basal cisterns are patent. No extra-axial fluid collections. Ventricles are normal in size and shape. Brain: No midline shift. No intracranial masses or hemorrhage. Keys-white matter interface is normal. Skull and face: Calvarium and visualized facial bones are intact, without suspicious lesions. Sinuses: Visualized sinuses and mastoids are clear. IMPRESSION: Normal for age, source of current headache symptoms is not seen. Dictated by: Tom Arguello M.D. on 01/26/2021 at 15:15 Approved by: Tom Arguello M.D. on 01/26/2021 at 15:16
[2021-01-26 14:38] LABS: Thyroid Stimulating Hormone 0.081 uIU/mL (0.47-4.68)
[2021-01-26] MEDS: SODIUM CHLORIDE 0.9% 1,000 ML 1000 ML IV (14:38)
[2021-01-26 14:40] VITALS: O2SAT 98
[2021-01-26 14:41] VITALS: BP 108/61; PULSE 70; O2SAT 100
[2021-01-26 15:00] VITALS: BP 109/74; PULSE 72; O2SAT 99
[2021-01-26 15:45] LABS: COVID19 -Nasal RAPID Negative (Negative)
[2021-01-26 17:37] VITALS: BP 136/75; PULSE 70; O2SAT 98
== END 2021-01-26 17:38 | disposition home or self-care (01) ==
PROVIDERS: Emergency Provider Emergency Medicine; PCP Family Medicine
DX: R51.9 Headache, unspecified (principal); R10.9 Unspecified abdominal pain; Z95.0 Presence of cardiac pacemaker; R00.1 Bradycardia, unspecified; R42 Dizziness and giddiness; Z20.822 Contact with and (suspected) exposure to COVID-19
CPT/HCPCS: 36415; 70450; 74176; 80053; 80320; 80329; 81003; 83690; 84443; 85025; 87635; 93005; 96360; 99284; C9803; G0480

== ENCOUNTER 2022-12-17 15:39 | Emergency (ER) | payer BC, SELFPAY ==
[2020-05-23 10:37] VITALS: BMI 25.7
[2022-12-17 15:47] VITALS: BP 126/67; PULSE 60; RESP 16; TEMP 36.4; O2SAT 99; BMI 25.2
--- NOTE | 2022-12-17 16:32 | DI.CT.S_ITS ---
PROCEDURE: CT KIDNEY URETER BLADDER (KUB) INDICATIONS: nephrolithais TECHNIQUE: Axial sections were acquired from the lung bases to the pubic symphysis. Coronal and sagittal reformats were performed. For radiation dose reduction, the following was used: automated exposure control, adjustment of mA and/or kV according to patient size. COMPARISON: [facility], CT, CT KIDNEY URETER BLADDER (KUB), 01/26/2021, 14:31. FINDINGS: Image quality: Excellent. Lung bases: Unremarkable. Heart: Cardiac leads are partially visualized. URINARY: Right Kidney: Punctate nonobstructive nephrolithiasis. No surrounding fat stranding. Right Ureter: No hydroureter. Left Kidney: No stones or hydronephrosis. No surrounding fat stranding. Left Ureter: No hydroureter. Bladder: Normal wall thickness. No stones. ABDOMEN: Liver: Unremarkable. Gallbladder: Gallbladder is not identified. Biliary ducts: Unremarkable. Pancreas: Unremarkable. Spleen: Unremarkable. Adrenal Glands: Unremarkable. Stomach and Bowel: Stomach and small bowel are unremarkable. There is diffuse bowel wall thickening of the descending and sigmoid colon with minimal surrounding inflammatory changes. Moderate stool. Peritoneum: No abnormal intraperitoneal fluid. No free air. Ventral Wall: No hernia. Abdominal Nodes: No enlarged retroperitoneal or mesenteric lymph nodes. Vessels: Aorta and inferior vena cava are normal in size. PELVIS: Pelvic Organs: Unremarkable. Pelvic Nodes: Unremarkable. Miscellaneous: No inguinal hernias are seen. Bones: Unremarkable. IMPRESSION: 1. Punctate nonobstructive right nephrolithiasis. 2. Diffuse thickening of the sigmoid colon with questionable early inflammatory changes with surrounding diverticula may represent early diverticulitis. Recommended during patient is up-to-date with colonoscopy after resolution of current symptoms. 3. Moderate stool volume. Dictated by: Aroldo Farah M.D. on 12/17/2022 at 16:48 Approved by: Aroldo Farah M.D. on 12/17/2022 at 17:00
--- NOTE | 2022-12-17 16:36 | ED_ITS ---
HPI - Female Genitourinary <Dayami Spicer [facility] - Last Filed: 12/17/22 18:19> General Chief complaint: Urogenital-Female Stated complaint: blood in urine x2 Time Seen by Provider: 12/17/22 16:20 History of Present Illness HPI Narrative: This is a 47-year-old female with history of sick sinus syndrome with a pacemaker, hysterectomy, she presents to the emergency department with right- sided flank pain, dysuria, hematuria and states that she is had amee blood dripping in the toilet after she voided today. She denies fever chills, states that she is on midodrine for hypotension and states that she had to stay home from work for 3 days due to syncopal episodes home. She denies palpitations, chest pain, she is not anticoagulated. She denies any stool changes, upper respiratory symptoms including cough, congestion or sore throat. She endorses some mild abdominal cramping. Related Data Home Medications Medication Instructions Recorded Confirmed fluoxetine 40 mg capsule 40 mg PO DAILY 05/09/19 11/01/19 gabapentin 300 mg capsule 900 mg PO TID 05/09/19 11/01/19 levothyroxine 75 mcg tablet 75 mcg PO DAILY 05/09/19 11/01/19 multivitamin 1 tab PO DAILY 05/09/19 11/01/19 tizanidine 2 mg tablet 4 mg PO BID 05/09/19 11/01/19 rizatriptan 10 mg disintegrating 10 mg PO .ONCE 07/17/19 11/01/19 tablet estradiol 1 mg tablet 1 mg PO QPM 11/01/19 11/01/19 hydrocodone 5 mg-acetaminophen 325 1 tab PO Q4H PRN Pain, Severe 11/01/19 11/01/19 mg tablet naproxen 500 mg tablet,delayed 500 mg PO BID PRN PAIN 11/01/19 11/01/19 release Previous Rx's Medication Instructions Recorded ciprofloxacin HCl 500 mg tablet 500 mg PO BID 10 days #20 tabs 12/17/22 metronidazole 500 mg tablet 500 mg PO Q8H 10 days #30 tabs 12/17/22 polyethylene glycol 3350 17 17 g PO DAILY #238 grams 12/17/22 gram/dose oral powder (Miralax) Allergies Allergy/AdvReac Type Severity Reaction Status Date / Time acetaminophen [From Tylenol] Allergy Intermediate Hives Verified 12/17/22 15:50 dopamine Allergy Verified 12/17/22 15:50 Review of Systems <IVANNA Hand - Last Filed: 12/17/22 18:19> Review of Systems ROS Unobtainable: All systems reviewed & are unremarkable except as noted in HPI and below Patient History <IVANNA Hand - Last Filed: 12/17/22 18:19> Medical History Bladder prolapse, female, acquired History of renal calculi Lupus Surgical History History of laparoscopy (~05/13/19) Status post appendectomy Status post cholecystectomy Status post hysterectomy tobacco type: cigarettes alcohol intake frequency: holidays/special occasions only Alcohol type: wine Substance Use Type: does not use Exam <IVANNA Hand - Last Filed: 12/17/22 18:19> Narrative Exam Narrative: Reviewed vitals signs and nursing notes. General: cooperative, in no acute distress, well groomed HEENT: symmetrical facial expressions, moist mucous membranes, neck is supple CV: regular rate and rhythm, warm extremities Respiratory: Without abnormal breath sounds, normal work of breathing, without tachypnea, hypoxia. GI: abdomen soft, mild right-sided lower abdominal tenderness and right flank tenderness, nondistended, without masses, rebound tenderness, right CVA tenderness, CVAT on the left MSK: moves all extremities, neurovascularly intact, no weakness, normal tone Skin: brisk capillary refill, without rash or wound Neuro: normal speech and cognition, A&O x3, ambulatory, clear speech Initial Vital Signs Initial Vital Signs: Vital Signs Temperature 97.6 F 12/17/22 15:47 Pulse Rate 60 12/17/22 15:47 Respiratory Rate 16 12/17/22 15:47 Blood Pressure 126/67 12/17/22 15:47 Pulse Oximetry 99 12/17/22 15:47 Oxygen Delivery Method Room Air 12/17/22 15:47 <Donis Lawrence DO - Last Filed: 12/18/22 22:31> Initial Vital Signs Initial Vital Signs: Vital Signs Temperature 97.6 F 12/17/22 15:47 Pulse Rate 60 12/17/22 15:47 Respiratory Rate 16 12/17/22 15:47 Blood Pressure 126/67 12/17/22 15:47 Pulse Oximetry 99 12/17/22 15:47 Oxygen Delivery Method Room Air 12/17/22 15:47 Course <IVANNA Hand - Last Filed: 12/17/22 18:19> Orders Ordered: Discontinued Medications Ciprofloxacin (Ciprofloxacin 250 Mg Tablet) 500 mg PO NOW ONE Stop: 12/17/22 18:07 Last Admin: 12/17/22 18:31 Dose: Not Given Documented By: ALBERTO Ketorolac Tromethamine (Ketorolac 10 Mg Tablet) 10 mg PO NOW ONE Stop: 12/17/22 16:33 Last Admin: 12/17/22 16:58 Dose: 10 mg Documented By: ARIANNA Metronidazole (Metronidazole 500 Mg Tablet) 500 mg PO NOW ONE Stop: 12/17/22 18:07 Last Admin: 12/17/22 18:31 Dose: Not Given Documented By: ALBERTO Vital Signs Vital signs: Vital Signs - 8 hr 12/17/22 15:47 Temperature 97.6 F Pulse Rate 60 Respiratory Rate 16 Blood Pressure 126/67 Pulse Oximetry 99 Oxygen Delivery Method Room Air <Donis Lawrence DO - Last Filed: 12/18/22 22:31> Orders Ordered: Discontinued Medications Ciprofloxacin (Ciprofloxacin 250 Mg Tablet) 500 mg PO NOW ONE Stop: 12/17/22 18:07 Last Admin: 12/17/22 18:31 Dose: Not Given Documented By: ALBERTO Ketorolac Tromethamine (Ketorolac 10 Mg Tablet) 10 mg PO NOW ONE Stop: 12/17/22 16:33 Last Admin: 12/17/22 16:58 Dose: 10 mg Documented By: ARIANNA Metronidazole (Metronidazole 500 Mg Tablet) 500 mg PO NOW ONE Stop: 12/17/22 18:07 Last Admin: 12/17/22 18:31 Dose: Not Given Documented By: ALBERTO Vital Signs Vital signs: Vital Signs - 8 hr 12/17/22 15:47 Temperature 97.6 F Pulse Rate 60 Respiratory Rate 16 Blood Pressure 126/67 Pulse Oximetry 99 Oxygen Delivery Method Room Air MDM - Female Genitourinary <IVANNA Hand - Last Filed: 12/17/22 18:19> Lab Data Labs: Lab Results 12/17/22 Range/Units 15:55 Urine Color Yellow Urine Appearance Clear Urine pH 7.5 (4.5-8.0) Ur Specific [place] 1.015 (1.000-1.035) Urine Protein Negative (Negative) Urine Glucose (UA) Negative (Negative) g/dL Urine Ketones Negative (NEGATIVE) Urine Occult Blood Negative (Negative) Urine Nitrate Negative (Negative) Urine Bilirubin Negative (NEGATIVE) Urine Urobilinogen 0.2 (0.2) E.U./dL Ur Leukocyte Esterase Negative (NEGATIVE) Urine RBC None seen (0-5/HPF) Urine WBC 1-5/hpf (0-5/HPF) Ur Squamous Epith Cells 1-5 /hpf (0-5/HPF) Amorphous Sediment 1+ Urine Bacteria Occasional (0-1) (None) Urine Dip Bedside Urine Glucose Negative Bedside Urine Bilirubin - Negative Bedside Urine Ketone - Negative Urine Specific [place] 1.015 Bedside Urine Occult Blood - Negative Bedside Urine pH 7.5 Bedside Urine Protein - Negative Bedside Urine Urobilinogen - Negative Bedside Urine Nitrite - Negative Bedside Urine Leukocytes - Negative Esterase Imaging Data CT scan - abdomen/pelvis: Radiologist's Impression: PROCEDURE:? CT KIDNEY URETER BLADDER (KUB) ? INDICATIONS:? nephrolithais ? TECHNIQUE:? Axial sections were acquired from the lung bases to the pubic symphysis.? Coronal and sagittal reformats were performed.? For radiation dose reduction, the following was used: ?automated exposure control, adjustment of mA and/or kV according to patient size.? ? COMPARISON:? [facility], CT, CT KIDNEY URETER BLADDER (KUB), 01/26/2021, 14:31. ? FINDINGS:? Image quality:? Excellent.? ? Lung bases:? Unremarkable.? ? Heart:? Cardiac leads are partially visualized. ? URINARY: Right Kidney:? Punctate nonobstructive nephrolithiasis.? No surrounding fat stranding. Right Ureter:? No hydroureter. ? Left Kidney:? No stones or hydronephrosis.? No surrounding fat stranding. Left Ureter:? No hydroureter. ? Bladder:? Normal wall thickness. No stones. ? ? ? ABDOMEN: Liver:? Unremarkable.? ? Gallbladder:? Gallbladder is not identified. Biliary ducts:? Unremarkable.? ? Pancreas:? Unremarkable.? ? Spleen:? Unremarkable.? ? Adrenal Glands:? Unremarkable.? ? ? Stomach and Bowel:? Stomach and small bowel are unremarkable.? There is diffuse bowel wall thickening of the descending and sigmoid colon with minimal surrounding inflammatory changes.? Moderate stool. Peritoneum:? No abnormal intraperitoneal fluid.? No free air.? ? Ventral Wall: ? No hernia.? Abdominal Nodes:? No enlarged retroperitoneal or mesenteric lymph nodes.? Vessels:? Aorta and inferior vena cava are normal in size.? ? PELVIS: Pelvic Organs:? Unremarkable.? ? Pelvic Nodes: Unremarkable. Miscellaneous: No inguinal hernias are seen. ? ? ? Bones:? Unremarkable. ? IMPRESSION:? ? 1. Punctate nonobstructive right nephrolithiasis. 2. Diffuse thickening of the sigmoid colon with questionable early inflammatory changes with surrounding diverticula may represent early diverticulitis.? Recommended during patient is up-to-date with colonoscopy after resolution of current symptoms. 3. Moderate stool volume. ?? Dictated by: Aroldo Farah M.D. on 12/17/2022 at 16:48 ? ? Approved by: Aroldo Farah M.D. on 12/17/2022 at 17:00 ? MDM Narrative Medical decision making narrative: Chief Complaint: hematuria Independent historian: Patient Differential diagnoses include but are not limited to: atrophic vaginitis, acute cystitis, nephrolithiasis, obstructive uropathy, ureteral injury, bladder malignancy, urinary calculi, pyelonephritis, perineal infection. I have independently reviewed the patient's vital signs and nursing notes as well as prior records if available. Pertinent lab findings reviewed: UA and microscopy Pertinent Imaging reviewed: CT KUB shows punctate nonobstructive right nephrolithiasis, diffuse thickening of the sigmoid colon with questionable early inflammatory changes surrounding the diverticula maybe reserved presenting diverticulitis. She has a moderate stool volume, without fever, chills, nausea, vomiting or blood in her stool. She wears a peripad in his had blood on her peripad. UA is negative for abnormality today, will treat her with ciprofloxacin and Flagyl, encouraged her to stay hydrated, follow a clear liquid diet for the next 2 days, she was prescribed MiraLax, encouraged her to follow- up with her primary care provider for a recheck and to obtain a colonoscopy later this year. Patient understands her discharge instructions, she is nontoxic appearing, p.o. tolerant, and wishes to be discharged. Encouraged ibuprofen for her pain. Social considerations that may affect disposition: none Questions are addressed and there is agreement with the plan and for follow-up. Patient is appropriate for outpatient management. MIPS: This encounter doesn't have any diagnosis' associated with MIPS criteria. <Donis Lawrence, DO - Last Filed: 12/18/22 22:31> Lab Data Labs: Lab Results 12/17/22 Range/Units 15:55 Urine Color Yellow Urine Appearance Clear Urine pH 7.5 (4.5-8.0) Ur Specific [place] 1.015 (1.000-1.035) Urine Protein Negative (Negative) Urine Glucose (UA) Negative (Negative) g/dL Urine Ketones Negative (NEGATIVE) Urine Occult Blood Negative (Negative) Urine Nitrate Negative (Negative) Urine Bilirubin Negative (NEGATIVE) Urine Urobilinogen 0.2 (0.2) E.U./dL Ur Leukocyte Esterase Negative (NEGATIVE) Urine RBC None seen (0-5/HPF) Urine WBC 1-5/hpf (0-5/HPF) Ur Squamous Epith Cells 1-5 /hpf (0-5/HPF) Amorphous Sediment 1+ Urine Bacteria Occasional (0-1) (None) Urine Dip Bedside Urine Glucose Negative Bedside Urine Bilirubin - Negative Bedside Urine Ketone - Negative Urine Specific [place] 1.015 Bedside Urine Occult Blood - Negative Bedside Urine pH 7.5 Bedside Urine Protein - Negative Bedside Urine Urobilinogen - Negative Bedside Urine Nitrite - Negative Bedside Urine Leukocytes - Negative Esterase Discharge Plan Departure Patient Disposition: Home Clinical Impression: Diverticulitis, Nephrolithiasis Instructions: DI for Kidney Stones, DI for Diverticulitis Activity Restrictions/Additional Instructions: *You have been diagnosed with diverticulitis which are inflammatory changes of colon, and tiny kidney stones on the right without any inflammatory changes of the kidney, ureter or bladder. Unfortunately/fortunately the urine did not show blood in it today so we will treat you for diverticulitis with two antibiotics, this will also treat the urine if it is infected. I want you to follow-up with your regular doctor for a recheck, you may benefit from a colonoscopy after you have healed from this. Please follow clear liquid diet for the next 1-2 days, take MiraLax for soft stool, ibuprofen as needed and follow-up with your regular doctor. I hope you start feeling better soon, sorry the CT report took so long to come back. Your medications to [facility], hopefully you can pick them up today, you received your 1st dose here. I have also since you MiraLax to help have soft stools. There is a moderate amount of stool in her colon and if the colon wall is inflamed like yours is then it can be more painful to pass. Please take ibuprofen or naproxen with food and water to help treat this inflammation. *What to do: *Please continue to take your regular medications as directed. [x] New medication prescriptions sent to your pharmacy: [[facility]] [ ] New medication written as a paper prescription [ ] No new medications given *Please follow up with your primary care provider in 2-3 days, call for an appointment. Let them know you were seen in the Emergency Department and that we asked that you be seen for follow-up. We will electronically transmit a record of today's note if your PCP is in our system *If you do not have a primary care provider please contact [phone] to establish care with one of the [facility] primary care providers. *Return to Emergency Department if you should have any new, worsening, or concerning symptoms, such as [fever greater than 101F, chills, worsening pain, persistent vomiting or other bothersome symptoms]. Prescriptions: New ciprofloxacin HCl 500 mg tablet 500 mg PO BID 10 Days Qty: 20 0RF polyethylene glycol 3350 [Miralax] 17 gram/dose powder 17 g PO DAILY Qty: 238 0RF metronidazole 500 mg tablet 500 mg PO Q8H 10 Days Qty: 30 0RF No Action fluoxetine 40 mg capsule 40 mg PO DAILY Patient Comments: TAKE 1 CAPSULE BY MOUTH ONCE DAILY tizanidine 2 mg tablet 4 mg PO BID Patient Comments: TAKE 2 TABLETS BY MOUTH TWICE DAILY levothyroxine 75 mcg tablet 75 mcg PO DAILY Patient Comments: PATIENT STATES TAKES AT NIGHT gabapentin 300 mg capsule 900 mg PO TID Patient Comments: TAKE 3 CAPSULES BY MOUTH THREE TIMES DAILY multivitamin Tablet 1 tab PO DAILY rizatriptan 10 mg tablet,disintegrating 10 mg PO .ONCE Patient Comments: DISSOLVE 1 TABLET ON THE TONGUE AND ALLOW TO DISSOLVE ONE TIME hydrocodone-acetaminophen 5-325 mg tablet 1 tab PO Q4H PRN (Reason: Pain, Severe) Patient Comments: TK 1 T PO UP TO 6 XD PRF SEVERE PAIN Rx Instructions: TK 1 T PO UP TO 6 XD PRF SEVERE PAIN estradiol 1 mg tablet 1 mg PO QPM Patient Comments: TAKE 1 TABLET BY MOUTH ONCE DAILY naproxen 500 mg tablet,delayed release (DR/EC) 500 mg PO BID PRN (Reason: PAIN) Patient Comments: TK 1 T PO BID Referrals: Aroldo Hernandez DO [Primary Care Provider] - Stand Alone Forms: Patient Portal/API <Donis Lawrence DO - Last Filed: 12/18/22 22:31> Cosign ED Attending Cosignature Attestation: I was immediately available in the department for consultation. This documentation has been reviewed and I agree with assessment and plan. Supervised by Donis Lawrence DO
[2022-12-17 16:54] LABS: Appearance Urine UA CLEAR; Bilirubin Urine UA NEGATIVE (NEGATIVE); Color Urine UA YELLOW; Glucose Urine UA NEGATIVE (Negative); Ketones Urine UA NEGATIVE (NEGATIVE); Leukocyte Esterase Urine UA NEGATIVE (NEGATIVE); Nitrite Urine UA NEGATIVE (Negative); Occult Blood Urine UA NEGATIVE (Negative); Protein Urine UA NEGATIVE (Negative); Specific Gravity Urine UA 1.015 (1.000-1.035); Urobilinogen Urine UA 0.2 E.U./dL (0.2)
[2022-12-17 16:55] LABS: pH Urine UA 7.5 (4.5-8.0)
[2022-12-17] MEDS: KETOROLAC 10 MG TABLET PO (16:58)
[2022-12-17 17:05] LABS: RBC Urine None Seen (0-5/HPF)
[2022-12-17 17:06] LABS: Amorphous Sediment Urine 1+; Bacteria Urine Occasional (0-1); Squamous Epithelial Cell Urine 1-5 /HPF (0-5/HPF); WBC Urine 1-5/HPF (0-5/HPF)
[2022-12-17 18:33] VITALS: BP 137/78; PULSE 61; RESP 18; O2SAT 98
== END 2022-12-17 18:34 | disposition home or self-care (01) ==
PROVIDERS: Emergency Provider Nurse Practitioner Critical Care Medicine; PCP Family Medicine
DX: K57.92 Diverticulitis of intestine, part unspecified, without perforation or abscess without bleeding (principal); N20.0 Calculus of kidney; R10.9 Unspecified abdominal pain; Z95.0 Presence of cardiac pacemaker
CPT/HCPCS: 74176; 81001; 81003; 87086; 99283; 99284

== ENCOUNTER → 2023-02-25 11:54 | Outpatient (CLI) | payer BC, SELFPAY ==
[2020-05-23 10:37] VITALS: BMI 25.7
--- NOTE | 2023-02-25 11:58 | DI.CT.S_ITS ---
PROCEDURE: CT ANGIO PELVIS INDICATIONS: Sick sinus syndrome TECHNIQUE: After the administration of intravenous contrast, 2.5 mm sections acquired from the diaphragm to the iliac crests. 10 mm maximum intensity projection (MIP) coronal and sagittal reformats were then performed. For radiation dose reduction, the following was used: automated exposure control. COMPARISON: None. FINDINGS: Image quality: Excellent. Vascularity of the pelvis is symmetric, normal caliber, and patent. No evidence of significant arterial stenosis, embolus, or venous embolus. Extravascular soft tissues including the bowel loops appear normal. There has been appendectomy. Genitourinary soft tissues demonstrate normal ovarian tissue and changes of hysterectomy. The urinary bladder is normal given under distension. There is no adenopathy or hernia. No free fluid, fluid collection, or pelvic hematoma. Osseous structures demonstrate severe L4-5 disc height loss and mild endplate spurring. The musculature is normal. IMPRESSION: 1. Normal CT of the pelvis with the aforementioned surgical changes. Dictated by: Linda Fisher M.D. on 02/25/2023 at 16:05 Approved by: Linda Fisher M.D. on 02/25/2023 at 16:10
== END ==
PROVIDERS: PCP Family Medicine; Referring Provider Internal Medicine Cardiovascular Disease; Visit Provider Internal Medicine Cardiovascular Disease
DX: I49.5 Sick sinus syndrome (principal)
CPT/HCPCS: 72191; Q9967

== ENCOUNTER → 2025-07-29 11:09 | Outpatient (CLI) | payer OTHER, SELFPAY ==
[2025-06-26 14:52] VITALS: BMI 25.7
== END ==
PROVIDERS: PCP Family Medicine; Visit Provider Obstetrics & Gynecology
DX: N94.10 Unspecified dyspareunia (principal)
CPT/HCPCS: 87077; 87086